=== PATIENT | female | born 2000 | race Caucasian/White ===

== ENCOUNTER 2019-03-05 14:48 | Outpatient (RCR) | payer OTHER, SELFPAY ==
[2019-02-02 12:21] LABS: Hematocrit 30.2 % (37.0-47.0); Hemoglobin 9.9 g/dL (12.0-15.0)
[2019-02-02 12:33] LABS: Glucose 1 Hour PP 50gm Dose 80 mg/dL
[2019-02-02 13:14] LABS: HIV 1/2 Ab P24 Ag Result Negative (Negative)
[2019-02-02] MEDS: RHO(D) IMMUNE GLOBULIN 300 MCG SYRINGE IM (18:10)
[2019-02-03 09:15] LABS: Rapid Plasma Reagin Non-Reactive (NonReactive)
== END 2019-05-03 23:59 | disposition home or self-care (01) ==
PROVIDERS: Visit Provider Obstetrics & Gynecology
DX: Z36.89 Encounter for other specified antenatal screening (principal); Z29.13 Encounter for prophylactic Rho(D) immune globulin; O36.0990 Maternal care for other rhesus isoimmunization, unspecified trimester, not applicable or unspecified; Z3A.00 Weeks of gestation of pregnancy not specified
CPT/HCPCS: 36415; 36430; 82947; 85014; 85018; 86592; 86703; 86850; 90384; 96372; G0432; J2790

== ENCOUNTER 2019-04-10 09:51 | Observation (INO) | payer OTHER, SELFPAY ==
[2019-04-10 10:00] VITALS: BMI 41.8
[2019-04-10 10:31] VITALS: BP 122/105; PULSE 137
[2019-04-10 10:46] VITALS: BP 137/101; PULSE 86
[2019-04-10 11:01] VITALS: BP 138/62; PULSE 97
[2019-04-10 11:16] VITALS: BP 141/79; PULSE 84
[2019-04-10 11:31] VITALS: BP 137/95; PULSE 85
[2019-04-10 11:37] VITALS: BP 121/66; PULSE 74
--- NOTE | 2019-04-10 14:50 | OBADM ---
This patient, Rain Ramirez, admitted to the OB room OB Post 115 for observation. Patient/family oriented to hospital policies and general routines including ID bracelet, bed and alarms, visiting hours, pain management, procedures, bathroom and other care routines, personal items, smoking policy, room service/diet, and visiting hours. Patient/Family are encouraged to report perceived risks to care and to ask questions if they do not understand what they are told or what they should do.
--- NOTE | 2019-04-24 12:14 | PM.OBTRLD ---
OB - Triage/Final Diagnosis Final Diagnosis (1) False labor: Code(s): O47.9 - False labor, unspecified Status: Acute
== END 2019-04-10 12:20 | disposition home or self-care (01) ==
PROVIDERS: Admitting Provider Obstetrics & Gynecology; Visit Provider Obstetrics & Gynecology
DX: O47.03 False labor before 37 completed weeks of gestation, third trimester (principal); Z3A.36 36 weeks gestation of pregnancy
CPT/HCPCS: G0378; G0379

== ENCOUNTER 2019-04-21 16:49 | Observation (INO) | payer OTHER, SELFPAY ==
--- NOTE | 2019-04-21 16:49 | OBADM ---
This patient, Rain Ramirez, admitted to the OB room Labor/Delivery/Recovery 105 for observation. Patient/family oriented to hospital policies and general routines including ID bracelet, bed and alarms, visiting hours, pain management, procedures, bathroom and other care routines, personal items, smoking policy, room service/diet, and visiting hours. Patient/Family are encouraged to report perceived risks to care and to ask questions if they do not understand what they are told or what they should do.
[2019-04-21 18:15] VITALS: BMI 42.5
[2019-04-21 19:06] VITALS: RESP 20; TEMP 37
[2019-04-21 19:07] VITALS: BP 134/74; PULSE 90
[2019-04-21 19:16] VITALS: BP 132/83; PULSE 99
--- NOTE | 2019-05-17 12:01 | PM.OBTRLD ---
OB - Triage/Final Diagnosis Visit Information Date of evaluation: 03/23/19 Reason for evaluation: threatened labor
== END 2019-04-21 19:43 | disposition home or self-care (01) ==
PROVIDERS: Admitting Provider Obstetrics & Gynecology; PCP Obstetrics & Gynecology; Visit Provider Obstetrics & Gynecology
DX: O47.1 False labor at or after 37 completed weeks of gestation (principal); Z3A.38 38 weeks gestation of pregnancy
CPT/HCPCS: G0378; G0379

== ENCOUNTER 2019-10-26 13:03 | Outpatient (CLI) | payer OTHER, SELFPAY ==
[2019-10-26 13:51] LABS: Basophils Percent Auto 0.3 % (0.2-1.2); Eosinophils Absolute Auto 0.2 K/mm3 (0-0.3); Eosinophils Percent Auto 2.7 % (0-4.4); Hematocrit 36.5 % (37.0-47.0); Hemoglobin 11.9 g/dL (12.0-15.0); Immature Granulocyte Absolute 0.03 K/mm3 (0.00-0.031); Immature Granulocyte Percent A 0.4 % (0-0.5); Lymphocytes Absolute Auto 2.14 K/mm3 (0.9-3.2); Mean Corpuscular HGB Conc 32.6 g/dl (32-36); Mean Corpuscular Hemoglobin 24.9 pg (26-34); Mean Corpuscular Volume 76.5 fl (80-100); Mean Platelet Volume 11.2 fl (7.4-10.4); Monocytes Absolute Auto 0.4 K/mm3 (0.1-0.6); Monocytes Percent Auto 5.9 % (2.6-8.5); Neutrophils Absolute Auto 4.3 K/mm3 (1.3-6.7); Neutrophils Percent Auto 60.7 % (45.5-73.1); Platelet Count Result 252 k/mm3 (150-375); Red Blood Count 4.77 M/mm3 (4.2-5.4); Red Cell Distribution Width 15.4 % (11.5-14.5); White Blood Count 7.1 K/mm3 (4.5-10.0)
[2019-10-26 14:04] LABS: Alanine Aminotransferase 23 U/L (4-35); Albumin Level 4.2 g/dL (3.5-5.1); Alkaline Phosphatase 113 U/L (38-126); Anion Gap 12.2 mmol/L (7-16); Aspartate Amino Transferase 23 U/L (14-36); Bilirubin,Total 0.1 mg/dL (0.2-1.3); Blood Urea Nitrogen 13 mg/dL (7-17); Calcium 8.7 mg/dL (8.4-10.2); Carbon Dioxide 24 mmol/L (22-30); Chloride 106 mmol/L (98-107); Estimated Glomerular Filt Rate > 60; Glucose 108 mg/dL (65-105); Potassium 4.2 mmol/L (3.4-5.0); Sodium 138 mmol/L (137-145)
[2019-10-26 14:09] LABS: Rheumatoid Factor < 8.6 IU/ML (<12)
[2019-10-26 14:27] LABS: Erythrocyte Sedimentation Rate 11 mm/hr (0-20)
== END 2019-10-26 13:04 | disposition home or self-care (01) ==
PROVIDERS: Visit Provider Internal Medicine
DX: E03.9 Hypothyroidism, unspecified (principal); E78.2 Mixed hyperlipidemia; D53.9 Nutritional anemia, unspecified
CPT/HCPCS: 36415; 80053; 82607; 84443; 85025; 85652; 86430

== ENCOUNTER 2020-06-20 12:31 | Emergency (ER) | payer OTHER, SELFPAY ==
--- NOTE | ~2020-06-20 | XR_ITS ---
[[id number] ] INDICATION: Left rib pain TECHNIQUE: Frontal projection of the upper left ribs, frontal projection of the lower left ribs, obli que projection of all the left ribs, frontal inspiratory chest x-ray for interpretation. FINDINGS: There are no displaced rib fractures identified. There are no soft tissue abnormality see n. The lungs are clear. IMPRESSION: 1:No displaced rib fractures. Reviewed, dictated and finalized at location A.
[2020-06-20 12:33] VITALS: BP 142/88; PULSE 85; RESP 16; TEMP 36.4; O2SAT 100
--- NOTE | 2020-06-20 14:15 | ED.GENADULT ---
HPI - General Adult General Chief complaint: Fall Stated complaint: Fall on Wednesday/ right rib pain Time Seen by Provider: 06/20/20 12:46 History of Present Illness HPI narrative: Patient is a 19-year-old female otherwise healthy who comes to the emergency room today complaining of pain in left ribs and left sided headache after mechanical fall 2 days ago. Patient reports that she was in her bathroom and she slipped on the wet floor and her left side landed in the bathtub. She thinks that she landed on the left side of her rib cage and she did hit the left side of her head. She did not lose consciousness, there has been no vomiting and she is not on blood thinners. She says that she has been feeling foggy meaning that she is having some trouble concentrating since this fall. Her left-sided rib pain is worse with movements of her trunk. It does get worse with deep breaths but she does not feel short of breath and she does not have much pain with coughing. Denies any other injuries or symptoms or concerns. Does not believe that she is . Related Data Home Medications Medication Instructions Recorded Confirmed PNV cmb#95-ferrous fumarate-FA 1 tablet PO DAILY 03/05/19 04/21/19 [] Allergies Allergy/AdvReac Type Severity Reaction Status Date / Time sumatriptan Allergy Mild Hives Verified 04/14/19 14:31 amoxicillin Allergy Unknown Hives / Verified 04/14/19 14:31 Red Face Penicillins Allergy Unknown Rash Verified 04/14/19 14:31 Review of Systems Constitutional: Constitutional: Reports as per HPI, Denies fever(s), Denies night sweats and Denies weakness Cardiovascular: Cardiovascular: Denies chest pain, Denies edema, Denies leg edema, Denies dyspnea and Denies orthopnea Respiratory: Respiratory: Denies cough and Denies dyspnea Gastrointestinal: Gastrointestinal: Denies abdominal pain, Denies constipation, Denies diarrhea, Denies nausea and Denies vomiting Musculoskeletal: Musculoskeletal: Reports as per HPI (See HPI for left-sided rib pain), Denies abnormal gait, Denies back pain, Denies numbness and Denies tingling Neurologic: Denies Abnormal speech present, Denies abnormal gait, Denies numbness, Denies tingling and Denies weakness Comments: See HPI for left-sided headache Psychiatric: Psychiatric: Denies homicidal ideation and Denies suicidal ideation [facility] Past Medical History Medical History (Updated 06/20/20 @ 15:12 by Lucas Armstrong PA-C) Anxiety Arthritis Depression Migraine Family History Family History Father Diabetes mellitus Cataract Grandparent Cataract Diabetes mellitus Other Breast cancer Social History Social History Smoking status: Former smoker Substance use: never Gender identity (if verbalized by the patient): Female Spiritual care concerns: No Exam Const: General: cooperative, healthy appearing, comfortable, no acute distress, well developed, alert, awake and Physically active Orientation/consciousness: patient oriented x3 Other: Pleasant, no distress HENMT: Head: normal to inspection, normocephalic, atraumatic (Of ecchymosis, edema or any signs of trauma) and other (Nontender to palpate over left side of head ) Ears: external ears normal General nose exam: Normal external nose present Other: Negative berman sign. No hemotympanum. Negative raccoon eyes. Eyes: Pupils: Equal, round and reactive pupils present EOM: EOMs intact bilaterally Neck: Neck: normal visual inspection Chest: Chest palpation & inspection: normal inspection of the chest and no tenderness Resp: Effort & Inspection: normal respiratory effort and able to speak in complete sentences Auscultation: clear to auscultation bilaterally Cardio: Rate: regular rate Rhythm: regular rhythm GI: Inspection: normal to inspection GI Palp: No abdominal tenderness : General: Yes no CVA tenderness Back/Spine/Pelvis
== END 2020-06-20 15:46 | disposition home or self-care (01) ==
PROVIDERS: Emergency Provider Emergency Medicine; PCP Internal Medicine
DX: S20.212A Contusion of left front wall of thorax, initial encounter (principal); S06.0X0A Concussion without loss of consciousness, initial encounter; F41.9 Anxiety disorder, unspecified; M19.90 Unspecified osteoarthritis, unspecified site; F32.9 Major depressive disorder, single episode, unspecified; W18.2XXA Fall in (into) shower or empty bathtub, initial encounter
CPT/HCPCS: 71101; 99283

== ENCOUNTER 2021-06-03 15:27 | Outpatient (CLI) | payer OTHER, SELFPAY ==
--- NOTE | ~2021-06-03 | US_ITS ---
EXAMINATION: US abdomen limited EXAM DATE: 06/03/2021 15:55 INDICATION: Abdominal pain. TECHNIQUE: Multiple grayscale and Doppler images of the abdomen right upper quadrant were obtained (anderson y a technologist who performed the scan) and subsequently reviewed. There is no prior study for leobardo priest. FINDINGS: The pancreatic head and body are normal in appearance. The pancreatic tail is not visualized. The l iver has normal echogenicity and contour. There are no focal liver lesions identified. There is no evidence of intrahepatic biliary duct dilation. Portal venous flow was seen in the hepatopedal, nor mal direction and has normal Doppler waveform. No right-sided hydronephrosis. Common bile duct measures 4 mm, which is normal. The gallbladder wall is normal in thickness, with ex pected amount of distention. No sonographic evidence of pericholecystic fluid. There is no cholelit hiases. Technologist performing exam reports patient did not demonstrate sonographic Castaneda's sign. Please note that this sign is less reliable in patients who have received pain medication. IMPRESSION: 1. Unremarkable abdominal ultrasound exam. Reviewed, dictated and finalized at location A. 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
[2021-06-03 16:24] LABS: Basophils Percent Auto 0.2 % (0.2-1.2); Eosinophils Absolute Auto 0.1 K/mm3 (0-0.3); Hematocrit 39.3 % (37.0-47.0); Immature Granulocyte Absolute 0.02 K/mm3 (0.00-0.031); Immature Granulocyte Percent A 0.2 % (0-0.5); Lymphocytes Absolute Auto 2.82 K/mm3 (0.9-3.2); Lymphocytes Percent Auto 29.9 % (18.3-44.2); Mean Corpuscular HGB Conc 33.1 g/dl (32-36); Mean Corpuscular Hemoglobin 26.4 pg (26-34); Mean Corpuscular Volume 79.9 fl (80-100); Mean Platelet Volume 10.4 fl (7.4-10.4); Monocytes Absolute Auto 0.4 K/mm3 (0.1-0.6); Monocytes Percent Auto 4.6 % (2.6-8.5); Neutrophils Percent Auto 64.1 % (45.5-73.1); Platelet Count Result 239 k/mm3 (150-375); Red Blood Count 4.92 M/mm3 (4.2-5.4); Red Cell Distribution Width 14.6 % (11.5-14.5); White Blood Count 9.4 K/mm3 (4.5-10.0)
[2021-06-03 16:40] LABS: Add Urine Microscopic? YES; Appearance Urine Cloudy (Clear); Bacteria Urine Trace /hpf; Bilirubin Urine Negative (Negative); Blood Urine Negative (Negative); Color Urine Yellow (Yellow); Glucose Urine UA Negative (Negative); Ketones Urine Negative (Negative); Leukocyte Esterase Ur Negative LEU/UL (NEGATIVE); Mucus Urine Rare /lpf; Nitrate Urine Negative (Negative); Protein Urine Negative (Negative); Specific Grav Ur 1.027 (1.001-1.035); Squamous Epithelial Cell Urine Many /hpf (Few); Urobilinogen Urine Negative mg/dL (<2.0); WBC Urine 0-3 /hpf (0-3)
[2021-06-03 16:58] LABS: Alanine Aminotransferase 19 U/L (4-35); Albumin Level 4.2 g/dL (3.5-5.1); Alkaline Phosphatase 70 U/L (38-126); Amylase 78 U/L (30-110); Anion Gap 5 mmol/L (8-16); Aspartate Amino Transferase 26 U/L (14-36); Bilirubin,Total 0.5 mg/dL (0.2-1.3); Blood Urea Nitrogen 11 mg/dL (7-17); Carbon Dioxide 29 mmol/L (22-30); Chloride 105 mmol/L (98-107); Estimated Glomerular Filt Rate > 60; Glucose 82 mg/dL (65-110); Potassium 4.2 mmol/L (3.4-5.0); Sodium 139 mmol/L (137-145)
[2021-06-04 11:49] LABS: LDL Cholesterol Direct 116 mg/dL
[2021-06-04 11:55] LABS: Beta HCG Quantitative < 2.39 mIU/ML
== END 2021-06-03 15:28 | disposition home or self-care (01) ==
PROVIDERS: PCP Internal Medicine; Visit Provider Internal Medicine
DX: R10.9 Unspecified abdominal pain (principal); E11.65 Type 2 diabetes mellitus with hyperglycemia; D53.9 Nutritional anemia, unspecified; E03.9 Hypothyroidism, unspecified; N39.0 Urinary tract infection, site not specified; E78.2 Mixed hyperlipidemia; K58.9 Irritable bowel syndrome, unspecified
CPT/HCPCS: 36415; 76705; 80053; 81001; 82150; 82607; 83721; 84443; 84702; 85025

== ENCOUNTER 2021-08-20 09:59 | Emergency (ER) | payer BC, OTHER, SELFPAY ==
--- NOTE | ~2021-08-20 | US_ITS ---
EXAMINATION: US OB <= 14 weeks fetus DATE: 08/20/2021 13:09 INDICATION: Pelvic cramping. Evaluate heart motions. TECHNIQUE: Real-time transabdominal and transvaginal obstetric ultrasound. FINDINGS: No prior studies for comparison. There is an intrauterine gestational sac, with pole identified. The crown rump length measures 2.16 cm, which correlates with a estimated gestational age of 8 weeks 6 days. No heart motions are detected. The ovaries are within normal limits. IMPRESSION: 1. Intrauterine gestational sac containing pole which corresponds to 8 week 6 day gestation. No heart motions are detected, compatible with demise. Recommend follow-up with serial edith titative beta-hCG levels and ultrasound as clinically indicated. Reviewed, dictated and finalized at location A. IMPRESSION: 1. Intrauterine gestational sac containing pole which corresponds to 8 we ek 6 day gestation. No heart motions are detected, compatible with demise. Recommend follow-up with serial quantitative beta-hCG levels and ultras ound as clinically indicated.
[2021-08-20 10:02] VITALS: BP 128/66; PULSE 98; RESP 18; TEMP 36.4; O2SAT 98
[2021-08-20 10:38] LABS: Basophils Percent Auto 0.3 % (0.2-1.2); Eosinophils Absolute Auto 0.2 K/mm3 (0-0.3); Hematocrit 37.6 % (37.0-47.0); Hemoglobin 12.6 g/dL (12.0-15.0); Immature Granulocyte Absolute 0.02 K/mm3 (0.00-0.031); Immature Granulocyte Percent A 0.3 % (0-0.5); Lymphocytes Absolute Auto 2.32 K/mm3 (0.9-3.2); Lymphocytes Percent Auto 30.4 % (18.3-44.2); Mean Corpuscular HGB Conc 33.5 g/dl (32-36); Mean Corpuscular Hemoglobin 27.2 pg (26-34); Mean Corpuscular Volume 81.2 fl (80-100); Mean Platelet Volume 10.5 fl (7.4-10.4); Monocytes Absolute Auto 0.5 K/mm3 (0.1-0.6); Monocytes Percent Auto 6.2 % (2.6-8.5); Neutrophils Absolute Auto 4.6 K/mm3 (1.3-6.7); Neutrophils Percent Auto 59.8 % (45.5-73.1); Platelet Count Result 233 k/mm3 (150-375); Red Blood Count 4.63 M/mm3 (4.2-5.4); Red Cell Distribution Width 14.3 % (11.5-14.5); White Blood Count 7.6 K/mm3 (4.5-10.0)
[2021-08-20 11:53] VITALS: BP 110/62; PULSE 79; RESP 16; TEMP 36.8; O2SAT 100
--- NOTE | 2021-08-20 12:15 | PC.NURSE ---
unable to dopple heart tones
--- NOTE | 2021-08-20 12:35 | ED.PREGNANCY ---
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 She presents today with complaints of lower abdominal cramping that started last night. Patient denies any vaginal bleeding or vaginal discharge. Patient states she has been to the OB already and IUP is confirmed. Patient denies any aggravating or alleviating factors. Related Data Home Medications Medication Instructions Recorded Confirmed vit no.95-ferrous 1 tablet PO DAILY 03/05/19 04/21/19 fumarate 28 mg-folic acid 800 mcg tablet () Allergies Allergy/AdvReac Type Severity Reaction Status Date / Time sumatriptan Allergy Mild Hives Verified 04/14/19 14:31 amoxicillin Allergy Unknown Hives / Verified 04/14/19 14:31 Red Face Penicillins Allergy Unknown Rash Verified 04/14/19 14:31 Review of Systems Review of Systems: CONSTITUTIONAL: Denies fever, chills, or sweats. EYES: Denies visual changes, redness, or discharge. ENT: Denies rhinorrhea, congestion, sore throat, or otalgia. CARDIOVASCULAR: Denies chest pain, palpitations, or edema. RESPIRATORY: Denies cough or dyspnea. GASTROINTESTINAL: Denies abdominal pain, nausea, vomiting, or diarrhea. GENITOURINARY: Lower abdominal cramping. Denies dysuria or hematuria. SKIN: Denies rash or itching. MUSCULOSKELETAL: Denies back pain, joint pain, or myalgia. NEUROLOGIC: Denies headache, numbness, dizziness, or weakness. PSYCHIATRIC: Denies anxiety or depression. [facility] Past Medical History Medical History Anxiety Arthritis Depression Migraine Family History Family History Father Diabetes mellitus Cataract Grandparent Cataract Diabetes mellitus Other Breast cancer Social History Social History Smoking status: Former smoker Substance use: never Gender identity (if verbalized by the patient): Female Spiritual care concerns: No Exam Narrative: GENERAL: Well-appearing, well-nourished, and in no acute distress. HEAD: Normocephalic, atraumatic. EYES: PERRLA and EOMI. ENT: Nares clear, no rhinorrhea or epistaxis. Mucous membranes moist. Oropharynx without tonsillar hypertrophy exudate or other lesions. Bilateral TMs pearly garcia nonbulging NECK: Supple. No adenopathy or masses. No carotid bruits or JVD CHEST: Clear to auscultation. No respiratory distress. No wheezes rales or rhonchi HEART: Regular rate and rhythm. No murmur heard. Normal peripheral pulses. ABDOMEN: Soft, nontender, nondistended, normal active bowel sounds. Unable to obtain heart rate with Doppler. Ultrasound ordered EXTREMITIES: Normal range of motion. No edema. SKIN: Warm, dry, no rash. NEURO: No focal deficits. Alert and oriented x3. PSYCH: Normal mood and affect. Course Course Emergency Course: Patient updated with ultrasound results that is correlates with 8 weeks gestation. Patient aware at current time there is not a heartbeat found. Patient aware of need for repeat hCG on Wednesday. Patient given information on abdominal pain in , threatened miscarriage, and instructed to make an appointment on Wednesday with Dr. Hawthorne. Consultations Consultation #1: Dr. Hawthorne consulted and aware of ultrasound. Requests repeat hCG on Wednesday order given. RhoGAM ordered and given today. Patient to follow-up on Wednesday with him. Discharged home Vital Signs Vital signs: Vital Signs Temperature 36.4 C 08/20/21 10:02 Pulse Rate 98 08/20/21 10:02 Respiratory Rate 18 08/20/21 10:02 Blood Pressure 128/66 08/20/21 10:02 Pulse Oximetry 98 08/20/21 10:02 Oxygen Delivery Room Air
[2021-08-20] MEDS: RHO(D) IMMUNE GLOBULIN 300 MCG/2 ML SYRINGE IM (14:42)
== END 2021-08-20 14:42 | disposition home or self-care (01) ==
PROVIDERS: Family Medicine; Emergency Provider Nurse Practitioner Family; PCP Internal Medicine
DX: O20.0 Threatened abortion (principal); Z3A.08 8 weeks gestation of pregnancy; Z87.891 Personal history of nicotine dependence
CPT/HCPCS: 36415; 76801; 84702; 85025; 85461; 90384; 96372; 99284; J2790

== ENCOUNTER 2021-08-22 12:02 | Outpatient (CLI) | payer BC, OTHER, SELFPAY | END 2021-08-22 12:03 | disposition home or self-care (01) | PROVIDERS: PCP Internal Medicine; Visit Provider Nurse Practitioner Family | DX: O20.0 Threatened abortion (principal); Z3A.00 Weeks of gestation of pregnancy not specified | CPT/HCPCS: 36415; 84702 ==

== ENCOUNTER 2021-09-21 06:24 | Emergency (ER) | payer BC, MEDICAID, SELFPAY ==
[2021-09-21 06:31] VITALS: BP 123/76; PULSE 96; RESP 18; TEMP 36.6; O2SAT 98
--- NOTE | 2021-09-21 07:20 | ED.GENADULT ---
HPI - General Adult General Chief complaint: Headache Stated complaint: headache Time Seen by Provider: 09/21/21 06:48 History of Present Illness HPI narrative: 20-year-old female presenting the emergency department for evaluation of migraine headache along with posterior headache and sore throat. Patient states over the last 2 days she began developing a sore throat. Patient states she has also been having increased migraine frequency since August 20. Patient states she has had increased life stressors recently. And patient attributes this to her increased migraine frequency. Patient describes her current headache as frontal and as a band that wraps around the back of her head. Patient does have associated light sensitivity with nausea. Related Data Home Medications Medication Instructions Recorded Confirmed vit no.95-ferrous 1 tablet PO DAILY 03/05/19 04/21/19 fumarate 28 mg-folic acid 800 mcg tablet () Allergies Allergy/AdvReac Type Severity Reaction Status Date / Time sumatriptan Allergy Mild Hives Verified 04/14/19 14:31 amoxicillin Allergy Unknown Hives / Verified 04/14/19 14:31 Red Face Penicillins Allergy Unknown Rash Verified 04/14/19 14:31 diphenhydramine Allergy Chest Pain Verified 09/21/21 07:22 [From Benadryl] Review of Systems Review of Systems: CONSTITUTIONAL: Denies fever, chills, or sweats. EYES: Denies visual changes, redness, or discharge. ENT: Denies rhinorrhea, congestion, sore throat, or otalgia. CARDIOVASCULAR: Denies chest pain, palpitations, or edema. RESPIRATORY: Denies cough or dyspnea. GASTROINTESTINAL: Denies abdominal pain, nausea, vomiting, or diarrhea. GENITOURINARY: Denies dysuria or hematuria. SKIN: Denies rash or itching. MUSCULOSKELETAL: Denies back pain, joint pain, or myalgia. NEUROLOGIC: See HPI [facility] Past Medical History Medical History Anxiety Arthritis Depression Migraine Family History Family History Father Diabetes mellitus Cataract Grandparent Cataract Diabetes mellitus Other Breast cancer Social History Social History Smoking status: Former smoker Substance use: never Gender identity (if verbalized by the patient): Female Spiritual care concerns: No Exam Narrative: APPEARANCE: Well appearing, no pain, no distress, well-nourished. HEAD: normocephalic, atraumatic. EYES: PERRLA/EOMI, conjunctivae clear. NOSE: Normal no drainage EARS:TMS clear with good light reflex. THROAT: Pharynx clear, no exudate. NECK: Supple. No adenopathy, no masses. RESPIRATORY: Airway patent, respirations nonlabored. Clear to auscultation bilaterally, no rales, rhonchi, wheezing. CARDIOVASCULAR: Regular rate and rhythm without murmurs rubs or gallops. ABDOMINAL: Soft, nontender, nondistended, normal bowel sounds MUSCULOSKELETAL: Moves all extremities. Strength/ROM intact, No edema, No calf tenderness. NEURO: Alert. Cranial nerves II through XII intact. Good gait. Good coordination. No meningeal signs SKIN: Warm, dry. Normal Color Course Course Emergency Course: Patient reports her headache is resolved. Patient is resting comfortably. Patient's COVID test was negative. Patient was updated on the results of her work-up. Patient was comfortable with the plan for discharge and close follow-up with her primary care physician. All questions and concerns were addressed. Vital Signs Vital signs: Vital Signs Temperature 97.8 F 09/21/21 06:31 Pulse Rate 96 09/21/21 06:31 Respiratory Rate 18 09/21/21 06:31 Blood Pressure 123/76 09/21/21 06:31 Pulse Oximetry 98 09/21/21 06:31 Oxygen Delivery Room Air 09/21/21 06:31 Temperature 97.8 F 09/21/21 06:31 Pulse Rate 75 09/21/21 09:32 Respiratory Rate 18 09/21/21 09:32 Blood Pressure 107/64
[2021-09-21] MEDS: PROCHLORPERAZINE EDISYLATE 10 MG/2 ML VIAL IV PUSH (07:41)
[2021-09-21] MEDS: SODIUM CHLORIDE 0.9% IV 1,000 ML 999 ML IV CONT (07:41)
[2021-09-21 08:04] LABS: SARS-CoV-2 RNA PCR Negative
[2021-09-21] MEDS: KETOROLAC 15 MG/ML VIAL (*BKC) IV PUSH (08:06)
[2021-09-21 08:09] VITALS: BP 126/75; PULSE 88; RESP 16; O2SAT 99
[2021-09-21 09:32] VITALS: BP 107/64; PULSE 75; RESP 18; O2SAT 98
== END 2021-09-21 09:34 | disposition home or self-care (01) ==
PROVIDERS: Emergency Provider Emergency Medicine; PCP Internal Medicine
DX: R51.9 Headache, unspecified (principal); Z20.822 Contact with and (suspected) exposure to COVID-19; M19.90 Unspecified osteoarthritis, unspecified site
CPT/HCPCS: 81025; 87081; 96361; 96374; 96375; 99284; C9803; J0780; J1885; J7030; U0003; U0005

== ENCOUNTER 2021-10-06 17:23 | Outpatient (CLI) | payer BC, MEDICAID, SELFPAY ==
[2021-10-06 18:05] LABS: Basophils Absolute Auto 0.02 K/mm3 (0.00-0.10); Basophils Percent Auto 0.2 % (0.0-1.0); Eosinophils Absolute Auto 0.16 K/mm3 (0.02-0.50); Eosinophils Percent Auto 1.6 % (1.0-6.0); Hematocrit 38.6 % (35.0-49.0); Hemoglobin 12.4 g/dL (12.0-15.0); Immature Granulocyte Absolute 0.05 K/mm3 (0.00-0.00); Immature Granulocyte Percent A 0.5 % (0.0-0.0); Lymphocytes Absolute Auto 2.89 K/mm3 (1.10-4.50); Lymphocytes Percent Auto 28.8 % (18.0-42.0); Mean Corpuscular HGB Conc 32.1 g/dL (32.0-36.0); Mean Corpuscular Hemoglobin 26.6 pg (27.0-31.0); Mean Corpuscular Volume 82.8 fL (78.0-102.0); Mean Platelet Volume 10.3 fl (9.2-11.8); Monocytes Absolute Auto 0.62 K/mm3 (0.10-0.90); Monocytes Percent Auto 6.2 % (2.0-11.0); Neutrophils Absolute Auto 6.3 K/mm3 (1.7-7.2); Neutrophils Percent Auto 62.7 % (50.0-70.0); Platelet Count Result 252 K/mm3 (150-420); Red Blood Count 4.66 M/mm3 (4.20-5.40); Red Cell Distribution Width 14.1 % (11.6-14.4)
[2021-10-06 18:36] LABS: Alanine Aminotransferase 24 U/L (14-59); Albumin Level 3.5 g/dL (3.4-5.0); Alkaline Phosphatase 100 U/L (46-116); Anion Gap 6 mmol/L (8-16); Aspartate Amino Transferase 11 U/L (15-37); Bilirubin,Total 0.2 mg/dL (0.00-1.00); Blood Urea Nitrogen 16 mg/dL (7-18); Calcium 8.5 mg/dL (8.5-10.1); Carbon Dioxide 28 mmol/L (21-32); Chloride 105 mmol/L (98-108); Estimated Glomerular Filt Rate > 60; Ferritin 46 ng/mL (8-252); Glucose 109 mg/dL (70-99); Iron 47 ug/dL (50-170); Osmolality Calculated 290 mOsm/kg (285-295); Percent Iron Saturation 15 % (12-57); Potassium 4.6 mmol/L (3.5-5.1); Sodium 139 mmol/L (136-145); Thyroid Stimulating Hormone 2.48 uIU/mL (0.36-3.74); Total Protein 6.7 g/dL (6.4-8.2)
[2021-10-08 17:21] LABS: Vitamin D 25 Hydroxy 20 ng/mL (30-100)
== END 2021-10-06 17:24 | disposition home or self-care (01) ==
LOC: CHSLAB 17:26
PROVIDERS: PCP Clinical Nurse Specialist; Visit Provider Clinical Nurse Specialist
DX: G43.909 Migraine, unspecified, not intractable, without status migrainosus (principal); E64.9 Sequelae of unspecified nutritional deficiency; E07.9 Disorder of thyroid, unspecified; E55.9 Vitamin D deficiency, unspecified
CPT/HCPCS: 36415; 80053; 82306; 82728; 83540; 83550; 84443; 85025

== ENCOUNTER 2023-04-08 08:52 | Emergency (ER) | payer OTHER, SELFPAY ==
[2023-04-08 09:35] VITALS: BP 115/69; PULSE 79; RESP 20; TEMP 36.7; O2SAT 100
--- NOTE | 2023-04-08 09:58 | ED.FEMALEGU ---
HPI - Female Genitourinary General Chief complaint: Urogenital-Female Stated complaint: Sore Throat; Uti symptoms Time Seen by Provider: 04/08/23 09:53 Source: patient and RN notes reviewed Mode of arrival: ambulatory Limitations: no limitations History of Present Illness HPI Narrative: Patient presents today complaining of 3 day history of sore throat without any additional upper respiratory symptoms. Pain increases with swallowing. History of tonsillectomy. She has tried no [id number] treatment prior to arrival. She also reports a 2 day history of lower abdominal pressure and urinary frequency. Related Data Home Medications Medication Instructions Recorded Confirmed epinephrine 0.3 mg/0.3 mL 0.3 mg subcut ONCE 10/06/21 04/08/23 injection syringe Allergies Allergy/AdvReac Type Severity Reaction Status Date / Time sumatriptan Allergy Mild Hives Verified 04/14/19 14:31 amoxicillin Allergy Unknown Hives / Verified 04/14/19 14:31 Red Face Penicillins Allergy Unknown Rash Verified 04/14/19 14:31 diphenhydramine Allergy Chest Pain Verified 09/21/21 07:22 [From [facility]] Review of Systems Review of Systems: CONSTITUTIONAL: Denies body aches, fever, chills, or sweats. EYES: Denies visual changes, redness, or discharge. ENT: Denies rhinorrhea, congestion,or otalgia.+ sore throat CARDIOVASCULAR: Denies chest pain, palpitations, or edema. RESPIRATORY: Denies cough or dyspnea. GASTROINTESTINAL: Denies abdominal pain, nausea, vomiting, or diarrhea. GENITOURINARY: Denies dysuria or hematuria.+ lower abdominal pressure, frequency SKIN: Denies rash, itching, or wounds. MUSCULOSKELETAL: Denies back pain, joint pain, or myalgia. NEUROLOGIC: Denies headache, numbness, tingling, or weakness. PSYCH: Denies depression or anxiety. [facility] Past Medical History Medical History Allergies Anxiety Arthritis Depression Migraine Thyroid disorder Family History Family History Father Diabetes mellitus Cataract Grandparent Cataract Diabetes mellitus Hypertension Other Breast cancer Social History Social History Smoking status: Former smoker Alcohol intake: current Alcohol use details: occasionally Substance use type: does not use Gender identity (if verbalized by the patient): Female Spiritual care concerns: No Comments At time of signature, I have reviewed and agree with nursing past medical, surgical, social and family history unless otherwise noted. Please see nursing chart for further information. There is no relevant family history pertinent to the presenting complaint Exam Narrative: GENERAL: Well-appearing, well-nourished, and in no acute distress. HEAD: Normocephalic, atraumatic. EYES: EOMI. No redness or drainage. Conjunctivae normal. ENT: Mucous membranes pink and moist. Nares clear. No rhinorrhea. TMs normal bilaterally. Throat mildly erythematous without edema or exudate. Uvula midline. NECK: Normal AROM. Supple. No lymphadenopathy. CHEST: No respiratory distress. Clear to auscultation. HEART: Regular rate and rhythm. No murmur appreciated. ABDOMEN: Soft, nontender, nondistended, normal active bowel sounds. EXTREMITIES: Normal range of motion. No edema. SKIN: Warm, dry, no rash. Capillary refill normal. Normal skin turgor. NEURO: No focal deficits. Alert and oriented x3. Gait steady. PSYCH: Normal affect. No signs of depression or anxiety. Course Course Level of Care: Express Care Visit Vital Signs Vital signs: Vital Signs Temperature 98.1 F 04/08/23 09:35 Pulse Rate 79 04/08/23 09:35 Respiratory Rate 20 04/08/23 09:35 Blood Pressure 115/69 04/08/23 09:35 Pulse Oximetry 100 04/08/23 09:35 Temperature 98.1 F 04/08/23 09:35 Pulse Rate 79
== END 2023-04-08 10:26 | disposition home or self-care (01) ==
PROVIDERS: Emergency Provider Nurse Practitioner; PCP Clinical Nurse Specialist
DX: N30.01 Acute cystitis with hematuria (principal); B95.7 Other staphylococcus as the cause of diseases classified elsewhere; J02.9 Acute pharyngitis, unspecified; Z87.891 Personal history of nicotine dependence; M19.90 Unspecified osteoarthritis, unspecified site
CPT/HCPCS: 81003; 87077; 87081; 87086; 87088; 87880; 99213; G0463

== ENCOUNTER 2023-04-14 11:52 | Emergency (ER) | payer OTHER, SELFPAY ==
--- NOTE | 2023-04-14 11:58 | ED.URI ---
HPI - URI/Sore Throat General Chief Complaint: Upper Respiratory Infection Stated Complaint: BODY ACHES/COUGH/SWOLLEN GLANDS/LIGHT HEADED/MARTINI Time Seen by Provider: 04/14/23 11:58 Source: patient and RN notes reviewed History of Present Illness HPI Narrative: Patient is a 22-year-old female who presents to urgent care with complaints of body aches, chills, slight cough, swollen lymph nodes and lightheadedness. Patient is currently on Bactrim for UTI that was diagnosed in our facility on April 08 for Staphylococcus. Patient states that she has been taking the medication appropriately and has not used azo and 4 days. Patient states that she is urinating without difficulty and has increased her water intake. Patient states that symptoms started on Wednesday after she did a strenuous leg workout. Patient appears to be concerned for rhabdomyolysis however she has never had the condition in the past and does not currently show any signs or symptoms of rhabdomyolysis. Patient was also requesting to be retested for strep which was negative on April 08 as well as influenza. Patient has been taking Tylenol and ibuprofen at home and increasing fluid intake. No other acute complaints. No acute distress noted. Patient aware of the plan of care. Some parts of this dictation were generated by voice recognition software and may contain typographical and/or grammatical inaccuracies. Related Data Home Medications Medication Instructions Recorded Confirmed epinephrine 0.3 mg/0.3 mL 0.3 mg subcut ONCE 10/06/21 04/14/23 injection syringe metronidazole 500 mg tablet 500 mg PO DIRECTED 04/14/23 04/14/23 Allergies Allergy/AdvReac Type Severity Reaction Status Date / Time sumatriptan Allergy Mild Hives Verified 04/14/23 11:59 amoxicillin Allergy Unknown Hives / Verified 04/14/23 11:59 Red Face Penicillins Allergy Unknown Rash Verified 04/14/23 11:59 diphenhydramine Allergy Chest Pain Verified 04/14/23 11:59 [From [place]] Review of Systems Review of Systems: CONSTITUTIONAL: Reports of fever and chills EYES: Denies visual changes, redness, or discharge. ENT: Denies rhinorrhea, congestion, otalgia. Reports of sore throat CARDIOVASCULAR: Denies chest pain, palpitations, or edema. RESPIRATORY: Reports a mild cough without dyspnea GASTROINTESTINAL: Denies abdominal pain, nausea, vomiting, or diarrhea. GENITOURINARY: Denies dysuria or hematuria. SKIN: Denies rash or itching. MUSCULOSKELETAL: Reports body aches NEUROLOGIC: Denies headache, numbness, or weakness. All other systems reviewed are negative, except as documented in HPI. [facility] Past Medical History Medical History Allergies Anxiety Arthritis Depression Migraine Thyroid disorder Family History Family History Father Diabetes mellitus Cataract Grandparent Cataract Diabetes mellitus Hypertension Other Breast cancer Social History Social History Smoking status: Former smoker Alcohol intake: current Alcohol use details: occasionally Substance use type: does not use Gender identity (if verbalized by the patient): Female Spiritual care concerns: No Comments At the time of my signature, I reviewed and agree with the nursing past medical, surgical, social, and family history. There is no relevant family history pertinent to the patient complaint. Exam Narrative: GENERAL: This is a well-nourished, well-developed patient, in no apparent distress. Slightly flushed HEAD: normocephalic, atraumatic. EYES: PERRL. Sclera clear/white. Vision is grossly intact. EARS: External ears normal, auditory canals clear and without drainage, TMs normal without perforation. Hearing grossly intact. NOSE: External nose normal with no obvious nasal discharge, nares without r
[2023-04-14 12:10] VITALS: BP 114/68; PULSE 118; RESP 16; TEMP 37.6; O2SAT 99
== END 2023-04-14 12:39 | disposition home or self-care (01) ==
PROVIDERS: Emergency Provider Nurse Practitioner Family; PCP Clinical Nurse Specialist
DX: B34.9 Viral infection, unspecified (principal); Z87.891 Personal history of nicotine dependence; M19.90 Unspecified osteoarthritis, unspecified site
CPT/HCPCS: 87081; 87804; 87880; 99213; G0463

== ENCOUNTER 2023-04-14 17:32 | Inpatient (IN) | payer OTHER, SELFPAY ==
[2023-04-14] VITALS (15 sets, daily range): BP systolic 94–152; BP diastolic 56–67; PULSE 86–125; RESP 14–29; TEMP 36.7–37.6; O2SAT 97–99; BMI 38.5
--- NOTE | ~2023-04-14 | XR_ITS ---
EXAMINATION: XR chest 2V DATE: 04/15/2023 13:16 INDICATION: Fever. Neutropenia. TECHNIQUE: Frontal and lateral views of the chest were obtained on 3 radiographs. COMPARISON: Chest radiograph 06/20/2020 FINDINGS: There is no pneumonia, pleural effusion, or pneumothorax. The heart size is normal. IMPRESSION: 1. No acute cardiopulmonary disease. Reviewed, dictated and finalized at location [facility] [employer]
--- NOTE | 2023-04-14 18:02 | ED.GENADULT ---
HPI - General Adult General Chief complaint: Unspecified Stated complaint: fatigue; fever; feeling faint Time Seen by Provider: 04/14/23 17:49 Source: patient Mode of arrival: ambulatory Limitations: no limitations History of Present Illness HPI narrative: 22-year-old female history of anxiety/depression, migraine,,miscarriage 2 years ago, anaphylactic shock secondary to multiple agents, presented to an urgent care with body ache /sore throat and fatigue. She tested negative for strep but positive for urinary tract infection and received Bactrim. The patient went back to the urgent care today -- fever, fatigue -- generalized weakness -- sore throat -- the patient had unprotected sex in the past 2 weeks with different partners. No vaginal discharge. No lower abdominal pain. -- Body ache which came on after she worked out in the gym. she has sore leg muscles. Onset (ago): day(s) ( Seven days) Severity: moderate Quality: aching Pain Consistency: constant Relieving factors: none Exacerbating factors: none Related Data Home Medications Medication Instructions Recorded Confirmed epinephrine 0.3 mg/0.3 mL 0.3 mg subcut ONCE 10/06/21 04/14/23 injection syringe Allergies Allergy/AdvReac Type Severity Reaction Status Date / Time sumatriptan Allergy Mild Hives Verified 04/14/23 17:56 amoxicillin Allergy Unknown Hives / Verified 04/14/23 17:56 Red Face Penicillins Allergy Unknown Rash Verified 04/14/23 17:56 diphenhydramine Allergy Chest Pain Verified 04/14/23 17:56 [From Benadryl] Review of Systems Review of Systems: All systems reviewed & are unremarkable except as noted in HPI and below Constitutional: Constitutional: Reports as per HPI, Reports no additional constitutional complaints, Reports fatigue and Reports weakness Eyes: Eyes: Reports as per HPI and Reports no additional eye complaints ENT: Reports system reviewed and no additional complaints, except as documented and Reports as per HPI Cardiovascular: Cardiovascular: Reports as per HPI and Reports no additional cardiovascular complaints Respiratory: Respiratory: Reports as per HPI and Reports no additional respiratory complaints Gastrointestinal: Gastrointestinal: Reports as per HPI and Reports no additional gastrointestinal complaints Genitourinary: Genitourinary: Reports no additional female genitourinary complaints Comments: no vaginal discharge. Musculoskeletal: Musculoskeletal: Reports no additional musculoskeletal complaints and Reports as per HPI Integumentary/Breasts: Skin/Breast: Reports system reviewed and no additional complaints, except as docu and Reports as per HPI Neurologic: Reports system reviewed and no additional complaints, except as documented and Reports as per HPI Psychiatric: Psychiatric: Reports no additional psychiatric complaints and Reports as per HPI Endocrine: Endocrine: Reports no additional endocrine complaints and Reports as per HPI Hematologic/Lymphatic: Hematologic/Lymphatic: Reports no additional hematologic/lymphatic complaints and Reports as per HPI Allergic/Immunologic: Allergic/Immunologic: Reports no additional allergic/immunologic complaints and Reports as per HPI [facility] Past Medical History Medical History Allergies Anxiety Arthritis Depression Migraine Thyroid disorder Family History Family History Father Diabetes mellitus Cataract Grandparent Cataract Diabetes mellitus Hypertension Other Breast cancer Social History Social History Smoking status: Former smoker Alcohol intake: current Alcohol use details: occasionally Substance use type: does not use Gender identity (if verbalized by the patient): Female Spiritual care concerns: No Exam Const: General: no a
[2023-04-14 18:34] LABS: Hematocrit 37.9 % (35.0-49.0); Hemoglobin 12.5 g/dL (12.0-15.0); Mean Corpuscular Hemoglobin 25.7 pg (27.0-31.0); Mean Platelet Volume 10.6 fl (9.2-11.8); Platelet Count Result 154 K/mm3 (150-420); Red Blood Count 4.86 M/mm3 (4.20-5.40); Red Cell Distribution Width 14.5 % (11.6-14.4); White Blood Count 2.6 K/mm3 (4.8-10.8)
[2023-04-14 18:48] LABS: Appearance Urine Clear (Clear); Bilirubin Urine Negative (Negative); Blood Urine Negative (Negative); Color Urine Light Yellow (Yellow); Glucose Urine UA Negative (Negative); Ketones Urine 1+ (Negative); Leukocyte Esterase Ur Negative LEU/UL (Negative); Nitrate Urine Negative (Negative); Protein Urine Negative (Negative); Specific Grav Ur 1.015 (1.010-1.020); Urobilinogen Urine 0.2 mg/dL (0.2-1.0)
[2023-04-14 18:53] LABS: Pregnancy On Board Control Positive; Urine Pregnancy Test Negative
[2023-04-14 18:54] LABS: Add Urine Microscopic? YES; Bacteria Urine Trace /hpf; RBC Urine 0-2 /hpf (0-2); Squamous Epithelial Cell Urine Few /hpf (Few); WBC Urine 0-3 /hpf (0-3)
[2023-04-14 19:08] LABS: Alanine Aminotransferase 81 U/L (14-59); Albumin Level 3.6 g/dL (3.4-5.0); Alkaline Phosphatase 69 U/L (46-116); Anion Gap 10 mmol/L (8-16); Aspartate Amino Transferase 206 U/L (15-37); Band Neutrophils Percent 9 % (0-6); Bilirubin,Total 0.3 mg/dL (0.00-1.00); Blood Urea Nitrogen 12 mg/dL (7-18); Carbon Dioxide 25 mmol/L (21-32); Chloride 97 mmol/L (98-108); Estimated CRCL calculation 79 ml/min; Estimated Glomerular Filt Rate > 60; Glucose 129 mg/dL (70-99); Neutrophils Absolute Manual 2.08 K/mm3 (1.7-7.2); Neutrophils Percent Manual 71 % (46-73); Osmolality Calculated 275 mOsm/kg (285-295); Potassium 3.8 mmol/L (3.5-5.1); Sodium 132 mmol/L (136-145); Total Cells Counted 100
[2023-04-14 19:09] LABS: Basophils Percent Manual 0 % (0-1); Eosinophils Absolute Manual 0.13 K/mm3 (0.02-0.5); Eosinophils Percent Manual 5 % (1-6); Lymphocytes Absolute Manual 0.26 K/mm3 (1.1-4.5); Lymphocytes Percent Manual 10 % (18-44); Metamyelocytes Percent 2 %; Monocytes Absolute Manual 0.07 K/mm3 (0.1-0.90); Monocytes Percent Manual 3 % (3-9); Platelet Estimate Adequate (Adequate)
[2023-04-14] MEDS: AZITHROMYCIN 250 MG TABLET 1000 MG PO (19:16)
[2023-04-14 19:19] LABS: HIV 1 P24 AG Negative (Negative); HIV 1/2 AB Negative (Negative)
[2023-04-14 19:27] LABS: SARS-CoV-2 RNA PCR Negative (Negative)
[2023-04-14 19:30] LABS: Influenza A QL RT-PCR Negative (Negative); Influenza B QL RT-PCR Negative (Negative); RSV RNA, RT-PCR Negative (Negative)
[2023-04-14 19:36] LABS: Creatine Kinase 13359 U/L (26-192)
[2023-04-14] MEDS: cefTRIAXone 1 GM VIAL 0.5 GM IM (19:39)
--- NOTE | 2023-04-14 20:10 | PC.NURSE ---
Labs back and ERP spoke c pt about admit/transfer for Rhabdo dx. Pt wants transfer to [place]. 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
[2023-04-14] MEDS: methylPREDNISolone SOD SUCC 40 MG VIAL IV PUSH (20:11)
[2023-04-14] MEDS: SODIUM CHLORIDE 0.9% IV 1,000 ML 999 ML IV CONT ×3 (20:11→21:34)
--- NOTE | 2023-04-14 21:05 | PC.NURSE ---
Dr Aguilar called and spoke c Dr Segura, POC to admit here and not transfer to [place]. Pt informed on POC.
--- NOTE | 2023-04-14 21:35 | PC.NURSE ---
Pt c/o her mouth feeling itchy from the Rocephin, Order obtained for Claritin po since pt unable to take benedryl.
[2023-04-14] MEDS: LORATADINE 10 MG TABLET PO (21:58)
[2023-04-14] MEDS: ACETAMINOPHEN 325 MG TABLET 650 MG PO (21:58)
--- NOTE | 2023-04-14 22:32 | ADMGEN ---
This patient, Rain Ramirez, was admitted to 2nd Floor Room 209-1. Patient oriented to hospital policies and general routines including ID bracelet, bed and alarms, visiting hours, pain management, procedures, bathroom and other care routines, personal items, smoking policy, room service/diet, and visiting hours. Information on how to activate the Rapid Response Team has been discussed. Patient are encouraged to report perceived risks to care and to ask questions if they do not understand what they are told or what they should do.
[2023-04-14] MEDS: SODIUM CHLORIDE 0.9% IV 1,000 ML 250 ML IV CONT (23:26)
[2023-04-15] VITALS (8 sets, daily range): BP systolic 104–109; BP diastolic 41–68; PULSE 64–97; RESP 14–19; TEMP 36.6–38.6; O2SAT 98–100
[2023-04-15] MEDS: LACTATED RINGERS 1,000 ML 125 ML IV CONT ×3 (04:32→23:43)
[2023-04-15 05:25] LABS: Hematocrit 36.2 % (35.0-49.0); Hemoglobin 11.7 g/dL (12.0-15.0); Mean Corpuscular HGB Conc 32.3 g/dL (32.0-36.0); Mean Corpuscular Hemoglobin 25.8 pg (27.0-31.0); Mean Corpuscular Volume 79.7 fL (78.0-102.0); Mean Platelet Volume 11.2 fl (9.2-11.8); Platelet Count Result 144 K/mm3 (150-420); Red Blood Count 4.54 M/mm3 (4.20-5.40); Red Cell Distribution Width 14.6 % (11.6-14.4); White Blood Count 1.7 K/mm3 (4.8-10.8)
[2023-04-15 05:53] LABS: Band Neutrophils Percent 16 % (0-6); Basophils Percent Manual 0 % (0-1); Eosinophils Percent Manual 0 % (1-6); Lymphocytes Absolute Manual 0.25 K/mm3 (1.1-4.5); Lymphocytes Percent Manual 15 % (18-44); Metamyelocytes Percent 2 %; Monocytes Absolute Manual 0.06 K/mm3 (0.1-0.90); Monocytes Percent Manual 4 % (3-9); Myelocytes Percent 1 %; Neutrophils Absolute Manual 1.32 K/mm3 (1.7-7.2); Neutrophils Percent Manual 62 % (46-73); Total Cells Counted 100
[2023-04-15 05:54] LABS: Anion Gap 10 mmol/L (8-16); Atypical Lymphocytes Present; Blood Urea Nitrogen 8 mg/dL (7-18); Calcium 7.7 mg/dL (8.5-10.1); Carbon Dioxide 24 mmol/L (21-32); Chloride 103 mmol/L (98-108); Estimated CRCL calculation 103 ml/min; Estimated Glomerular Filt Rate > 60; Glucose 128 mg/dL (70-99); Osmolality Calculated 284 mOsm/kg (285-295); Platelet Estimate Adequate (Adequate); Potassium 4.6 mmol/L (3.5-5.1); Sodium 137 mmol/L (136-145)
[2023-04-15 06:58] LABS: Creatine Kinase 12087 U/L (26-192)
--- NOTE | 2023-04-15 08:11 | PM.IMHP ---
H&P: HPI History of Present Illness Date/Time: 04/15/23 08:11 Chief Complaint: body aches Narrative: This is a 22 year old female patient with vague symptoms including body aches and flu like symptoms who originally sought care in ER due to concern for STD like HIV causing symptoms. She reports she had intense workout on Wednesday04/10/23 and has been ill since then. On ER workup she received empiric treatment with azithromycin and Rocephin and developed localized pruritic rash at injection site. Labs were drawn and CK level over 13,000. Patient received IV fluids and admitted for rhabdomyolysis. Interestingly her UA was negative for occult blood/myoglobin. Minor cough reported. Negative Flu/RSV/Covid. WBC noted to be depressed at 1.7 this morning with 16% bands. No other infectious source beyond viral syndrome found. CXR negative, UA normal, patient just completed treatment for UTI with Bactrim. Patient to stay on IV fluids and recheck labs in the morning. Patient aware to expect 3-5 days before much improvement seen in CK levels. Review of Systems Review of Systems: All systems reviewed & are unremarkable except as noted in HPI and below PMFSH Past Medical History Medical History Allergies Anxiety Arthritis Depression Migraine Thyroid disorder Family History Family History Father Diabetes mellitus Cataract Grandparent Cataract Diabetes mellitus Hypertension Other Breast cancer Social History Social History Years smoked: 11 Smoking status: Former smoker Tobacco type: cigarettes and e-cigarettes/vaping Smoking end date: 02/06/24 Alcohol intake: never Alcohol use details: occasionally Substance use: current Substance use type: marijuana Last use: 04/12/2023 Do You Feel Safe in your Home?: Yes Lack of Transportation: No Lack of Food: Never True Current Housing: I Have Housing Concerned About Future Housing: No Difficulty Paying Gas/Electric Bills: No Difficulty Paying for Meds: No Currently Unemployed: No Education: High School Diploma/GED Difficulty w/ Childcare or Family Care: No Gender identity (if verbalized by the patient): Female Spiritual care concerns: Yes (Mormonism) Meds Home Medications and Allergies Home Medications Medication Instructions Recorded Confirmed Type epinephrine 0.3 mg/0.3 mL 0.3 mg subcut ONCE 10/06/21 04/14/23 History injection syringe Allergies Allergy/AdvReac Type Severity Reaction Status Date / Time sumatriptan Allergy Mild Hives Verified 04/14/23 17:56 amoxicillin Allergy Unknown Hives / Verified 04/14/23 17:56 Red Face Penicillins Allergy Unknown Rash Verified 04/14/23 17:56 diphenhydramine Allergy Chest Pain Verified 04/14/23 17:56 [[facility]] Vital Signs Vital Signs - 24 hr 04/14/23 17:32 04/14/23 18:19 04/14/23 20:00 Temperature 37.6 C H Pulse Rate 125 H 107 H Respiratory Rate 18 18 Blood Pressure 152/64 H Pulse Oximetry 98 Oxygen Delivery Room Air 04/14/23 20:13 04/14/23 21:40 04/14/23 20:30 Temperature 36.8 C 36.8 C Pulse Rate 106 H 97 94 Respiratory Rate 20 18 22 H Blood Pressure 94/56 L 115/63 Pulse Oximetry 99 99 99 Oxygen Delivery Room Air Room Air 04/14/23 20:31 04/14/23 20:45 04/14/23 20:46 Temperature Pulse Rate 96 102 H 96 Respiratory Rate 22 H 29 H 25 H Blood Pressure 104/67 102/62 Pulse Oximetry 98 98 99 Oxygen Delivery 04/14/23 21:00 04/14/23 21:01 04/14/23 21:15 Temperature Pulse Rate 97 97 86 Respiratory Rate 14 20 17 Blood Pressure 108/67 Pulse Oximetry 98 98 99 Oxygen Delivery 04/14/23 21:16 04/14/23 23:07 04/14/23 23:19 Temperature 36.7 C Pulse Rate 98 93 92 Respiratory Rate 16 18 Blood Pressure 109/58 L 97/56 L Pulse Oximetry
[2023-04-15 08:36] LABS: Chlamydia trachomatis NOT DETECTED (NOT DETECTE); Neisseria gonorrhoeae PCR NOT DETECTED (NOT DETECTE)
[2023-04-15 08:49] LABS: Alanine Aminotransferase 87 U/L (14-59); Albumin Level 2.9 g/dL (3.4-5.0); Alkaline Phosphatase 61 U/L (46-116); Aspartate Amino Transferase 192 U/L (15-37); Bilirubin,Total 0.2 mg/dL (0.00-1.00); Total Protein 6.1 g/dL (6.4-8.2)
[2023-04-15 09:06] LABS: Bilirubin Direct 0.1 mg/dL (0-0.2)
[2023-04-15] MEDS: ACETAMINOPHEN 325 MG TABLET 650 MG PO ×2 (12:04→17:35)
[2023-04-15] MEDS: LORATADINE 10 MG TABLET PO (18:02)
[2023-04-16] VITALS (8 sets, daily range): BP systolic 100–110; BP diastolic 53–55; PULSE 55–89; RESP 16–18; TEMP 35.9–38.7; O2SAT 95–99
[2023-04-16] MEDS: ACETAMINOPHEN 325 MG TABLET 650 MG PO ×2 (02:36→14:35)
[2023-04-16] MEDS: LORATADINE 10 MG TABLET PO (02:39)
[2023-04-16 05:57] LABS: Hematocrit 35.6 % (35.0-49.0); Hemoglobin 11.3 g/dL (12.0-15.0); Mean Corpuscular HGB Conc 31.7 g/dL (32.0-36.0); Mean Corpuscular Volume 78.8 fL (78.0-102.0); Mean Platelet Volume 10.8 fl (9.2-11.8); Platelet Count Result 163 K/mm3 (150-420); Red Blood Count 4.52 M/mm3 (4.20-5.40); Red Cell Distribution Width 14.6 % (11.6-14.4); White Blood Count 2.7 K/mm3 (4.8-10.8)
[2023-04-16 06:27] LABS: Alanine Aminotransferase 90 U/L (14-59); Albumin Level 2.7 g/dL (3.4-5.0); Alkaline Phosphatase 54 U/L (46-116); Anion Gap 9 mmol/L (8-16); Aspartate Amino Transferase 145 U/L (15-37); Bilirubin,Total 0.2 mg/dL (0.00-1.00); Blood Urea Nitrogen 3 mg/dL (7-18); Calcium 7.8 mg/dL (8.5-10.1); Carbon Dioxide 26 mmol/L (21-32); Chloride 100 mmol/L (98-108); Estimated CRCL calculation 100 ml/min; Estimated Glomerular Filt Rate > 60; Glucose 90 mg/dL (70-99); Magnesium 1.3 mg/dL (1.8-2.4); Osmolality Calculated 276 mOsm/kg (285-295); Potassium 3.8 mmol/L (3.5-5.1); Sodium 135 mmol/L (136-145)
[2023-04-16 06:30] LABS: Atypical Lymphocytes Present; Band Neutrophils Percent 8 % (0-6); Basophils Percent Manual 0 % (0-1); Creatine Kinase 5067 U/L (26-192); Eosinophils Absolute Manual 0.02 K/mm3 (0.02-0.5); Eosinophils Percent Manual 1 % (1-6); Lymphocytes Absolute Manual 1.13 K/mm3 (1.1-4.5); Lymphocytes Percent Manual 42 % (18-44); Metamyelocytes Percent 1 %; Monocytes Absolute Manual 0.16 K/mm3 (0.1-0.90); Monocytes Percent Manual 6 % (3-9); Neutrophils Absolute Manual 1.35 K/mm3 (1.7-7.2); Neutrophils Percent Manual 42 % (46-73); Platelet Estimate Adequate (Adequate); Total Cells Counted 100
--- NOTE | 2023-04-16 11:03 | PM.IMPN ---
Progress Note: A&P Assessment and Plan (1) Rhabdomyolysis: Qualifiers: Rhabdomyolysis type: non-traumatic Qualified Code(s): M62.82 - Rhabdomyolysis Code(s): M62.82 - Rhabdomyolysis Status: Acute Assessment and Plan: 04/15/23: Body aches and leg tenderness to palpation with CK level over 13,000 on admission down to 12,000 on morning labs with mild elevation liver function tests. this is presumed related to heavy workout and likelihood of an acute viral syndrome though bacteremia is not yet completely ruled out. 04/16/23: Total CK down to 5067 AST 145, ALT 90 (2) Acute renal insufficiency: Code(s): N28.9 - Disorder of kidney and ureter, unspecified Status: Acute Assessment and Plan: 04/15/23: serum creatinine 1.09 on admission down to 0.82 on morning labs GFR greater than 60 both times. 04/16/23: Creatinine 0.85 Continue to trend labs. (3) Febrile leukopenia: Code(s): D72.819 - Decreased white blood cell count, unspecified; R50.81 - Fever presenting with conditions classified elsewhere Status: Acute Assessment and Plan: 04/15/23: white blood cell count 2.6 on admission down to 1.7 with morning labs, bandemia 16% this morning with morning labs this is presumed related to heavy workout and likelihood of an acute viral syndrome though bacteremia is not yet completely ruled out. 04/16/23: WBC 2.7, T max 101.7, 8% bandemia this morining. Continue to trend labs. (4) Rash due to allergy: Code(s): T78.40XA - Allergy, unspecified, initial encounter; R21 - Rash and other nonspecific skin eruption Status: Acute Assessment and Plan: 04/16/23: Rash noted to face, neck, torso, BUE, and BLE. Patient states that it feels like a sun-burn and has been having fever and sore throat. No oral, eye, or palm of hand lesions. No blistering seen. She does complain of a sore throat. She received a 1 time dose of Rocephin IM in the ER, she had localized reaction yesterday. This could be hives vrs erythema multiforme vrs padgett-johnsons syndrome vrs TENS. Asked nursing to keep an eye out for symptoms of SJS. Will check TNF as this is elevated in SJS Will give a one time dose of methylprednisolone 500 mg now, she received her Claritin this morning as she is allergic to benadryl. If rash worsens or starts to look more like SJS we will send patient to higher level of care. Time Spent With Patient Time with patient: 25 - 35 minutes Subjective Date/time seen: 04/16/23 11:03 Interval history: This is a 22 year old female who presented to the hospital on 04/14/23 with complaints of body aches and flu like symptoms and wanted tested for STD and HIV. She reported she had an intense work out prior to presenting. Work up in the hospital included CXR which was negative for any acute cardiopulmonary disease. Labs revealed a WBC of 2.6, Na+ level 132, Chloride 97, Creatinine 1.09, osmolarity 275, Ca+ 8.0, AST 206, ALT 81, [place] [address]. UA was performed and revealed 1+ ketones and was otherwise negative. C. Trachomatis, HIV, and N. Gonorrhoeae was not detected. RPR, Hepatitis panel are pending. Throat culture is negative for group A strep. Blood cultures were obtained and pending. She did have a recent UC from 04/08/23 which resulted as staphylococcus saprophyticus. Patient finished a course of Bactrim. She was started on IVF and given 1 dose of Gentamicin while in the ER. On examination today patient is alert and oriented x3, lying in the bed. Patient denies any nausea, vomiting, diarrhea, abdominal pain, shortness a breath, chest pain. Patient endorses A sore throat, fever, chills, and a sun-burn like rash all over her body. Skin is red and warm to the touch it extends down her face, neck, torso, BUE, BLE. Patient states it feels like a sun burn. I do not see any blisters, lesions on hands, or sores in the mouth. We will give Methylprednisolone 500mg IV x1 now. She was gi
[2023-04-16] MEDS: methylPREDNISolone SOD SUCC 500 MG in DEXTROSE 5% 100 ML 200 MG IVPB (14:35)
[2023-04-17 05:41] LABS: Hemoglobin 11.3 g/dL (12.0-15.0); Mean Corpuscular HGB Conc 32.3 g/dL (32.0-36.0); Mean Corpuscular Hemoglobin 25.5 pg (27.0-31.0); Mean Corpuscular Volume 78.8 fL (78.0-102.0); Mean Platelet Volume 10.5 fl (9.2-11.8); Platelet Count Result 185 K/mm3 (150-420); Red Blood Count 4.44 M/mm3 (4.20-5.40); Red Cell Distribution Width 14.5 % (11.6-14.4); White Blood Count 2.8 K/mm3 (4.8-10.8)
[2023-04-17 05:58] LABS: Band Neutrophils Percent 12 % (0-6); Basophils Percent Manual 0 % (0-1); Eosinophils Percent Manual 0 % (1-6); Lymphocytes Absolute Manual 0.75 K/mm3 (1.1-4.5); Lymphocytes Percent Manual 27 % (18-44); Monocytes Absolute Manual 0.14 K/mm3 (0.1-0.90); Monocytes Percent Manual 5 % (3-9); Neutrophils Percent Manual 56 % (46-73); Total Cells Counted 100
[2023-04-17 05:59] LABS: Platelet Estimate Adequate (Adequate)
[2023-04-17 06:05] LABS: Alanine Aminotransferase 96 U/L (14-59); Albumin Level 2.8 g/dL (3.4-5.0); Alkaline Phosphatase 54 U/L (46-116); Anion Gap 9 mmol/L (8-16); Aspartate Amino Transferase 98 U/L (15-37); Bilirubin,Total 0.3 mg/dL (0.00-1.00); Blood Urea Nitrogen 7 mg/dL (7-18); Calcium 8.6 mg/dL (8.5-10.1); Carbon Dioxide 27 mmol/L (21-32); Chloride 100 mmol/L (98-108); Estimated CRCL calculation 133 ml/min; Estimated Glomerular Filt Rate > 60; Glucose 140 mg/dL (70-99); Magnesium 1.7 mg/dL (1.8-2.4); Osmolality Calculated 282 mOsm/kg (285-295); Potassium 4.1 mmol/L (3.5-5.1); Sodium 136 mmol/L (136-145); Total Protein 6.5 g/dL (6.4-8.2)
[2023-04-17 06:06] LABS: Creatine Kinase 2238 U/L (26-192)
--- NOTE | 2023-04-17 06:56 | PC.NURSE ---
report to eloina bañuelos
[2023-04-17 08:00] VITALS: BP 106/51; PULSE 67; RESP 16; TEMP 36.6; O2SAT 99
[2023-04-17] MEDS: MAGNESIUM SULF 2 GM/WATER 50ML 2 GM/50 ML BAG IVPB (09:39)
[2023-04-17] MEDS: LORATADINE 10 MG TABLET PO (09:47)
--- NOTE | 2023-04-17 10:59 | PM.IMPN ---
Progress Note: A&P Assessment and Plan (1) Rhabdomyolysis: Qualifiers: Rhabdomyolysis type: non-traumatic Qualified Code(s): M62.82 - Rhabdomyolysis Code(s): M62.82 - Rhabdomyolysis Status: Acute Assessment and Plan: 04/15/23: Body aches and leg tenderness to palpation with CK level over 13,000 on admission down to 12,000 on morning labs with mild elevation liver function tests. this is presumed related to heavy workout and likelihood of an acute viral syndrome though bacteremia is not yet completely ruled out. 04/16/23: Total CK down to 5067 AST 145, ALT 90 04/17/23: total CK down to 2238 AST 98, ALT 96 continue to trend (2) Febrile leukopenia: Code(s): D72.819 - Decreased white blood cell count, unspecified; R50.81 - Fever presenting with conditions classified elsewhere Status: Acute Assessment and Plan: 04/15/23: white blood cell count 2.6 on admission down to 1.7 with morning labs, bandemia 16% this morning with morning labs this is presumed related to heavy workout and likelihood of an acute viral syndrome though bacteremia is not yet completely ruled out. 04/16/23: WBC 2.7, T max 101.7, 8% bandemia this morning. Continue to trend labs. 04/17/23: white blood cell count 2.8, T-max 101?. She is afebrile as of right now continue to trend labs and monitor vital signs (3) Rash due to allergy: Code(s): T78.40XA - Allergy, unspecified, initial encounter; R21 - Rash and other nonspecific skin eruption Status: Acute Assessment and Plan: 04/16/23: Rash noted to face, neck, torso, BUE, and BLE. Patient states that it feels like a sun-burn and has been having fever and sore throat. No oral, eye, or palm of hand lesions. No blistering seen. She does complain of a sore throat. She received a 1 time dose of Rocephin IM in the ER, she had localized reaction yesterday. This could be hives vrs erythema multiforme vrs padgett-johnsons syndrome vrs TENS. Asked nursing to keep an eye out for symptoms of SJS. Will check TNF as this is elevated in SJS Will give a one time dose of methylprednisolone 500 mg now, she received her Claritin this morning as she is allergic to benadryl. If rash worsens or starts to look more like SJS we will send patient to higher level of care. 04/17/23: rash is much improved today. She still has redness noted to bilateral cheeks and skin is pink in appearance bilateral upper extremities and bilateral lower extremities. We will continue to monitor today Considering her severe reaction. No oral, eye, palm of the hand lesions seen. No blistering seen. Time Spent With Patient Time with patient: 25 - 35 minutes Subjective Date/time seen: 04/17/23 10:59 Interval history: 04/16/23: This is a 22 year old female who presented to the hospital on 04/14/23 with complaints of body aches and flu like symptoms and wanted tested for STD and HIV. She reported she had an intense work out prior to presenting. Work up in the hospital included CXR which was negative for any acute cardiopulmonary disease. Labs revealed a WBC of 2.6, Na+ level 132, Chloride 97, Creatinine 1.09, osmolarity 275, Ca+ 8.0, AST 206, ALT 81, [place] [address]. UA was performed and revealed 1+ ketones and was otherwise negative. C. Trachomatis, HIV, and N. Gonorrhoeae was not detected. RPR, Hepatitis panel are pending. Throat culture is negative for group A strep. Blood cultures were obtained and pending. She did have a recent UC from 04/08/23 which resulted as staphylococcus saprophyticus. Patient finished a course of Bactrim. She was started on IVF and given 1 dose of Gentamicin while in the ER. On examination today patient is alert and oriented x3, lying in the bed. Patient denies any nausea, vomiting, diarrhea, abdominal pain, shortness a breath, chest pain. Patient endorses A sore throat, fever, chills, and a sun-burn like rash all over her body. Skin is red and warm to
[2023-04-17 16:00] VITALS: BP 103/53; PULSE 74; RESP 16; TEMP 36.1; O2SAT 99
[2023-04-17 16:46] LABS: RPR Screen Non-Reactive (Non-Reactive)
[2023-04-18] VITALS: BP 112/65; PULSE 59; RESP 16; TEMP 36.5; O2SAT 98
--- NOTE | 2023-04-18 05:37 | PC.NURSE ---
Patient is independent in her room. She toilets independently. Patient has slept well tonight. Patient has not needed any PRN medications. Patient's vitals are WNL, with the exception of HR (59).
[2023-04-18 05:44] LABS: Hematocrit 33.1 % (35.0-49.0); Hemoglobin 10.7 g/dL (12.0-15.0); Mean Corpuscular HGB Conc 32.3 g/dL (32.0-36.0); Mean Corpuscular Hemoglobin 25.9 pg (27.0-31.0); Mean Corpuscular Volume 80.1 fL (78.0-102.0); Mean Platelet Volume 10.7 fl (9.2-11.8); Platelet Count Result 183 K/mm3 (150-420); Red Blood Count 4.13 M/mm3 (4.20-5.40); Red Cell Distribution Width 14.6 % (11.6-14.4); White Blood Count 7.1 K/mm3 (4.8-10.8)
[2023-04-18 05:51] LABS: Band Neutrophils Percent 45 % (0-6); Lymphocytes Absolute Manual 0.71 K/mm3 (1.1-4.5); Lymphocytes Percent Manual 10 % (18-44); Total Cells Counted 100
[2023-04-18 05:52] LABS: Monocytes Absolute Manual 0.14 K/mm3 (0.1-0.90); Monocytes Percent Manual 2 % (3-9); Neutrophils Absolute Manual 6.24 K/mm3 (1.7-7.2); Neutrophils Percent Manual 43 % (46-73); Platelet Estimate Adequate (Adequate)
[2023-04-18 06:04] LABS: Alanine Aminotransferase 117 U/L (14-59); Albumin Level 2.8 g/dL (3.4-5.0); Alkaline Phosphatase 49 U/L (46-116); Anion Gap 5 mmol/L (8-16); Aspartate Amino Transferase 89 U/L (15-37); Bilirubin,Total 0.3 mg/dL (0.00-1.00); Blood Urea Nitrogen 12 mg/dL (7-18); Calcium 8.1 mg/dL (8.5-10.1); Carbon Dioxide 31 mmol/L (21-32); Chloride 103 mmol/L (98-108); Creatine Kinase 766 U/L (26-192); Estimated CRCL calculation 115 ml/min; Estimated Glomerular Filt Rate > 60; Glucose 83 mg/dL (70-99); Magnesium 1.9 mg/dL (1.8-2.4); Osmolality Calculated 286 mOsm/kg (285-295); Potassium 3.9 mmol/L (3.5-5.1); Sodium 139 mmol/L (136-145); Total Protein 5.9 g/dL (6.4-8.2)
[2023-04-18 08:00] VITALS: BP 111/56; PULSE 64; RESP 16; TEMP 36.2; O2SAT 98
--- NOTE | 2023-04-18 08:46 | PM.DS ---
DS: Admitting Diagnosis Discharge Date 04/18/2023 Admitting Diagnosis rhabdomyolysis, febrile neutropenia DS: Discharge Diagnosis Discharge Diagnosis (1) Rhabdomyolysis: Qualifiers: Rhabdomyolysis type: non-traumatic Qualified Code(s): M62.82 - Rhabdomyolysis Code(s): M62.82 - Rhabdomyolysis Status: Acute (2) Febrile leukopenia: Code(s): D72.819 - Decreased white blood cell count, unspecified; R50.81 - Fever presenting with conditions classified elsewhere Status: Acute (3) Rash due to allergy: Code(s): T78.40XA - Allergy, unspecified, initial encounter; R21 - Rash and other nonspecific skin eruption Status: Acute DS: Summary Hospital Course Hospital Course: This is a 22 year old female patient who was admitted for rhabdomyolysis and hydrated with IV fluids for several days. Patient also noted to have neutropenia with fever and developed a spreading rash after IM injection of Rocephin given for empiric treatment for possible STI. Full STD panel was pursued and eventually negative including RPR, HIV and Hepatitis panel. Status at Discharge Cognitive/behavioral status at discharge: awake, alert, oriented and pleasant Functional status at discharge: independent ambulation Overall status at discharge: patient is back to baseline Time Spent with Patient Time attestation: Total time spent providing and/or coordinating discharge services: 35 minutes Time spent: Greater than 30 minutes Exam Narrative: General: In no acute distress, well nourished Head: atraumatic, no encephalopathy Eyes: EOMI, PERRLA, sclera clear, no lesions seen ENT: moist mucous membranes, nasal passages clear, no open lesions seen Neck: supple, no JVD, no adenopathy, trachea midline Cardiac: Normal S1 and S2. RRR. No murmur, gallops or friction rubs, peripheral pulses intact. Respiratory: Lungs clear to auscultation, no adventitious lung sounds Gastrointestinal: soft, non-distended, non-tender, normoactive bowel sounds. Extremities: moves all extremities well, no edema, good ROM, strength 5/5 Skin: Rash much improved today, however not completely gone. She does still have red right cheek. no open lesions or blisters noted. Neuro: Alert and oriented x4, cranial nerves intact, no neuro deficits. Psych: normal mood, normal affect, interactive DS: Data Data Completed and Pending Labs on day of discharge: Labs from last 24 hours 04/18/23 04/14/23 05:29 18:31 WBC 7.1 RBC 4.13 L Hgb 10.7 L Hct 33.1 L MCV 80.1 MCH 25.9 L MCHC 32.3 RDW 14.6 H Plt Count 183 MPV 10.7 Immature Gran % (Auto) Not Reportable Neut % (Auto) Not Reportable Lymph % (Auto) Not Reportable Wetzel % (Auto) Not Reportable Eos % (Auto) Not Reportable Baso % (Auto) Not Reportable Lymph # (Auto) Not Reportable Wetzel # (Auto) Not Reportable Eos # (Auto) Not Reportable Baso # (Auto) Not Reportable Abs Immat Gran (auto) Not Reportable Absolute Neuts (auto) Not Reportable Absolute Nucleated RBC Not Reportable Total Counted 100 Neutrophils % (Manual) 43 L Band Neutrophils % 45 H Lymphocytes % (Manual) 10 L Monocytes % (Manual) 2 L Nucleated RBC % Not Reportable Abs Neuts (Manual) 6.24 Abs Lymphs (Manual) 0.71 L Abs Monocytes (Manual) 0.14 Platelet Estimate Adequate Schistocytes Not Reportable Sodium 139 Potassium 3.9 Chloride 103 Carbon Dioxide 31 Anion Gap 5 L BUN 12 Creatinine 0.73 Estim Creat Clear Calc 115 Estimated GFR > 60 Glucose 83 Calculated Osmolality 286 Calcium 8.1 L Magnesium 1.9 Total Bilirubin 0.3 AST 89 H ALT 117 H Alkaline Phosphatase 49 Total Creatine Kinase 766 H Total Protein 5.9 L Albumin 2.8 L RPR Non-reactive Preliminary micro results at discharge 04/15/23 14:38 Blood Culture - Preliminary Blood 04/15/23 14:38 Blood Culture - Preliminary Blood Discharge Plan Dischar
[2023-04-18 09:18] LABS: Hepatitis A Antibody IgM Nonreactive; Hepatitis B Core Antibody Nonreactive (Nonreactive); Hepatitis B Surface Antigen Nonreactive (Nonreactive); Hepatitis C Virus Antibody Nonreactive
--- NOTE | 2023-04-18 09:55 | PC.NURSE ---
Patient and card writer hand went over discharge instructions. Patient voiced understanding. Patient left unit in w/c accompanied by nurse. Patient left hospital grounds in privately owned vehicle. Personal items sent home with patient. Patient forgot her pillow and it is currently at the front end software engineer awaiting pickup.
--- NOTE | 2023-04-20 08:19 | PC.NURSE ---
Discharge call back attempted, no answer
--- NOTE | 2023-04-21 12:25 | PC.NURSE ---
Doing good, did understand dc instructions, no questions or concerns regarding hospital stay
== END 2023-04-18 09:55 | disposition home or self-care (01) | DRG 558 ==
LOC: CHSED 21:12 → CHS2ND 21:43
PROVIDERS: Nurse Practitioner; Admitting Provider Internal Medicine; Emergency Provider Internal Medicine Critical Care Medicine; PCP Clinical Nurse Specialist; Visit Provider Internal Medicine
DX: M62.82 Rhabdomyolysis (principal); N28.9 Disorder of kidney and ureter, unspecified; L27.0 Generalized skin eruption due to drugs and medicaments taken internally; T36.1X5A Adverse effect of cephalosporins and other beta-lactam antibiotics, initial encounter; Z20.822 Contact with and (suspected) exposure to COVID-19; D72.819 Decreased white blood cell count, unspecified; R50.81 Fever presenting with conditions classified elsewhere; F41.9 Anxiety disorder, unspecified; F32.A Depression, unspecified; F17.290 Nicotine dependence, other tobacco product, uncomplicated; Z83.3 Family history of diabetes mellitus; Z80.3 Family history of malignant neoplasm of breast
CPT/HCPCS: 36415; 71046; 80048; 80053; 80074; 80076; 81001; 81025; 82550; 83735; 85025; 86592; 87040; 87491; 87591; 87637; 87806; 96361; 96372; 96374; 99285; A9270; J0696; J2920; J2930; J3475; J7030; J7120

== ENCOUNTER 2023-04-29 11:45 | Outpatient (CLI) | payer OTHER, SELFPAY ==
[2023-04-29 13:11] LABS: Basophils Percent Auto 0.5 % (0.2-1.2); Eosinophils Absolute Auto 0.1 K/mm3 (0-0.3); Eosinophils Percent Auto 0.6 % (0-4.4); Hemoglobin 11.9 g/dL (12.0-15.0); Immature Granulocyte Absolute 0.04 K/mm3 (0.00-0.031); Immature Granulocyte Percent A 0.5 % (0-0.5); Lymphocytes Absolute Auto 2.24 K/mm3 (0.9-3.2); Lymphocytes Percent Auto 26.7 % (18.3-44.2); Mean Corpuscular HGB Conc 32.2 g/dl (32-36); Mean Corpuscular Hemoglobin 26.4 pg (26-34); Mean Corpuscular Volume 82.2 fl (80-100); Mean Platelet Volume 11.2 fl (7.4-10.4); Monocytes Absolute Auto 0.6 K/mm3 (0.1-0.6); Monocytes Percent Auto 7.2 % (2.6-8.5); Neutrophils Absolute Auto 5.4 K/mm3 (1.3-6.7); Neutrophils Percent Auto 64.5 % (45.5-73.1); Platelet Count Result 311 k/mm3 (150-375); Red Cell Distribution Width 15.7 % (11.5-14.5); White Blood Count 8.4 K/mm3 (4.5-10.0)
[2023-04-29 13:49] LABS: Alanine Aminotransferase 45 U/L (6-35); Albumin Level 3.8 g/dL (3.5-5.1); Alkaline Phosphatase 66 U/L (38-126); Anion Gap 6 mmol/L (8-16); Aspartate Amino Transferase 39 U/L (14-36); Bilirubin,Total 1.1 mg/dL (0.2-1.3); Blood Urea Nitrogen 12 mg/dL (7-17); Carbon Dioxide 26 mmol/L (22-30); Chloride 106 mmol/L (98-107); Creatine Kinase 69 U/L (30-135); Estimated Glomerular Filt Rate > 60; Glucose 80 mg/dL (65-110); Potassium 4.2 mmol/L (3.4-5.0); Sodium 138 mmol/L (137-145)
== END 2023-04-29 11:46 | disposition home or self-care (01) ==
LOC: ANHGOSHLAB 11:47
PROVIDERS: PCP Clinical Nurse Specialist; Visit Provider Clinical Nurse Specialist
DX: E07.9 Disorder of thyroid, unspecified (principal); N92.6 Irregular menstruation, unspecified; M62.82 Rhabdomyolysis; D72.819 Decreased white blood cell count, unspecified; R50.81 Fever presenting with conditions classified elsewhere
CPT/HCPCS: 36415; 80053; 82550; 84443; 85025

== ENCOUNTER 2023-07-06 11:33 | Emergency (ER) | payer OTHER, SELFPAY ==
[2023-07-06 11:47] VITALS: BP 105/58; PULSE 81; RESP 16; TEMP 37.2; O2SAT 100
--- NOTE | 2023-07-06 12:10 | ED.URI ---
HPI - URI/Sore Throat General Chief Complaint: Upper Respiratory Infection Stated Complaint: Sinus Infection Symptoms Time Seen by Provider: 07/06/23 12:05 Source: patient, RN notes reviewed and old records reviewed Mode of arrival: ambulatory Limitations: no limitations History of Present Illness HPI Narrative: 22 year old female presents to [facility] with complaints of sinus pressure to right side of her face, sinus congestion with some drainage, sore throat with glands swollen, headache and fatigue which started during the night. Patient reports that she has felt flushed like she has a fever and has taken some Tylenol for her symptoms. MD elicited complaint: sore throat, rhinorrhea, nasal congestion and sinus pain Pertinent past history: seasonal allergies Onset (ago): day(s) (1) Able to tolerate fluids by mouth: Yes Treatments prior to arrival: acetaminophen Related Data Home Medications Medication Instructions Recorded Confirmed norethindrone 1 mg-ethinyl 1 tablet PO DAILY 07/06/23 07/06/23 estradiol 20 mcg (24)-iron 75 mg (4) tablet (Wilmer 24 Fe) Allergies Allergy/AdvReac Type Severity Reaction Status Date / Time ceftriaxone Allergy Severe Redness of Verified 07/06/23 11:51 Skin sumatriptan Allergy Mild Hives Verified 07/06/23 11:51 amoxicillin Allergy Unknown Hives / Verified 07/06/23 11:51 Red Face Penicillins Allergy Unknown Rash Verified 07/06/23 11:51 diphenhydramine Allergy Chest Pain Verified 07/06/23 11:51 [From Benadryl] Review of Systems Review of Systems: CONSTITUTIONAL: Reports malaise, chills, sweats, felt feverish. fatigue EYES: Denies visual changes, redness, or discharge. ENT: Reports rhinorrhea, congestion, sinus pain, no otalgia and positive for sore throat. CARDIOVASCULAR: Denies chest pain, palpitations, or edema. RESPIRATORY: Reports cough.? Denies dyspnea. GASTROINTESTINAL: Denies abdominal pain, nausea, vomiting, diarrhea SKIN: Denies rash or itching. MUSCULOSKELETAL: Denies myalgia. NEUROLOGIC: Reports headache. All systems reviewed & are unremarkable except as noted in HPI and below PMFSH Past Medical History Medical History Allergies Anxiety Arthritis Depression Migraine Thyroid disorder Family History Family History Father Diabetes mellitus Cataract Grandparent Cataract Diabetes mellitus Hypertension Other Breast cancer Social History Social History (Updated 07/07/23 @ 18:08 by Urszula Kay NP) Years smoked: 11 Smoking status: Former smoker Tobacco type: cigarettes and e-cigarettes/vaping Smoking end date: 02/06/24 Alcohol intake: current Alcohol use details: occasionally Substance use: current Substance use type: marijuana Last use: 04/12/2023 Do You Feel Safe in your Home?: Yes Lack of Transportation: No Lack of Food: Never True Current Housing: I Have Housing Concerned About Future Housing: No Difficulty Paying Gas/Electric Bills: No Difficulty Paying for Meds: No Currently Unemployed: No Education: High School Diploma/GED Difficulty w/ Childcare or Family Care: No Gender identity (if verbalized by the patient): Female Spiritual care concerns: Yes ([place]) Comments At time of signature, agree with nursing past medical, surgical, social and family history. There is no relevant family history pertinent to the presenting complaint Exam Narrative: GENERAL: Well-appearing, well-nourished, and in no acute distress. HEAD: Normocephalic EYES: PERRLA, conjunctivae clear ENT: Nares clear, turbinates edematous and erythematous, clear discharge. Mucous membranes moist. TM pearly garcia with dull light reflex bilaterally; no tragal tenderness. Oropharynx erythematous without lesions. Tonsils not present and throat without exudate, no drooling, no hoarsen
== END 2023-07-06 13:12 | disposition home or self-care (01) ==
PROVIDERS: Emergency Provider Registered Nurse; PCP Clinical Nurse Specialist
DX: J06.9 Acute upper respiratory infection, unspecified (principal); Z20.822 Contact with and (suspected) exposure to COVID-19; Z87.891 Personal history of nicotine dependence; M19.90 Unspecified osteoarthritis, unspecified site
CPT/HCPCS: 87081; 87426; 87804; 87880; 99213; G0463

== ENCOUNTER 2023-11-04 10:27 | Emergency (ER) | payer OTHER, SELFPAY ==
--- NOTE | ~2023-11-04 | CT_ITS ---
Non-contrast Head CT History: Headache Technique: Axial non-contrast imaging of the brain was performed. Dose reduction technique was used on this scan by utilizing automated exposure control and iterative reconstruction technique. The dose -length product (DLP) was 529.67 mGy-cm. Findings: There is no evidence of intracranial hemorrhage, mass lesion, or acute infarct. Brain par enchyma appears normal. The ventricles and subarachnoid spaces are normal in size. The calvarium ap pears normal. The visualized paranasal sinuses and mastoid air cells are clear. Impression: No significant abnormality seen. Reviewed, dictated and finalized at location . Impression: No significant abnormality seen.
[2023-11-04 10:28] VITALS: BP 134/84; PULSE 69; RESP 16; TEMP 36.3; O2SAT 100
--- NOTE | 2023-11-04 11:48 | ED.HA ---
HPI - Headache General Chief Complaint: Headache Stated Complaint: headache Time Seen by Provider: 11/04/23 10:31 History of Present Illness HPI Narrative: 22-year-old female presents emergency room for ffa vibration gradual right-sided headache. It takes been present for 3 days. States the pain lasts for several seconds to a couple of minutes. Pain is located over her right orbit and right-sided forehead. Denies any vision or hearing changes. States this is not similar to her migraines. Attempted taking her abortive medication without improvement. Denies nausea or vomiting. Denies dizziness or lightheadedness. Related Data Home Medications Medication Instructions Recorded Confirmed norethindrone 1 mg-ethinyl 1 tablet PO DAILY 07/06/23 07/13/23 estradiol 20 mcg (24)-iron 75 mg (4) tablet (Wilmer 24 Fe) Allergies Allergy/AdvReac Type Severity Reaction Status Date / Time ceftriaxone Allergy Severe Redness of Verified 07/13/23 15:35 Skin sumatriptan Allergy Mild Hives Verified 07/13/23 15:35 amoxicillin Allergy Unknown Hives / Verified 07/13/23 15:35 Red Face Penicillins Allergy Unknown Rash Verified 07/13/23 15:35 diphenhydramine Allergy Chest Pain Verified 07/13/23 15:35 [From Benadryl] PMFSH Past Medical History Medical History Allergies Anxiety Arthritis Depression Migraine Thyroid disorder Family History Family History Father Diabetes mellitus Cataract Grandparent Cataract Diabetes mellitus Hypertension Other Breast cancer Social History Social History (Updated 07/07/23 @ 18:08 by Urszula Kay NP) Years smoked: 11 Smoking status: Former smoker Tobacco type: cigarettes and e-cigarettes/vaping Smoking end date: 02/06/24 Alcohol intake: current Alcohol use details: occasionally Substance use: current Substance use type: marijuana Last use: 04/12/2023 Do You Feel Safe in your Home?: Yes Lack of Transportation: No Lack of Food: Never True Current Housing: I Have Housing Concerned About Future Housing: No Difficulty Paying Gas/Electric Bills: No Difficulty Paying for Meds: No Currently Unemployed: No Education: High School Diploma/GED Difficulty w/ Childcare or Family Care: No Gender identity (if verbalized by the patient): Female Spiritual care concerns: Yes (Jewish) Course Vital Signs Vital signs: Vital Signs Temperature 36.3 C L 11/04/23 10:28 Pulse Rate 69 11/04/23 10:28 Respiratory Rate 16 11/04/23 10:28 Blood Pressure 134/84 11/04/23 10:28 Pulse Oximetry 100 11/04/23 10:28 Oxygen Delivery Room Air 11/04/23 10:28 Temperature 36.9 C 11/04/23 12:25 Pulse Rate 73 11/04/23 12:25 Respiratory Rate 14 11/04/23 12:25 Blood Pressure 129/81 11/04/23 12:25 Pulse Oximetry 100 11/04/23 12:25 Oxygen Delivery Room Air 11/04/23 10:28 MDM - Headache Lab Data 11/04/23 11:59 11/04/23 11:59 Labs: Lab Results 11/04/23 11/04/23 11/04/23 Range/Units 11:59 12:06 12:08 WBC 7.8 (4.5-10.0) K/mm3 RBC 4.56 (4.2-5.4) M/mm3 Hgb 11.7 L (12.0-15.0) g/dL Hct 36.4 L (37.0-47.0) % MCV 79.8 L (80-100) fl MCH 25.7 L (26-34) pg MCHC 32.1 (32-36) g/dl RDW 15.3 H (11.5-14.5) % Plt Count 231 (150-375) k/mm3 MPV 11.1 H (7.4-10.4) fl Immature Gran % (Auto) 0.1 (0-0.5) % Neut % (Auto) 66.7 (45.5-73.1) % Lymph % (Auto) 25.1 (18.3-44.2) % Bee % (Auto) 6.4 (2.6-8.5) % Eos % (Auto) 1.4 (0-4.4) % Baso % (Auto) 0.3 (0.2-1.2) % Lymph # (Auto) 1.95 (0.9-3.2) K/mm3 Bee # (Auto) 0.5 (0.1-0.6) K/mm3 Eos # (Auto) 0.1 (0-0.3) K/mm3 Baso # (Auto) 0.0 (0.0-0.1) K/mm3 Abs Immat Gran (auto) 0.01 (0.00-0.031) K/mm3 Absolute Neuts (auto) 5.2 (1.3-6.7)
[2023-11-04] MEDS: KETOROLAC 30 MG/ML VIAL (*BKC) IV PUSH (11:55)
--- NOTE | 2023-11-04 12:02 | PC.NURSE ---
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 they deny new medications or discontinuing any. states the headache is intermitted and Tylenol and ibuprofen are not taking the pain away. patient would like to decline steroid shot because they had a bad experience with steroids .
[2023-11-04 12:06] LABS: Basophils Percent Auto 0.3 % (0.2-1.2); Eosinophils Absolute Auto 0.1 K/mm3 (0-0.3); Eosinophils Percent Auto 1.4 % (0-4.4); Hematocrit 36.4 % (37.0-47.0); Hemoglobin 11.7 g/dL (12.0-15.0); Immature Granulocyte Absolute 0.01 K/mm3 (0.00-0.031); Immature Granulocyte Percent A 0.1 % (0-0.5); Lymphocytes Absolute Auto 1.95 K/mm3 (0.9-3.2); Lymphocytes Percent Auto 25.1 % (18.3-44.2); Mean Corpuscular HGB Conc 32.1 g/dl (32-36); Mean Corpuscular Hemoglobin 25.7 pg (26-34); Mean Corpuscular Volume 79.8 fl (80-100); Mean Platelet Volume 11.1 fl (7.4-10.4); Monocytes Absolute Auto 0.5 K/mm3 (0.1-0.6); Monocytes Percent Auto 6.4 % (2.6-8.5); Neutrophils Absolute Auto 5.2 K/mm3 (1.3-6.7); Neutrophils Percent Auto 66.7 % (45.5-73.1); Platelet Count Result 231 k/mm3 (150-375); Red Blood Count 4.56 M/mm3 (4.2-5.4); Red Cell Distribution Width 15.3 % (11.5-14.5); White Blood Count 7.8 K/mm3 (4.5-10.0)
[2023-11-04 12:12] LABS: BEDSIDEPREGUCG Negative
[2023-11-04 12:19] LABS: Alanine Aminotransferase 18 U/L (6-35); Albumin Level 4.2 g/dL (3.5-5.1); Alkaline Phosphatase 63 U/L (38-126); Anion Gap 6 mmol/L (4-12); Aspartate Amino Transferase 32 U/L (14-36); Bilirubin,Total 0.3 mg/dL (0.2-1.3); Blood Urea Nitrogen 12 mg/dL (7-17); CRP < 0.5 mg/dL (<1.0); Calcium 8.5 mg/dL (8.4-10.2); Carbon Dioxide 27 mmol/L (22-30); Chloride 103 mmol/L (98-107); Estimated CRCL calculation 118 ml/min; Estimated Glomerular Filt Rate > 60; Glucose 77 mg/dL (65-110); Potassium 4.2 mmol/L (3.4-5.0); Sodium 136 mmol/L (137-145)
[2023-11-04 12:25] VITALS: BP 129/81; PULSE 73; RESP 14; TEMP 36.9; O2SAT 100
[2023-11-04 12:33] LABS: Add Urine Microscopic? NO; Appearance Urine Clear (Clear); Bilirubin Urine Negative (Negative); Blood Urine Negative (Negative); Color Urine Yellow (Yellow); Glucose Urine UA Negative (Negative); Ketones Urine Negative (Negative); Leukocyte Esterase Ur Negative LEU/UL (Negative); Nitrate Urine Negative (Negative); Protein Urine Negative (Negative); Urobilinogen Urine 0.2 mg/dL (<2.0); pH Urine 6.5 (5.0-9.0)
[2023-11-04 12:42] LABS: Influenza A QL RT-PCR Negative (Negative); Influenza B QL RT-PCR Negative (Negative); RSV RNA, RT-PCR Negative (Negative); SARS-CoV-2 RNA PCR Negative (Negative)
[2023-11-04 12:49] LABS: Erythrocyte Sedimentation Rate 9 mm/hr (0-20)
[2023-11-04 13:14] VITALS: BP 131/78; PULSE 71; RESP 16; O2SAT 100
== END 2023-11-04 13:10 | disposition home or self-care (01) ==
PROVIDERS: Emergency Provider Nurse Practitioner Family; PCP Clinical Nurse Specialist
DX: R51.9 Headache, unspecified (principal); Z20.822 Contact with and (suspected) exposure to COVID-19; E07.9 Disorder of thyroid, unspecified; M19.90 Unspecified osteoarthritis, unspecified site; F41.9 Anxiety disorder, unspecified; F32.A Depression, unspecified; Z87.891 Personal history of nicotine dependence; Z79.3 Long term (current) use of hormonal contraceptives
CPT/HCPCS: 36415; 70450; 80053; 81003; 81025; 85025; 85652; 86140; 87637; 96374; 99284; J1885

== ENCOUNTER 2024-01-15 07:53 | Outpatient (CLI) | payer OTHER, SELFPAY ==
--- NOTE | ~2024-01-15 | MR_ITS ---
MRI of the brain Clinical History: Chronic migraine Technique: Axial and sagittal T1-weighted images were acquired. These were followed by axial T2-weigh janneth, diffusion weighted, gradient, and FLAIR images. Following intravenous administration of 7 cc Mul tiHance gadolinium, T1-weighted fat-sat imaging was performed in the axial planes. Findings: No abnormal signal seen in the brain parenchyma. No acute infarct, intracranial hemorrhage, or mass lesion. Ventricles and subarachnoid spaces are unremarkable. Orbits are unremarkable. Paranasal sinuses and m astoid air cells are clear. Major intracranial flow voids are intact. Sagittal midline structures are intact. No abnormal postcontrast enhancement seen. IMPRESSION: Normal exam. Reviewed, dictated and finalized at location M. IMPRESSION: Normal exam.
[2024-01-15 09:19] LABS: Basophils Absolute Auto 0.02 K/mm3 (0.00-0.10); Basophils Percent Auto 0.3 % (0.0-1.0); Eosinophils Absolute Auto 0.07 K/mm3 (0.02-0.50); Hematocrit 34.6 % (35.0-49.0); Hemoglobin 11.3 g/dL (12.0-15.0); Immature Granulocyte Absolute 0.03 K/mm3 (0.00-0.00); Immature Granulocyte Percent A 0.4 % (0.0-0.0); Lymphocytes Absolute Auto 1.66 K/mm3 (1.10-4.50); Lymphocytes Percent Auto 24.4 % (18.0-42.0); Mean Corpuscular HGB Conc 32.7 g/dL (32-36); Mean Corpuscular Volume 76.5 fL (78.0-102.0); Mean Platelet Volume 10.8 fl (9.2-11.8); Monocytes Absolute Auto 0.36 K/mm3 (0.10-0.90); Monocytes Percent Auto 5.3 % (2.0-11.0); Neutrophils Absolute Auto 4.66 K/mm3 (1.70-7.20); Neutrophils Percent Auto 68.6 % (50.0-70.0); Platelet Count Result 233 K/mm3 (150-420); Red Blood Count 4.52 M/mm3 (4.20-5.40); Red Cell Distribution Width 14.6 % (11.6-14.4); White Blood Count 6.8 K/mm3 (4.8-10.8)
[2024-01-15 09:45] LABS: Ferritin 8 ng/mL (8-252); Iron 18 ug/dL (50-170); Percent Iron Saturation 5 % (12-57)
== END 2024-01-15 07:54 | disposition home or self-care (01) ==
LOC: CHSIMG 07:55
PROVIDERS: PCP Clinical Nurse Specialist; Visit Provider Clinical Nurse Specialist
DX: D64.9 Anemia, unspecified (principal); R74.8 Abnormal levels of other serum enzymes; G43.909 Migraine, unspecified, not intractable, without status migrainosus
CPT/HCPCS: 36415; 70553; 82728; 83540; 83550; 85025; A9577

== ENCOUNTER 2024-02-17 13:48 | Outpatient (CLI) | payer OTHER, SELFPAY ==
--- NOTE | ~2024-02-17 | US_ITS ---
EXAMINATION TYPE: US breast LT limited COMPARISON: NONE REASON FOR STUDY: Breast lump TECHNIQUE: Targeted sonographic evaluation of the left breast was performed. INTERPRETATION: No abnormality seen in the area scanned at the 9:00 position left breast. No solid or cystic lesion i dentified. IMPRESSION: No sonographic abnormality seen at the region scanned. BI-RADS CATEGORY: BI-RADS 1: Normal Reviewed, dictated and finalized at location . [address] [place]
== END 2024-02-17 13:49 | disposition home or self-care (01) ==
LOC: MICIMG 13:49
PROVIDERS: PCP Clinical Nurse Specialist; Visit Provider Obstetrics & Gynecology
DX: N63.22 Unspecified lump in the left breast, upper inner quadrant (principal)
CPT/HCPCS: 76642

== ENCOUNTER 2024-05-31 12:38 | Outpatient (CLI) | payer OTHER, SELFPAY ==
[2024-05-31 12:47] LABS: Basophils Absolute Auto 0.02 K/mm3 (0.00-0.10); Basophils Percent Auto 0.3 % (0.0-1.0); Eosinophils Absolute Auto 0.18 K/mm3 (0.02-0.50); Eosinophils Percent Auto 2.4 % (1.0-6.0); Hematocrit 34.6 % (35.0-49.0); Hemoglobin 10.8 g/dL (12.0-15.0); Immature Granulocyte Absolute 0.04 K/mm3 (0.00-0.00); Immature Granulocyte Percent A 0.5 % (0.0-0.0); Lymphocytes Absolute Auto 2.23 K/mm3 (1.10-4.50); Lymphocytes Percent Auto 29.5 % (18.0-42.0); Mean Corpuscular HGB Conc 31.2 g/dL (32-36); Mean Corpuscular Hemoglobin 23.8 pg (27.0-31.0); Mean Corpuscular Volume 76.4 fL (78.0-102.0); Mean Platelet Volume 10.6 fl (9.2-11.8); Monocytes Absolute Auto 0.48 K/mm3 (0.10-0.90); Monocytes Percent Auto 6.3 % (2.0-11.0); Neutrophils Absolute Auto 4.61 K/mm3 (1.70-7.20); Platelet Count Result 261 K/mm3 (150-420); Red Blood Count 4.53 M/mm3 (4.20-5.40); Red Cell Distribution Width 16.4 % (11.6-14.4); White Blood Count 7.6 K/mm3 (4.8-10.8)
--- OUTSIDE RECORDS SUMMARY | 2024-05-31 13:55 | XMS_ITS | Clinical Summary ---
Author Organization [facility] [employer] Address [address] [place] [address] Care Team Providers Care Raw Material Handler Name Role Phone Ana Maria Liz MD Primary Care Provider [phone] Source Comments [facility],non-owned Affiliates and Associated Physician Practices is amultiple site organization consisting of ambulatory clinics and hospital sitesin [place], [place], [place]. This disclosure is being madepursuant to the Care Everywhere program and may not contain all information available regarding this patient. Last updated 17.[facility] Allergies Active Allergy Reactions Criticality Noted Date Comments Amoxicillin Rash Medium 10/25/2015 Rash (1 yr old) Diphenhydramine Other 08/17/2018 Fainting, Chest fuzzy. Sumatriptan Urticaria Medium 01/22/2016 Medications Be aware that medications may not be up to date on this document. Always verify current medications with the patient. No known medications Active Problems Problem Noted Date Diagnosed Date Recurrent tonsillitis 01/28/2016 Allergic rhinoconjunctivitis 11/25/2015 Overview (06/22/2016): 11/25/15 IgE immunocaps + trees and grass Urticaria 10/25/2015 Overview (06/22/2016): 11/25/15 IgE to alpha gal negative CU index, MARGARET, CRP, ESR and AEC all normal Her hive and wheezing episode was likely viral triggered. Assessment & Plan (10/26/2015 2:04 PM CDT): Assessment: 14 yo previously healthy female with acute-onset urticaria intermittently since 10/23 AM. She had been treated with Benadryl, Pepcid and Steroids before presentation to without consistent resolution. Etiology highly likely due to use of hair dye she used on the night of 10/22. Inconsistent resolution of symptoms likely due to continuing exposure to the allergen since it has not yet washed out of her hair. Plan: 1. Solu-Medrol 60 mg injection QD 2. Benadryl injection 50 mg IV q6 for 24 hours 3. Famotidine IV 10 mg BID 4. Zofran injection 4 mg q6 PRN 5. D5 0.5%NS at 125 mL/hr with KCl 20 mEq 6. Albuterol 5 mg q4 PRN 7. Epinephrine 1MG/ML (1:1000) 0.5 g IM w/physician approval 8. Set up outpatient appointment with Allergy/Immunology Assessment & Plan (10/25/2015 10:15 PM CDT): Assessment: 14 yo previously healthy female with acute-onset urticaria. Patient reported shortness of breath and wheezing with most recent episode. Urticaria resolved with benadryl and steroids, though would return after a few hours. Differential includes viral/bacterial infections, exposure to allergens (seasonal, food, dander, etc), drug-mediated. Due to patient's recent tonsil infection, a viral cause is likely. Patient to be admitted for continued benadryl and IV steroids. Plan: - Admit to Pediatrics, Dr. Marino - Benadryl 50mg IV q6hrs - Begin steroid burst - Zofran 4mg IV q4hrs prn nausea/vomiting - Pepcid 10mg BID - Regular diet - Vitals q4hr, I/O's - If increased SOB or desats, obtain CXR and begin albuterol Family History Medical History Relation Name Comments Diabetes - Type 2 Father Hypertension Father Allergies Maternal Aunt Angioedema Maternal Aunt Arthritis - Rheumatoid Maternal Grandmother Seizures Maternal Grandmother Thyroid Disease Maternal Grandmother Thyroid Disease Mother Anesthesia Reaction Neg Hx Asthma Neg Hx Cancer Neg Hx Congenital Heart defect Neg Hx Eczema Neg Hx Immunodeficiency Neg Hx Lupus Neg Hx Relation Name Status Comments Father Maternal Aunt Maternal Grandmother Mother Social History Tobacco Use Types Packs/Day Years Used Date Smoking Tobacco: Former Smokeless Tobacco: Never Sex and Gender Information Value Date Recorded Sex Assigned at Not on file Gender Identity Not on file Sexual Orientation Not on file Last Filed Vital Signs Vital Sign Reading Time Taken Comments Blood Pressure 104/66 08/17/2018 9:04 AM CDT Pulse 73 08/17/2018 9:04 AM CDT Temperature 36.8 C (98.3 F) 08/17/2018 9:04 AM CDT Respiratory Rate 16 08/17/2018 9:04 AM CDT Oxygen Saturation 99% 08/17/2018 9:04 AM CDT Inhaled Oxygen Concentration - - Weight 100.8 kg (222 lb 3.2 oz) 08/17/2018 9:04 AM CDT Height 161.3 cm (5' 3.5 ) 08/17/2018 9:04 AM CDT Body Mass Index 38.74 08/17/2018 9:04 AM CDT Plan of Treatment Health Maintenance Due Date Last Done Comments PAP SMEAR 1998 HIV SCREENING 2013 HPV VACCINE (1 - 3-dose series) 2013 CHLAMYDIA/GONORRHEA SCREENING 2014 HEPATITIS C SCREENING 12/16/2016 DTAP/TDAP/TD VACCINES (1 - Tdap) 2017 HEPATITIS B VACCINE (1 of 3 - 19+ 3-dose series) 2017 COVID-19 VACCINE ( - 2023-2 5 season) 2023 INFLUENZA VACCINE (#1) 2023 DEPRESSION SCREENING 03/29/2024 ZOSTER VACCINE (1 of 2) 2048 HIB VACCINE Aged Out No longer eligi ble based on patient's age to complete this topic MENINGOCOCCAL (Group B) VACCINE Aged Out No longer eligible based on patient's age to complete this topic MENINGOCOCCAL VACCINE Aged Out No areli manjula eligible based on patient's age to complete this topic PNEUMOCOCCAL VACCINE Aged Out No long er eligible based on patient's age to complete this topic Care Teams Raw Material Handler Relationship Specialty Start Date End Date Ana Maria Liz MD PCP - General Pediatrics 10/25/15
--- OUTSIDE RECORDS SUMMARY | 2024-05-31 13:55 | XMS_ITS | Clinical Summary ---
Author Organization [facility] Address [address] [place], [address] [address] Phone Care Team Providers Care Film Reproducer Name Role Phone Ana Maria Branham MD Primary Care Provider [phone] Social History Tobacco Use Types Packs/Day Years Used Date Smoking Tobacco: Never Assessed Comments Unknown Sex and Gender Information Value Date Recorded Sex Assigned at Not on file Legal Sex Female 1:03 PM CDT Gender Identity Not on file Sexual Orientation Not on file Plan of Treatment Health Maintenance Due Date Last Done Comments Hepatitis C Virus (HCV) Screening 1998 Pap Smear 12/22/2019 Influenza Immunization (#1) 2023 01/07/2015 SARS-COV-2 Immunization ( season) 2023 Respiratory Syncytial Virus (RSV) Immunization (Adult) (1 - 1-dose 75+ series) 2073 Hepatitis B Immunization Completed 000, 09/22/1999, 06/19/1999 DTaP/Tdap/Td Immunization Discontinued 2010, 11/29/2003, 04/13/2000, Additional history exists TdaP Immunization Completed 07/11/2010 Human Papillomavirus (HPV) Immunization Completed 01/26/2011, 09/12/2010, 07/11/2010 Meningococcal Immunization (ACWY) Completed 01/07/2015 Pneumococcal Immunization Combined Aged Out No longer eligible based on patient's age to complete this topic Rotavirus Immunization Aged Out No lo nger eligible based on patient's age to complete this topic Insurance MEDICAID REA Care Teams Film Reproducer Relationship Specialty Start Date End Date Ana Maria Branham MD [address] [place] [address] DR GARZON [address] [place] [id number] PCP - General Pediatrics 07/27/17
--- OUTSIDE RECORDS SUMMARY | 2024-05-31 13:56 | XMS_ITS | Referral Summary ---
Author Organization [facility] Address [address] [place] [address] Care Team Providers Care Pillar Worker Name Role Phone Ana Maria Liz MD Primary Care Provider [phone] Source Comments [facility],non-owned Affiliates and Associated Physician Practices is amultiple site organization consisting of ambulatory clinics and hospital sitesin [place], [place], [place] and [place]. This disclosure is being madepursuant to the Care Everywhere program and may not contain all information available regarding this patient. Last updated 17.[facility] Allergies Active Allergy Reactions Criticality Noted Date [...] or desats, obtain CXR and begin albuterol Social History Tobacco Use Types Packs/Day Years [...] Mass Index 38.74 08/17/2018 9:04 AM CDT Functional Status Functional Status Response Date of Assess ment Is person deaf or have serious hearing difficult y? No 01/28/2016 Is person blind or have serious difficulty seein g? No 01/28/2016 Does person have serious dif ficulty walking/climbing stairs? No 01/28/2016 Does person have difficulty dressing/bathing? No 01/28/2016 Does person have difficulty doing errands alone? No 01/28/2016 Cognitive Status Response Date of Assessm ent Does person have difficulty concentrating/remembering/making decisions? No 01/28/2016 Plan of Treatment Not on file Administered Medications Care Teams Pillar Worker Relationship Specialty Start Date End Date Ana Maria Liz MD PCP - General Pediatrics 10/25/15
--- OUTSIDE RECORDS SUMMARY | 2024-05-31 13:56 | XMS_ITS | Clinical Summary ---
Author Organization [facility] Address [address] [place]: Epic Prelude ADT [place] [address] Care Team Providers Care Dude Ranch Manager Name Role Phone Unavailable Primary Care Provider Unavailabl e Medications miSOPROStoL (Cytotec) 200 mcg tablet INSERT 4 TABLETS INTO VAGINA DIRECTED. MAY REPEAT IN 24 TO 48 HOURS. 4 Tablet 1 08/23/2021 5:28 PM CDT 08/23/19 22 Active cholecalcifero l 1,250 mcg (50,000 unit) Capsule Take 1 Capsule (50,000 Units) by mouth every 7 days. 8 Capsule 10/10/2021 3:39 PM CDT 10/10/19 22 Active azithromycin (ZITHROMAX) 250 mg tablet TAKE DIRECTED ON PACKAGE. 6 Tablet 11/17/2021 7:51 PM CDT 11/18/19 22 Active azithromycin (ZITHROMAX) 250 mg tablet Take two tablets by mouth on day 1, then take one tablet by mouth on days 2-5 6 Tablet 02/18/2022 2:18 PM CAREER BASED INTERVENTION COORDINATOR 02/19/20 22 Active metroNIDAZOLE (FLAGYL) 500 mg tablet Take 1 Tablet (500 mg) by mouth 2 times daily with a meal for 7 days. 14 Tablet 04/09/19 24 Active EPINEPHrine (EpiPen 2-Yusuf) 0.3 mg/0.3 mL Auto-Injector Inject contents of 0.3-mg prefilled syringe intramuscularly as directed. Repeat with an additional auto-injector if severe anaphylaxis persists; do not inject into buttocks, digits, hands, or feet. 2 Each 04/18/19 24 Active methylPREDNISo lone (MEDROL DOSPACK) 4 mg Tablets, Dose Pack Take as directed on package 21 Each 07/06/2023 5:44 PM CDT 07/06/19 24 Active Social History Tobacco Use Types Packs/Day Years Used Date Smoking Tobacco: Never Assessed Comments Unknown Sex and Gender Information Value Date Recorded Sex Assigned at Not on file Legal Sex Female 3:27 PM CDT Gender Identity Not on file Sexual Orientation Not on file Plan of Treatment Health Maintenance Due Date Last Done Comments HPV VACCINES (1 - 3-dose series) 2013 DTAP/TDAP/TD VACCINES (1 - Tdap) 2017 HEPATITIS B VACCINES (1 of 3 - 19+ 3-dose series) 2017 CERVICAL CANCER SCREENING 12/22/2019 INFLUENZA VACCINE (#1) 2023 PNEUMOCOCCAL VACCINE 0-49 YEARS Aged Out No longer eligible based on patient's age to complete this topic Insurance RX [employer] (INTERNAL) [facility] [employer] Member Subscriber Plan / Payer (Ef fective 2023-Present) Name:Rain Ramirez Relation to Subscriber:Self Name:Rain Ramirez Subscriber ID:Not on file Payer ID:Not on file Type:RX Commercial Address: [place]
--- OUTSIDE RECORDS SUMMARY | 2024-05-31 13:56 | XMS_ITS | Patient Health Summary ---
Author Organization [facility] Address [address] [place] [address] Care Team Providers Care Casino Cage Manager Name Role Phone Ana Maria Liz MD Primary Care Provider [phone] Note from [facility],non-owned Affiliates and Associated Physician Practices is amultiple site organization consisting of ambulatory clinics and hospital sitesin [place], [place], [place] and [place]. This disclosure is being madepursuant to the Care Everywhere program and may not contain all information available regarding this patient. Last updated 17.[facility] Allergies * Amoxicillin(Rash) -Medium Criticality * Diphenhydramine(Other) * Sumatriptan(Urticaria) -Medium Criticality Medications Be aware that medications may not be up to date on this document. Always verify current medications with the patient. No known medications Active Problems Problem Noted Date Diagnosed Date Recurrent tonsillitis 01/28/2016 Allergic rhinoconjunctivitis 11/25/2015 Urticaria 10/25/2015 Social History Tobacco Use Types Packs/Day Years [...] Mass Index 38.74 08/17/2018 9:04 AM CDT Procedures * SKIN TEST PPD - POINT OF CARE(Performed 08/17/2018) Performed for PPD screening test * GROSS EXAM PATHOLOGY (STL)(Performed 01/28/2016) Performed for Recurrent tonsillitis * TONSILLECTOMY AND ADENOIDECTOMY(Performed 01/28/2016) Performed for Recurrent tonsillitis * HCG URINE QUALITATIVE - POCT (IP) BEAKER(Performed 01/28/2016) * IMMUNOSCORE IGE INTERP(Performed 11/25/2015) Performed for Allergic rhinoconjunctivitis * CBC W AUTO DIFFERENTIAL(Performed 11/25/2015) Performed for Urticaria * CHRONIC URTICARIA PANEL(Performed 11/25/2015) Performed for Urticaria * MARGARET BLOOD SCREEN W/REFLEX TITER(Performed 11/25/2015) Performed for Urticaria * C-REACTIVE PROTEIN(Performed 11/25/2015) Performed for Urticaria * ERYTHROCYTE SEDIMENTATION RATE(Performed 11/25/2015) Performed for Urticaria * ALLERGEN INDIVIDUAL IGE(Performed 11/25/2015) Performed for Allergic rhinoconjunctivitis, Urticaria * ALLERGEN RESPIRATORY PNL REGION 8 ([place])(Performed 11/25/2015) Performed for Allergic rhinoconjunctivitis Results * SKIN TEST PPD - POINT OF CARE (08/17/2018) PPD neg Other MISCELLANEOUS SAMPLE S / Unknown 08/17/2018 Marek Cui APRN-TAXATION CONSULTANT LAB - POINT OF CA RE ORDERABLES * GROSS EXAM PATHOLOGY (STL) (01/28/2016 10:50 AM CDT) Case Report Surgical Pathology Report Case: [id number] Authorizing Provider: Manjit Lei MD Collected: 01/28/2016 10:50 AM Ordering Location: [facility] Received: 01/28/2016 11:35 AM Pathologist: Amish Palencia MD Specimen: Tonsil(s), Bilateral Tonsils. 01/28/2016 3:14 PM CDT [facility] Final Diagnosis GROSS DIAGNOSIS: PALATINE TONSILS. 01/28/2016 3:14 PM T [facility] Clinical History The patient is a 15-year-old girl with recurrent tonsillitis. 01/28/2016 3:14 PM CDT [facility] Gross Description Submitted fresh in one container for gross examination only labeled with the patient s name, Aelainea Ramirez, and b ilateral tonsils, are two egg-shaped, pink-real palatine tonsils measuring 3.2 x 2 x 1.3 cm and 3 x 2 x 1.5 cm weighing 9 grams combined. On cut surface, the tonsil have a cerebriform yellow-real appearance. No sections are taken. (CT/na) 01/28/2016 3:14 PM CDT [facility] Embedded Images 01/28/2016 3:14 PM CDT [facility] Pathology/Cytolo gy SPECIMEN FROM TONSIL / Unknown 01/28/2016 10:50 AM CDT 01/28/2016 11:35 AM CDT Manjit Lei MD LAB - PATHOLOGY/CYTO LOGY ORDERABLES Performing Organization Address City/State/[facility] [[email or web address]] Co de Phone Number [facility] [place] [address] * HCG URINE QUALITATIVE - POCT (IP) GERMAN (01/28/2016 9:25 AM CDT) HCG Qual Urine Negative Negative [facility] POCT TESTING QC Verified Yes Yes [facility] PO CT TESTING Urine URINE / Unknown 01/28/2016 9 :25 AM CDT Manjit Lei MD LAB - POINT OF CARE ORDERABLES [facility] POCT TESTING [address] [facility]. [place], [place] [address] [phone] * IMMUNOSCORE IGE INTERP (11/25/2015 3:17 PM CDT) Immunocap Score See Note 11/30/2015 5:25 AM CDT [facility] ([facility]) Comment: REFERENCE INTERVAL: Allergen, Interpretation Less than 0.10 kU/L......Class 0.....No significant level detected 0.10-0.34 kU/L...........Class 0/1...Clinical relevance undetermined 0.35-0.70 kU/L...........Class 1.....Low 0.71-3.50 kU/L...........Class 2.....Moderate 3.51-17.50 kU/L..........Class 3.....High 17.51-50.00 kU/L.........Class 4.....Very High 50.01-100.00 kU/L........Class 5.....Very High Greater than 100.00kU/L..Class 6.....Very High Allergen results of 0.10-0.34 kU/L are intended for specialist use as the clinical relevance is undetermined. Even though increasing ranges are reflective of increasing concentrations of allergen-specific IgE, these concentrations may not correlate with the degree of clinical response or skin testing results when challenged with a specific allergen. The correlation of allergy laboratory results with clinical history and in vivo reactivity to specific allergens is essential. A negative test may not rule out clinical allergy or even anaphylaxis. Performed by [facility], [address] [place] [address],[place] [address] [email or web address], Pablo Gastelum MD, Lab. Director Blood specimen (specimen) BLOOD SPECIMEN / Unknown Lab Venipuncture / Unknown 11/25/2015 3:17 PM CDT 11/25/2015 3:35 PM CDT Sarthak Hall MD LAB - SEROLOGY ORDER [facility] ([facility]) [address] * CHRONIC URTICARIA PANEL (11/25/2015 3:17 PM CDT) Pathologist [facility] Chronic Urticaria Index 5.9 <10 11/28/2015 5:10 PM CDT [facility] ([facility]) Comment: The CU Index(R) test is the second generation Functional Anti-FceR test. Patients with a CU Index(R) greater than or equal to 10 have basophil reactive factors in their serum which supports an autoimmune basis for disease. *This test was developed and its performance characteristics determined by [facility]. It has not been cleared or approved by the U.S. Food and Drug Administration. Blood specimen (specimen) BLOOD SPECIMEN / Unknown Lab Venipuncture / Unknown 11/25/2015 3:17 PM CDT 11/25/2015 3:35 PM CDT Narrative [facility] ([facility]) - 11/28/2015 5:10 PM CDT Performed at: - [facility] [address] [id number] Motorman/Woman: Eva Granado PhD, Phone: [phone] Sarthak Hall MD LAB - CHEMISTRY ORDE JOHN [facility] ([facility]) [address] [place] [address] * C-REACTIVE PROTEIN (11/25/2015 3:17 PM CDT) [facility] C-Reactive Protein 0.40 <=0.50 mg/dL 11/25/2015 4:00 PM CDT [facility] Blood BLOOD SPECIMEN / Unknown Lab Venipuncture / Unknown 11/25/2015 3:17 PM CDT 11/25/2015 3:35 PM CDT Sarthak Hall MD LAB - CHEMISTRY LOIS LOPEZ [facility] [place] [address] * MARGARET BLOOD SCREEN W/REFLEX TITER (11/25/2015 3:17 PM CDT) MARGARET Negative Negative 11/26/2015 8:02 AM CDT [facility] Blood BLOOD SPECIMEN / Unknown Lab Venipuncture / Unknown 11/25/2015 3:17 PM CDT 11/25/2015 3:35 PM CDT Sarthak Hall MD LAB - CHEMISTRY LOIS LOPEZ Performing Organization Address City/[facility] [[email or web address]] Co de Phone Number [facility] [address] [place] [address] * ALLERGEN INDIVIDUAL IGE (11/25/2015 3:17 PM CDT) Test Name ALPHA GAL 12/04/2015 9:35 PM CDT [facility] Test Result See Scanned Report 12/04/2015 9:35 PM CDT [facility] Blood specimen (specimen) BLOOD SPECIMEN / Unknown Lab Venipuncture / Unknown 11/25/2015 3:17 PM CDT 11/25/2015 3:34 PM CDT Sarthak Hall MD LAB - CHEMISTRY LOIS LOPEZ Performing Organization Address City/[facility]/ZIP Co de Phone Number [facility] [address] [place] [address] * (ABNORMAL) ALLERGEN RESPIRATORY PROFILE ([place]) (11/25/2015 3:17 PM CDT) Pathologist [facility] IgE Total 119 <=537 kU/L 11/30/2015 5:05 AM CDT [facility] ([facility]) Comment: REFERENCE INTERVAL: Immunoglobulin E, Serum Access complete set of age- and/or gender-specific reference intervals for this test in the [facility] Test Directory ([employer]). Allergen Dermatophagoides farinae <0.10 <=0.34 kU/L 11/30/2015 5:05 AM CDT [facility]) Allergen Dermatophagoides pteronyssinus <0.10 <=0.34 kU/L 11/30/2015 5:05 AM CDT [facility]) Allergen Cat Dander <0.10 <=0.34 kU/L 11/30/2015 5:05 AM CDT [facility]) Allergen Dog Dander <0.10 <=0.34 kU/L 11/30/2015 5:05 AM CDT [facility] ([facility]) Allergen Bermuda Grass 8.65(H) <=0.34 kU/L 11/30/2015 5:05 AM T [facility]) Allergen Albert Grass 19.20(H) <=0.34 kU/L 11/30/2015 5:05 AM T [facility] ([facility]) Allergen Cockroach Danish <0.10 <=0.34 kU/L 11/30/2015 5:05 AM CDT [facility]) Allergen Alternaria alternata <0.10 <=0.34 kU/L 11/30/2015 5:05 AM T [facility]) Allergen A fumigatus IgE <0.10 <=0.34 kU/L 11/30/2015 5:05 AM T [facility]) Allergen Hormodendrum <0.10 <=0.34 kU/L 11/30/2015 5:05 AM T [facility]) Allergen P. Notatum <0.10 <=0.34 kU/L 11/30/2015 5:05 AM CDT [facility]) Allergen Blue [place] Maple 0.66(H) <=0.34 kU/L 11/30/2015 5:05 AM CDT [facility]) Allergen Cochise Tree 0.27 <=0.34 kU/L 11/30/2015 5:05 AM CDT [facility]) Allergen Elm 0.52(H) <=0.34 kU/L 11/30/2015 5:05 AM CDT [facility]) Allergen Saguache Tree 0.61(H) <=0.34 kU/L 11/30/2015 5:05 AM CDT [facility] ([facility]) Allergen Mountain Silverdale <0.10 <=0.34 kU/L 11/30/2015 5:05 AM CDT [facility] ([facility]) Allergen White Madison Tree IgE <0.10 <=0.34 kU/L 11/30/2015 5:05 AM CDT [facility] ([facility]) Allergen Fields 3.25(H) <=0.34 kU/L 11/30/2015 5:05 AM CDT [facility] ([facility]) Allergen Pecan Tree 1.20(H) <=0.34 kU/L 11/30/2015 5:05 AM CDT [facility] ([facility]) Allergen Goodrich Tree 0.60(H) <=0.34 kU/L 11/30/2015 5:05 AM CDT [facility] ([facility]) Allergen White Leighton 0.93(H) <=0.34 kU/L 11/30/2015 5:05 AM CDT [facility] ([facility]) Allergen Rough Pigweed <0.10 <=0.34 kU/L 11/30/2015 5:05 AM CDT [facility] ([facility]) Allergen Common Ragweed <0.10 <=0.34 kU/L 11/30/2015 5:05 AM CDT [facility] ([facility]) Allergen Orourke Elder <0.10 <=0.34 kU/L 11/30/2015 5:05 AM CDT [facility] ([facility]) Allergen Tunisian Thistle <0.10 <=0.34 kU/L 11/30/2015 5:05 AM CDT [facility] ([facility]) Allergen Mouse <0.10 <=0.34 kU/L 11/30/2015 5:05 AM CDT [facility] ([facility]) Allergen Mucor racemosus <0.10 <=0.34 kU/L 11/30/2015 5:05 AM CDT [facility] ([facility]) Allergen Peanut <0.10 <=0.34 kU/L 11/30/2015 5:05 AM CDT [facility] ([facility]) Allergen Milk (Cow) <0.10 <=0.34 kU/L 11/30/2015 5:05 AM CDT [facility] ([facility]) Comment: Performed by [employer], [facility] [place] [address] [email or web address], Pablo Gastelum MD, Lab. Director Blood specimen (specimen) BLOOD SPECIMEN / Unknown Lab Venipuncture / Unknown 11/25/2015 3:17 PM CDT 11/25/2015 3:35 PM CDT Sarthak Hall MD LAB - CHEMISTRY ORDE [facility] ([facility]) [address] * (ABNORMAL) SED RATE WESTERGREN (11/25/2015 3:17 PM CDT) Pathologist [facility] Erythrocyte Sedimentation Rate Westergren 16(H) 0 - 12 mm/hr 11/25/2015 4:13 PM CDT [facility] Blood BLOOD SPECIMEN / Unknown Lab Venipuncture / Unknown 11/25/2015 3:17 PM CDT 11/25/2015 3:35 PM CDT Sarthak Hall MD LAB - HEMATOLOGY ORD ERABLES [facility] [address] [place] [address] * (ABNORMAL) CBC W AUTO DIFFERENTIAL (11/25/2015 3:17 PM CDT) WBC 8.3 4.5 - 14.5 x10E9/L 11/25/2015 4:01 PM CDT [facility] WBC Corrected x10E9/L 11/25/2015 4:01 PM T [facility] RBC 5.17(H) 4.10 - 5.10 x10E12/L 11/25/2015 4:01 PM CDT [facility] Hemoglobin 12.6 12.0 - 16.0 gm/dL 11/25/2015 4:01 PM T [facility] Hematocrit 37.6 36.0 - 47.0 % 11/25/2015 4:01 PM T [facility] MCV 72.7(L) 78.0 - 98.0 fl 11/25/2015 4:01 PM CDT [facility] MCH 24.4(L) 25.0 - 35.0 pg 11/25/2015 4:01 PM [facility] MCHC 33.5 31.0 - 37.0 gm/dL 11/25/2015 4:01 PM [facility] Platelet Count 315 100 - 400 x10E9/L 11/25/2015 4:01 PM [facility] RDW-CV 15.2(H) 11.5 - 14.0 % 11/25/2015 4:01 PM [facility] MPV 10.5(H) 6.0 - 9.5 fl 11/25/2015 4:01 PM [facility] Neutrophils % 52.6 24.0 - 66.0 % 11/25/2015 4:01 PM [facility] Lymphocytes % 36.6 22.0 - 61.0 % 11/25/2015 4:01 PM [facility] Monocytes % 7.5 3.0 - 15.0 % 11/25/2015 4:01 PM [facility] Eosinophils % 2.1 0.0 - 10.0 % 11/25/2015 4:01 PM [facility] Basophils % 0.2 % 11/25/2015 4:01 PM [facility] Immature Granulocytes 1.0 % 11/25/2015 4:01 PM [facility] Neutrophil Absolute 4.35 x10E9/L 11/25/2015 4:01 PM [facility] Lymphocytes Absolute 3.02 x10E9/L 11/25/2015 4:01 PM [facility] Monocytes Absolute 0.62 x10E9/L 11/25/2015 4:01 PM [facility] Eosinophils Absolute 0.17 x10E9/L 11/25/2015 4:01 PM [facility] Basophils Absolute 0.02 x10E9/L 11/25/2015 4:01 PM [facility] Immature Granulocytes Absolute 0.08 x10E9/L 11/25/2015 4:01 PM [facility] nRBC Auto 0 /100 WBC 11/25/2015 4:01 PM [facility] Blood BLOOD SPECIMEN / Unknown Lab Venipuncture / Unknown 11/25/2015 3:17 PM CDT 11/25/2015 3:35 PM CDT Sarthak Hall MD LAB - HEMATOLOGY ORD ERABLES [facility] Organization Address City/State/ZIP Co de Phone Number [facility] [address] [place], [place] [id number] Care Teams Casino Cage Manager Relationship Specialty Start Date End Date Ana Maria Liz MD PCP - General Pediatrics 10/25/15
[2024-05-31 22:43] LABS: Alanine Aminotransferase 31 U/L (14-59); Alkaline Phosphatase 71 U/L (46-116); Anion Gap 8 mmol/L (4-12); Aspartate Amino Transferase 26 U/L (15-37); Bilirubin,Total 0.4 mg/dL (0.00-1.00); Blood Urea Nitrogen 21 mg/dL (7-18); Calcium 9.4 mg/dL (8.5-10.1); Carbon Dioxide 28 mmol/L (21-32); Chloride 105 mmol/L (98-108); Estimated Glomerular Filt Rate > 60; Ferritin 8 ng/mL (8-252); Glucose 78 mg/dL (70-99); Iron 30 ug/dL (50-170); Osmolality Calculated 294 mOsm/kg (285-295); Percent Iron Saturation 7 % (12-57); Potassium 4.6 mmol/L (3.5-5.1); Sodium 141 mmol/L (136-145); Total Protein 7.1 g/dL (6.4-8.2)
== END 2024-05-31 12:39 | disposition home or self-care (01) ==
PROVIDERS: PCP Internal Medicine; Visit Provider Clinical Nurse Specialist
DX: R74.8 Abnormal levels of other serum enzymes (principal); D64.9 Anemia, unspecified
CPT/HCPCS: 36415; 80053; 82728; 83540; 83550; 85025

== ENCOUNTER 2024-08-08 16:11 | Outpatient (CLI) | payer OTHER, SELFPAY ==
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
--- OUTSIDE RECORDS SUMMARY | 2024-08-08 16:16 | XMS_ITS | Data Portability ---
Author Organization [facility] Address [address] [place] [address] [place] [address] Care Team Providers Care Accounts Payable Associate Name Role Phone MARILY RODRIGUEZ Primary Care Provider [phone] Assessment No assessment recorded. Plan of Treatment Reminders Order Date Submit Date Provider Last Modified By Organization Details Last Modified Time Details Appointments None recorded. Lab test, urine 2024 025 [email or web address] [address] [place], [place], [address], 5 16:34:19 dhea-sulfat e, serum [address] [facility] (Lab), [address], [place], [address], 4 18:53:41 hormone panel, serum or plasma [address] [facility] (Lab), [address], [place], [address], 4 18:53:42 HbA1c (hemoglobin A1c), blood [address] [facility] (Lab), [address], [place], [address], 4 18:53:40 progesteron e, serum [address] [facility] (Lab), [address], [place], [address], 4 18:53:41 prolactin, serum [address] [facility] (Lab), [address] [facility], [place], [address], 4 18:53:42 shbg (sex hormone-bin ding globulin), serum [address] [facility] (Lab), [address] [facility], [place], [address], 4 18:53:43 testosteron e free/testos terone total, ratio, serum [address] [facility] (Lab), [address] [facility], [place], [address], 4 18:53:43 TSH, serum or plasma [address] [facility] (Lab), [address] [facility], [place], [address], 4 18:53:43 CBC w/ auto diff [address] [facility] (Lab), [address] [place], [address], 4 18:53:40 Referral None recorded. Procedures None recorded. Surgeries None recorded. Imaging US, pelvis [address], [address], [place], [address], 5 22:26:43 US, transvagina l [address], [address], [place], [address], 5 22:26:43 US, transvagina l [address] [place], [place] [address], [place], [address], 18:17:51 Medication Orders None recorded. Patient TargetsNo targets recorded. Patient InstructionsNo instructions recorded. Reason for Referral None Reported. Results Created Date Observation Date Name Description Value Unit Range Abnormal Flag Note LastModifiedBy Organization Detail LastModifiedTime 03/09/20 24 03/09/2024 CBC W/DIF F WBC 8.2 10'3/ uL 3.5-10 .5 Not Available [facility] (Lab) [address], [place], [address], 03/14/2024 18:53:40 03/09/20 24 03/09/2024 CBC W/DIF F RBC 4.72 10'6/ uL (based on docume nted legal sex) 3.80-5 .20 Not Available [facility] (Lab) [address], [place], [address], 03/14/2024 18:53:40 03/09/20 24 03/09/2024 CBC W/DIF F HGB 11.5 g/dL (based on docume nted legal sex) 11.6-1 5.4 low Not Available [facility] (Lab) [address], [place], [address], 03/14/2024 18:53:40 03/09/20 24 03/09/2024 CBC W/DIF F HCT 36.7 % (based on docume nted legal sex) 34.0-4 5.0 Not Available [facility] (Lab) [address] [place], [address], 03/14/2024 18:53:40 03/09/20 24 03/09/2024 CBC W/DIF F MCV 77.8 fL 80.0-9 9.0 low Not Available [facility] (Lab) [address] [place], [address], 03/14/2024 18:53:40 03/09/20 24 03/09/2024 CBC W/DIF F MCH 24.4 pg 27.0-3 4.0 low Not Available [facility] (Lab) [address], [place], [address], 03/14/2024 18:53:40 03/09/20 24 03/09/2024 CBC W/DIF F MCHC 31.3 g/dL 32.0-3 5.5 low Not Available [facility] (Lab) [address], [place], [address], 03/14/2024 18:53:40 03/09/20 24 03/09/2024 CBC W/DIF F RDW 15.6 % 11.0-1 5.0 high Not Available [facility] (Lab) [address], [place], [address], 03/14/2024 18:53:40 03/09/20 24 03/09/2024 CBC W/DIF F plt 273 10'3/ uL 150-40 0 Not Available [facility] (Lab) [address], [place], [address], 03/14/2024 18:53:40 03/09/20 24 03/09/2024 CBC W/DIF F MPV 11.2 fL 8.8-12 .1 Not Available [facility] (Lab) [address], [place], [address], 03/14/2024 18:53:40 03/09/20 24 03/09/2024 CBC W/DIF F NRBC's 0.0 % 0.0 Not Available [facility] (Lab) [address], [place], [address], 03/14/2024 18:53:40 03/09/20 24 03/09/2024 CBC W/DIF F absolute NRBCs 0.0 10'3/ uL no refere nce range establ ished Not Available [facility] (Lab) [address], [place], [address], 03/14/2024 18:53:40 03/09/20 24 03/09/2024 CBC W/DIF F neutrophils 67.2 % 34.0-7 3.0 Not Available [facility] (Lab) [address] [facility], [place], [address], 03/14/2024 18:53:40 03/09/20 24 03/09/2024 CBC W/DIF F lymphocytes 22.1 % 15.0-5 0.0 Not Available [facility] (Lab) [address], [place], [address], 03/14/2024 18:53:40 03/09/20 24 03/09/2024 CBC W/DIF F monocytes 7.3 % 1.0-15 .0 Not Available [facility] (Lab) [address] [place], [address], 03/14/2024 18:53:40 03/09/20 24 03/09/2024 CBC W/DIF F eosinophils 2.8 % 0.0-8. 0 Not Available [facility] (Lab) [address] [facility], [place], [address], 03/14/2024 18:53:40 03/09/20 24 03/09/2024 CBC W/DIF F basophils 0.4 % 0.0-2. 0 Not Available [facility] (Lab) [address] [facility], [place], [address], 03/14/2024 18:53:40 03/09/20 24 03/09/2024 CBC W/DIF F immature granulocytes 0.2 % no define d refere nce range Not Available [facility] (Lab) [address] [place], [address], 03/14/2024 18:53:40 03/09/20 24 03/09/2024 CBC W/DIF F absolute neutrophils 5.5 10'3/ uL 1.5-8. 0 Not Available [facility] (Lab) [address] [facility], [place], [address], 03/14/2024 18:53:40 03/09/20 24 03/09/2024 CBC W/DIF F absolute lymphocytes 1.8 10'3/ uL 1.0-4. 0 Not Available [facility] (Lab) [address] [facility], [place], [address], 03/14/2024 18:53:40 03/09/20 24 03/09/2024 CBC W/DIF F absolute monocytes 0.6 10'3/ uL 0.2-1. 0 Not Available [facility] (Lab) [address] [facility], [place], [address], 03/14/2024 18:53:40 03/09/20 24 03/09/2024 CBC W/DIF F absolute eosinophils 0.2 10'3/ uL 0.0-0. 6 Not Available [facility] (Lab) [address] [facility], [place], [address], 03/14/2024 18:53:40 03/09/20 24 03/09/2024 CBC W/DIF F absolute basophils 0.0 10'3/ uL 0.0-0. 3 Not Available [facility] (Lab) [address] [facility], [place], [address], 03/14/2024 18:53:40 03/09/20 24 03/09/2024 CBC W/DIF F absolute immature granulocytes 0.0 10'3/ uL 0.00-0 .10 03/10 1:26 AM: P indic ates parti al resul ts on a panel have been relea sed. Addit ional resul ts will follo w. 03/10 1:27 AM: This resul t has been final verif ied. No addit ional or osman ed resul ts are expec janneth. Not Available [facility] (Lab) [address] [facility], [place], [address], 03/14/2024 18:53:40 03/09/20 24 03/09/2024 HEMOG LOBIN A1C hemoglobin A1C 5.1 % 4.0-5. 6 The Ameri can Diabe natalie Assoc iatio n recom mends that a prima ry goal of thera py manojul d be a HBA1C of < 7% and that physi cians shoul d reeva luate the treat ment regim en in patie nts with HBA1C value s consi stent ly > 8%. <5.7% Valery l 5.7 - 6.4% Incre ased risk for diabe natalie >=6.5 % Diagn ostic of diabe natalie <7.0% Goal of thera py >8.0% Actio n sugge sted Not Available [facility] (Lab) [address] [facility], [place], [address], 03/14/2024 18:53:40 03/09/20 24 03/09/2024 DHEA SULFA TE DHEA-sulfate 74 ug/dL Femal e Range s Age(y ) Range (ug/d L) 10-15 34-28 0 15-20 65-36 8 20-25 148-4 07 25-35 99-34 0 35-45 61-33 7 45-55 35-25 6 55-65 19-20 5 65-75 9-246 > 75 12-15 4 Not Available [facility] (Lab) [address] [facility], [place], [address], 03/14/2024 18:53:41 03/09/20 24 03/09/2024 PROGE STERO NE progesterone 9.43 NG/mL This assay was perfo rmed using [employer] ratio n reage nts and test kits. Value s obtai ana with other assay metho ds or kits canno t be used inter osman eably . Femal e Proge stero ne Range s: Folli cular phase 0.06- 0.89 ng/mL Ovula tion phase 0.12- 12.00 ng/mL Lutea l phase 1.83- 23.90 ng/mL Postm enopa usal <0.05 -0.13 ng/mL Healt hy Pregn ant Women 1st Trime ster 11.0- 44.30 2nd Trime ster 25.40 -83.3 0 3rd Trime ster 58.70 -214. 00 Not Available [facility] (Lab) [address] [place], [address], 03/14/2024 18:53:41 03/09/20 24 03/09/2024 PROLA CTIN prolactin, total 11.00 NG/mL 4.79-2 3.30 This assay was perfo rmed using [employer] ratio n reage nts and test kits. Value s obtai ana with other assay metho ds or kits canno t be used inter [facility] eacolbert . Not Available [facility] (Lab) [address] [place], [address], 03/14/2024 18:53:42 03/09/20 24 03/09/2024 FSH, LH, ESTRA DIOL estradiol 133.0 pg/mL This assay was perfo rmed using [employer] ratio n reage nts and test kits. Value s obtai ana with other assay metho ds or kits canno t be used inter [facility] eacolbert . Femal e Estra diol Range s: Folli cular phase 12.4- 233 pg/mL Ovula tion phase 41.0- 398 pg/mL Lutea l phase 22.3- 341 pg/mL Postm enopa usal <5-13 8 pg/mL Healt hy Pregn ant Women 1st Trime ster 154-3 243 pg/mL 2nd Trime ster 1561- 72492 pg/mL 3rd Trime ster 8525- >3000 0 pg/mL Not Available [facility] (Lab) [address] [place], [address], 03/14/2024 18:53:42 03/09/20 24 03/09/2024 FSH, LH, ESTRA DIOL FSH 2.2 mIU/m L This assay was perfo rmed using [employer] ratio [employer] reage nts and test kits. Value s obtai ana with other assay metho ds or kits canno t be used inter [facility] eay . Femal es Folli cular : 3.5-1 2.5 mIU/m L Ovula tion: 4.7-2 1.5 mIU/m L Lutea l: 1.7-7 .7 mIU/m L Postm enopa use: 25.8- 134.8 mIU/m L Not Available [facility] (Lab) [address] [facility], [place], [address], 03/14/2024 18:53:42 03/09/20 24 03/09/2024 FSH, LH, ESTRA DIOL LH 4.1 mIU/m L This assay was perfo rmed using [employer] ratio n reage nts and test kits. Value s obtai ana with other assay metho ds or kits canno t be used inter osman eably . Femal es Mid-F ollic ular: 2.4-1 2.6 mIU/m L Mid-C ycle: 14.0- 95.6 mIU/m L Mid-L uteal : 1.0-1 1.4 mIU/m L Postm enopa use: 7.7-5 8.5 mIU/m L Not Available [facility] (Lab) [address] [facility], [place], [address], 03/14/2024 18:53:42 03/09/20 24 03/09/2024 TSH, REFLE X FREE T4 TSH 1.45 uIU/m L 0.30-5 .33 Not Available [facility] (Lab) [address] [place], [address], 03/14/2024 18:53:43 03/09/20 24 03/09/2024 HUMAN SEX HORMO NE HYACINTH NG GLOBU SANDRITA sex hormone binding globulin 32.1 nmole s/L 18.2-1 35.5 Not Available [facility] (Lab) [address] [place], [address], 03/14/2024 18:53:43 03/09/20 24 03/09/2024 TESTO STERO NE, FREE( DIALY SIS) AND TOTAL (LC/M S/MS) testosterone , total 22 NG/dL 2-45 For addit ional [facility]we e refer to http: //sergei rosario.que stdia gnost ics.c om/fa q/ Total Testo stero neLCM SMSFA Q165 (This link is being provi ded for infor matio nal/ educa sarita l purpo ses only. ) This test was devel oped and its jaxon tical perfo rmanc e vasyl cteri stics have been deter mined by [employer] [place], [place]. It has not been clear ed or appro trinidad by the U.S. Food and Drug Admin istra tion. This assay has been valid ated pursu ant to the CLIA regul ation s and is used for clini rafael purpo ses. Not Available [facility] (Lab) [address] [facility], [place], [address], 03/14/2024 18:53:43 03/09/20 24 03/09/2024 TESTO STERO NE, FREE( DIALY SIS) AND TOTAL (LC/M S/MS) testosterone , free 2.8 pg/mL 0.1-6. 4 This test was devel oped and its jaxon tical perfo rmanc e vasyl cteri stics have been deter mined by [employer] [place]. It has not been clear ed or appro trinidad by the U.S. Food and Drug Admin istra tion. This assay has been valid ated pursu ant to the CLIA regul ation s and is used for clini rafael purpo ses. Perfo rming Organ izati on [facility] [employer] n: Site ID: AMD Name: [employer] leslie [facility] Addre ss: [id number] [place], [place] Direc tor: Nichole Crespo MD PhD Not Available [facility] (Lab) [address] [facility], [place], [address], 03/14/2024 18:53:43 05/22/19 25 05/22/2024 pregn darrell test, urine HCG negati ve Not Available [place] [address], [place], [address], 05/22/2024 16:33:46 02/17/20 24 02/17/2024 US, arabella riccil, compl ete No observ ation record ed. [email or web address] [facility] [address], [place], [address], 02/21/2024 16:38:50 05/22/19 25 05/23/2024 US, trans vagin al No observ ation record ed. [email or web address] [place] [address], [place], [address], 05/23/2024 18:17:51 05/25/19 25 05/25/2024 US, pelvi s No observ ation record ed. [email or web address] [place] [address], [place], [address], 05/25/2024 18:39:14 05/25/19 25 05/25/2024 US, trans vagin al No observ ation record ed. [email or web address] [place] [address], [place], [address], 05/25/2024 18:39:27 05/25/19 25 05/25/2024 US, pelvi s No observ ation record ed. [email or web address] [address], [place], [address], 05/30/2024 16:13:38 05/25/19 25 05/25/2024 US, pelvi s No observ ation record ed. [email or web address] [address], [place], [address], 05/30/2024 16:13:38 05/25/19 25 05/25/2024 US, pelvi s No observ ation record ed. [address], [place], [address], 05/30/2024 16:13:39 Result Notes None recorded. Problems Name Problem SNOMED Code Status Onset Date Resolution Date Notes Provider Name and Address Organization Details Recorded Time Normal pregnanc y in multigra alex [id number] 09369 Completed 201807/19/2020 Encounte r for suprvsn of normal pregnanc y, third trimeste r;Record ed Elsewher e: No Locat ion: [facility] S ource: EHR Manager Endoscopy yuki: N Practi ce ID: [email or web address] Perico lable Time: 01:00:00 PM [facility] 14:38:14 Pregnanc y, childbir th and puerperi um finding Completed 201811/27/2020 Encounte r for supervis ion of normal 1st pregnanc y;Record ed Elsewher e: No Locat ion: [facility] S ource: EHR Manager Endoscopy yuki: N Practi ce ID: [email or web address] Perico lable Time: 04:30:00 PM Emily Caruso MD [address], [place], [address], [facility] 10:28:36 Insertio n of intraute rine contrace ptive device Completed 201907/19/2020 Encounte r for insertio n of intraute rine contrace ptive device;R ecorded Elsewher e: No Locat ion: [facility] S ource: EHR Manager Endoscopy yuki: N Practi ce ID: 0001 Perico lable Time: 01:45:00 PM Chasity Goldman richmond [facility] 14:38:10 Pregnanc y test negative [id number] Completed 201911/27/2020 Encounte r for pregnanc y test, result negative ;Recorde d Elsewher e: No Locat ion: [facility] S ource: EHR Manager Endoscopy yuki: N Practi ce ID: 0001 Perico lable Time: 01:45:00 PM Emily Caruso MD [address], [place], [address], [facility] 10:28:34 Antenata l screenin g Completed 201807/19/2020 Encounte r for other specifie d antenata l screenin g;Practi ce ID: 0001 Chasityyaima Goldman richmond, [facility] 14:37:57 Increase d frequenc y of urinatio n [id number] Completed 201807/19/2020 Frequenc y of micturit ion;Prac agustin ID: 0001 Chasityyaima Goldman richmond [facility] 14:38:07 Pregnanc y, childbir th and puerperi um finding Completed 201811/27/2020 Encntr for suprvsn of normal first preg, third trimeste r;Practi ce ID: 0001 Emily Caruso MD [address], [place], [address], [facility] 10:28:41 Lochia finding Completed 201907/19/2020 Encounte r for routine postpart um follow-u p;Practi ce ID: 0001 Chasity fragoso [facility] 14:38:12 Contrace ptive sheath status [id number] Completed 201907/19/2020 Encounte r for routine checking of intraute rine contrace p dev;Prac agustin ID: 0001 Chasity fragoso [facility] 14:38:[address] Concept Completed 201911/27/2020 Encounte r for other contrace ptive manageme nt;Pract ice ID: 0001 Emily Caruso MD [address], [place], [address], [facility] 1 10:28:51 Surveill ance of contrace ption Completed 201711/27/2020 Encounte r for surveill ance of contrace ptives, unspecif ied;Braden rded Elsewher e: No Locat ion: [facility] S ource: EHR Manager Endoscopy yuki: N Priscillati ce ID: 0001 Perico lable Time: 08:30:00 AM Emily Caruso MD [address], [place], [address], [facility] 1 10:28:53 Pregnanc y detectio n examinat ion Completed 201807/19/2020 Encounte r for pregnanc y test, result positive ;Recorde d Elsewher e: No Locat ion: [facility] S ource: EHR Manager Endoscopy yuki: N Practi ce ID: 0001 Perico lable Time: 11:00:00 AM Chasity Susi fragoso, [facility] 14:38:[address] Concept Completed 201711/27/2020 Encntr for ring packer exam (general ) (routine ) w/o abn findings ;Practic e ID: 0001 Emily Caruso MD [address], [place], [address], [facility] 10:28:47 Term pregnanc y delivere d [id number] Completed 201811/27/2020 Encounte r for full-ter m uncompli cated delivery ;Practic e ID: 0001 Emily Caruso MD [address], [place], [address], [facility] 10:28:55 Single live from singleto n pregnanc y [id number] Completed 201811/27/2020 Single live ;Pr actice ID: 0001 Emily Caruso MD [address], [place], [address], [facility] 10:28:44 Gestatio n period, 38 weeks [id number] Completed 201807/19/2020 38 weeks gestatio n of pregnanc y;Practi ce ID: 0001 Chasity fragoso, [facility] 14:38:03 Gestatio n period, 8 weeks [id number] Completed 201807/19/2020 8 weeks gestatio n of pregnanc y;Practi ce ID: 0001 Chasity fragoso, [facility] 14:38:05 Pregnanc y, childbir th and puerperi um finding Completed 201811/27/2020 Encntr for suprvsn of normal first preg, first trimeste r;Practi ce ID: 0001 Emily Caruso MD [address], [place], [address], [facility] 10:28:[address] Concept Completed 201711/27/2020 Encntr for routine child health exam w/o abnormal findings ;Recorde d Elsewher e: No [facility] S ource: EHR Manager Endoscopy yuki: N Practi ce ID: 0001 Perico lable Time: 10:30:00 AM Emily Caruso MD [address], [place], [address], [facility] 10:28:45 Antenata l screenin g for malforma tion Completed 201807/19/2020 Encounte r for antenata l screenin g for malforma tions;Re corded Elsewher e: No [facility] S ource: EHR Manager Endoscopy yuki: N Practi ce ID: 0001 Perico lable Time: 02:45:00 PM Chasity fragoso, [facility] 14:37:59 Body mass index 40+ - severely obese [id number] Completed 202001/23/2021 Cira Lewis [facility], [facility] 09:33:57 Problem Notes None recorded. Procedures Surgical History Date Name Laterality Status Provider Name and Address Organization Details Recorded Time 12/17/19 21 Date of Last Pap Smear completed Myranda Garrett [facility] 07/14/2023 17:53:18 01/29/20 20 IUD Removal completed Homero Hawthorne MD [address], [place], [address], [place] [facility] 01/29/2020 19:15:11 02/03/20 16 Tonsillectomy completed Cira Lewis [facility] 01/23/2021 09:35:46 Imaging Results Imaging Date Name Status LastModified by Organization Details LastModified Time 02/17/2024 US, breast, bilateral, complete completed [facility] [address] [address], [place], [address], 02/21/2024 16:38:50 05/23/2024 US, transvaginal completed ginette [facility] [address], [place], [address], 05/23/2024 18:17:51 05/25/2024 US, pelvis completed [email or web address] [place] [address], [place], [address], 05/25/2024 18:39:14 05/25/2024 US, transvaginal completed [email or web address] Ashraf e [address], [place], [address], 05/25/2024 18:39:27 05/25/2024 US, pelvis completed [email or web address] [address], [place], [address], 05/30/2024 16:13:38 05/25/2024 US, pelvis completed [email or web address] [address], [place], [address], 05/30/2024 16:13:38 05/25/2024 US, pelvis completed [email or web address] [address], [place], [address], 05/30/2024 16:13:39 Procedure Notes None recorded. Medical Equipment None Reported. Allergies Allergen ID Allergen Name Allergen Category Reaction Reaction Severity Criticality Documentation Date Start Date Code Code System Note Provider Name and Address Organization Details Recorded Time 40939 Benadryl medicatio n Not available Not available Not available 07/19/2020 40601 7 RxNorm Chasity Susi [facility] 1 18:18:23 27478 Imitrex medicatio n Not available Not available Not available 07/19/2020 95309 3 RxNorm Chasity Goldman [facility] 1 18:19:08 1825 amoxicill in medicatio n Not available Not available Not available 11/21/2019 723 RxNorm Peggy Gardner [facility] 0 14:14:39 Medications Name Sig Start Date Stop Date Status Note LastModified by Organization Details LastModified Time Mirena 21 mcg/24 hr (up to 8 years) 52 mg intrauter ine device Take by intraute rine route. 01/28 completed Not Available Not Available Not Available azithromy marilyn 250 mg tablet 03/09 completed Not Available Not Available Not Available hydrocodo ne 5 mg-acetam inophen 325 mg tablet 11/20 completed Not Available Not Available Not Available prednison e 20 mg tablet 11/28 completed Not Available Not Available Not Available metronida zole 500 mg tablet Take 1 tablet twice a day by oral route with meal(s) for 7 days. 06/27 completed Not Available Not Available Not Available sulfameth oxazole 800 mg-trimet hoprim 160 mg tablet 06/28 completed Not Available Not Available Not Available meloxicam 7.5 mg tablet 08/08 completed Not Available Not Available Not Available alprazola m 0.25 mg tablet TAKE 1 TABLET AT BEDTIME NEEDED FOR ANXIETY NOT TO BE TAKEN EVERY DAY. DON'T TAKE WHILE DRIVING. active Not Available Not Available No t Available prednisol one acetate 1 % eye drops,[employer] INSTILL 1 DROP 3 TIMES A DAY INTO RIGHT EYE FOR 7 DAYS FOR INFLAMAT ION 06/05 completed Not Available Not Available Not Available levothyro xine 50 mcg tablet 02/11 completed Not Available Not Available Not Available ferrous sulfate 325 mg (65 mg iron) tablet 11/20 completed Not Available Not Available Not Available Loestrin 20 (21) 1 mg-20 mcg tablet Take 1 tablet every day by oral route. 08/08 completed Not Available Not Available Not Available misoprost ol 200 mcg tablet 4 tablets per vagina may repeat in 24-48 hours 09/01 completed Not Available Not Available Not Available fluoxetin e 10 mg capsule 02/11 completed Not Available Not Available Not Available epinephri ne 0.3 mg/0.3 mL injection , auto-inje ctor active Not Available Not Available Not Available ibuprofen 600 mg tablet 11/20 completed Not Available Not Available Not Available methylpre dnisolone 4 mg tablets in a dose pack 07/13 completed Not Available Not Available Not Available fluoxetin e 20 mg capsule TAKE 1 CAP BY MOUTH DAILY active Not Available Not Available No t Available doxycycli ne hyclate 100 mg tablet 08/08 completed Not Available Not Available Not Available methylphe nidate CD 20 mg biphasic 30-70 capsule,e xtended release active Not Available Not Available Not Available Ortho-Cyc hector (28) 0.25 mg-35 mcg tablet take 1 tablet by oral route every day 09/22 completed Prescrib ed Arnolher e: No Locat ion: [facility] M odify By: mario lowry DateTime : 03/30/19 01:41:50 PM Not Available Not Available Not Available iron 09/01 completed Not Available Not Available Not Available ibuprofen 08/08 completed Not Available Not Available Not Available Tylenol 08/08 completed Not Available Not Available Not Available 09/01 completed Not Available Not Available Not Available Wilmer 24 Fe 1 mg-20 mcg (24)/75 mg (4) tablet Take 1 tablet every day by oral route. 03/09 completed Not Available Not Available Not Available Vitals Date Recorded Body height Body mass index (BMI) Body weight Systolic blood pressure Diastolic blood pressure Provider Name and Address Organization Details Last Updated DateTime 02/12/2024 162.56 cm 37.1 kg/m2 34828.95 g 113 mm[Hg] 72 mm[Hg] [place] Swan [facility] 11:08:56 Date Recorded Body height Body mass index (BMI) Body weight Systolic blood pressure Diastolic blood pressure Provider Name and Address Organization Details Last Updated DateTime 03/09/2024 162.56 cm 37.4 kg/m2 73383.14 g 113 mm[Hg] 72 mm[Hg] [id number]|2024-08-08 16:16:00|2024-08-08 16:16:00|XMS_ITS|SARTHAK TRIANA|External Medical Summaries|[id number]|" Clinical Summary Created on: August 08, 2024 Rain Ramirez : 2000 Sex: Female Author Organization [facility] Address [address] Attn: [place]TE[place] Perez [address] Care Team Providers Care Accounts Payable Associate Name Role Phone Unavailable Primary Care Provider Unavailabl e Medications miSOPROStoL (Cytotec) 200 mcg tablet INSERT 4 TABLETS INTO VAGINA DIRECTED. MAY REPEAT IN 24 TO 48 HOURS. 4 Tablet 1 08/23/2021 5:28 PM CDT 08/23/19 22 Active cholecalcifero l 1,250 mcg (50,000 unit) Capsule Take 1 Capsule (50,000 Units) by mouth every 7 days. 8 Capsule 10/10/2021 3:39 PM CDT 10/10/19 Active azithromycin (ZITHROMAX) 250 mg tablet TAKE DIRECTED ON PACKAGE. 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
--- OUTSIDE RECORDS SUMMARY | 2024-08-08 16:16 | XMS_ITS | Clinical Summary ---
Author Organization [facility] Address [address] [place] [address] Care Team Providers Care Fleet Manager/Dispatch Name Role Phone Ana Maria Liz MD Primary Care Provider [phone] Source Comments [facility],non-owned Affiliates and Associated Physician Practices is amultiple site organization consisting of ambulatory clinics and hospital sitesin [place], [place], [place] and [place]. This disclosure is being madepursuant to the Care Everywhere program and may not contain all information available regarding this patient. Last updated 17.[facility] Allergies Active Allergy Reactions Criticality Noted Date Comments Amoxicillin Rash Medium 10/25/2015 Rash (1 yr old) Diphenhydramine Other 08/17/2018 Fainting, Chest fuzzy. Sumatriptan Urticaria Medium 01/22/2016 Medications * Be aware that medications may not be up to date on this document. Alwaysverify current medications with the patient. No known [...] Date Smoking Tobacco: Former Smokeless Tobacco: Never Comments Unknown Sex and Gender Information Value Date Recorded Sex Assigned at Not on file Legal Sex Female 5:24 PM CDT Gender Identity Not on file [...] - 19+ 3-dose series) 2017 COVID-19 VACCINE (1 - 2023-2 5 season) 2023 DEPRESSION SCREENING 03/29/2024 INFLUENZA VACCINE (Season Ended) 2024 ZOSTER VACCINE (1 of 2) 2048 HIB VACCINE Aged Out No longer eligi ble based on patient's age to complete this topic MENINGOCOCCAL (Group B) VACC INE SHARED DECISION-MAKING Aged Out No longer eligibl e based on patient's age to complete this topic MENINGOCOCCAL GROUPS A/C/Y/W VACCINE Aged Out No longer eligible b ased on patient's age to complete this topic PNEUMOCOCCAL VACCINE Aged Out No long er eligible based on patient's age to complete this topic Insurance [facility] Care Address: [address] [place] [phone] Care Teams Fleet Manager/Dispatch Relationship Specialty Start Date End Date Ana Maria Liz MD PCP - General Pediatrics 10/25/15
--- OUTSIDE RECORDS SUMMARY | 2024-08-08 16:16 | XMS_ITS | Clinical Summary ---
Author Organization [facility] Address [address] [facility], [address] [address] Phone Care Team Providers Care Client Services Administrator Name Role Phone Ana Maria Branham MD Primary Care Provider [phone] Social History Tobacco Use Types Packs/Day Years [...] this topic Insurance MEDICAID REA Care Teams Client Services Administrator Relationship Specialty Start Date End Date Ana Maria Branham MD [address] [place] [address] DR GARZON [address] [place] [id number] PCP - General Pediatrics 07/27/17
== END 2024-08-08 16:12 | disposition home or self-care (01) ==
LOC: CHSIMG 16:14
PROVIDERS: PCP Clinical Nurse Specialist; Visit Provider Student in an Organized Health Care Education/Training Program
DX: M54.9 Dorsalgia, unspecified (principal); M85.88 Other specified disorders of bone density and structure, other site; M46.1 Sacroiliitis, not elsewhere classified
CPT/HCPCS: 72128; 72131

== ENCOUNTER 2025-02-02 09:07 | Emergency (ER) | payer BC, SELFPAY ==
--- NOTE | ~2025-02-02 | XR_ITS ---
EXAM/PROCEDURE: XR lumbar spine 2-3V HISTORY: Low back pain x1 month; worsening today. NKI COMPARISON: None available. TECHNIQUE: Lumbar spine x-rays FINDINGS: Mild anterior wedge deformity of L1 noted. No clearly defined fracture or traumatic alignment. 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 The remainder the bones and soft tissues appear within normal limits. IMPRESSION: 1. Mild anterior wedge deformity of L1 of uncertain chronicity. For persisting back pain refractory to conservative therapy, consider MRI of the lumbar spine for optimal sensitivity. 2. 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 Reviewed, dictated and finalized at location A. FRUIT AND NUT FARMING SUPERVISOR
--- NOTE | ~2025-02-02 | CT_ITS ---
EXAM/PROCEDURE: CT lumbar spine wo con HISTORY: L1 wedge/ Low back pain x1 month; worsening today. NKI COMPARISON: Plain films same date TECHNIQUE: Standard technique for lumbar spine CT FINDINGS: Slight anterior wedge deformity seen in the T11-L1 vertebral bodies. The vertebral body which was numbered L1 on the lumbar spine series appears to have short vestigial ribs and it may represent the T12 vertebral body. With this numbering in place, there are only 5 truly lumbarized vertebral bodies. No fracture, traumatic malalignment, or acute/aggressive bony or soft tissue process seen. No large disc herniation or severe spinal canal stenosis identified. IMPRESSION: 1. Mild anterior wedge deformity in the lower thoracic and L1 vertebral bodies probably chronic. 2. Vestigial or short ribs in what is likely the T12 vertebral body. Reviewed, dictated and finalized at location A. ICAL CARE SPECIALIST
--- NOTE | ~2025-02-02 | XR_ITS ---
XR_[id number]_CR Indication: cervical pain x1 month; worsening today. NKI Comparison: None Findings: The vertebral heights are intact. No fracture or subluxation. Moderate loss of disc height C4-5. Soft tissues unremarkable Impression: No acute abnormality. Reviewed, dictated and finalized at location P. T LOADER MACHINE OPERATOR Impression: No acute abnormality.
[2025-02-02 09:07] VITALS: BP 118/79; PULSE 68; RESP 18; TEMP 36.4; O2SAT 99
--- NOTE | 2025-02-02 09:16 | ED.BACK ---
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 No definite injury. No shooting pains down the legs or into the buttocks. No loss or retention of urine. No saddle anesthesia. Some light diarrhea at this time. MD elicited complaint: back pain Pertinent past history: prior back pain Onset (ago): day(s) (One but typically has pain in these areas more so in the lower spine) Timing: constant Severity: moderate Pain scale (0-10): 4 Similar Symptoms Previously: Yes Quality: sharp, aching and spasming Location: lumbar spine (And cervical spine) Radiation: none Exacerbating factors: movement Relieving factors: immobilization Context: while lifting, turning/twisting, bending and other (No definite injury) Associated symptoms: denies other symptoms Treatments prior to arrival: other (None) Work related injury: No Related Data Home Medications ?Medication ?Instructions ?Recorded ?Confirmed ?Last Taken ?Type methylphenidate HCl 20 mg tablet 20 mg PO DAILY 06/20/24 02/02/25 Unknown History Allergies Allergy/AdvReac Type Severity Reaction Status Date / Time ceftriaxone Allergy Severe Redness of Verified 02/02/25 09:12 Skin sumatriptan Allergy Mild Hives Verified 02/02/25 09:12 amoxicillin Allergy Unknown Hives / Verified 02/02/25 09:12 Red Face Penicillins Allergy Unknown Rash Verified 02/02/25 09:12 diphenhydramine (From Allergy Chest Pain Verified 02/02/25 09:12 Benadryl) Review of Systems Review of Systems: All systems reviewed & are unremarkable except as noted in HPI and below Constitutional: Constitutional: Reports no additional constitutional complaints Eyes: Eyes: Reports no additional eye complaints ENT: Reports system reviewed and no additional complaints, except as documented Cardiovascular: Cardiovascular: Reports no additional cardiovascular complaints Respiratory: Respiratory: Reports no additional respiratory complaints Gastrointestinal: Gastrointestinal: Reports no additional gastrointestinal complaints Genitourinary: Genitourinary: Reports no additional female genitourinary complaints Musculoskeletal: Musculoskeletal: Reports no additional musculoskeletal complaints Integumentary/Breasts: Skin/Breast: Reports system reviewed and no additional complaints, except as docu Neurologic: Reports system reviewed and no additional complaints, except as documented Psychiatric: Psychiatric: Reports no additional psychiatric complaints Endocrine: Endocrine: Reports no additional endocrine complaints Hematologic/Lymphatic: Hematologic/Lymphatic: Reports no additional hematologic/lymphatic complaints Allergic/Immunologic: Allergic/Immunologic: Reports no additional allergic/immunologic complaints PMFSH Past Medical History Medical History in first trimester Missed menses Urinary tract infection symptoms Rash due to allergy Febrile leukopenia History of unprotected sex Acute renal insufficiency Rhabdomyolysis Encounter to establish care Difficulty concentrating Allergies Thyroid disorder Term delivered Endometritis following delivery Migraine Anxiety Depression Arthritis False labor Family History Family History Father Diabetes mellitus Cataract Grandparent Cataract Diabetes mellitus Hypertension Other Breast cancer Social History Social History Years smoked: 11 Tobacco type: cigarettes Alcohol intake: current Alcohol use details: occasionally Substance use: current Substance use type: marijuana Last use: 08/03/2024 Do You Feel Safe in your Home?: Yes Lack of Transportation: No Lack of Food: Never True Current Housing: I Have Housing Concerned About Future Housing: No Difficulty Paying Gas/Electric Bills: No Difficulty Paying for Meds: No Currently Unemployed: No Education: High School Diploma/GED Difficulty w/ Childcare or Family Care: No Gender identity (if verbalized by the patient): Female Spiritual care concerns: Yes (Taoism) Exam Const: General: healthy appearing Nutritional Appearance: well nourished Orientation/consciousness: patient oriented x3 HENMT: Head: normal to inspection Ears: external ears normal Face/Nose/Sinus: Normal external nose present Eyes: Conjunctivae: conjunctivae normal Pupils: Equal, round and reactive pupils present EOM: EOMs intact bilaterally Neck: Neck: normal visual inspection, no lymphadenopathy and no meningeal signs Other: Tenderness to palpation of the right paraspinal muscles around C 3-4 region Chest: Chest palpation & inspection: normal inspection of the chest Resp: Effort & Inspection: normal respiratory effort and not labored Auscultation: clear to auscultation bilaterally and no crackles Cardio: Rate: regular rate Rhythm: regular rhythm Heart sounds: no murmurs GI: Inspection: non-distended GI Palp: Yes Soft to palpation and No Tenderness to palpation present (GI) Auscultation: normal bowel sounds : General: Yes bladder normal to palpation Back/Spine/Pelvis: Back: no CVA tenderness Other: Tender right lower back around L4-5 region of the paraspinal muscles to palpation; straight leg test negative bilateral Skin: General skin exam: normal color Rashes: no rashes Wounds: no wounds Neuro: General: patient oriented x3, moves all extremities, no meningeal signs, no focal motor deficits and CN's II-XI intact bilaterally Extrem: General: normal to inspection, no clubbing, cyanosis or edema and no pedal edema Psych: Mental Status: mental status grossly normal Affect: normal affect Attitude: cooperative Course Vital Signs Vital signs: Vital Signs Temperature 36.4 C 02/02/25 09:07 Pulse Rate 68 02/02/25 09:07 Respiratory Rate 18 02/02/25 09:07 Blood Pressure 118/79 02/02/25 09:07 Pulse Oximetry 99 02/02/25 09:07 Oxygen Delivery Room Air 02/02/25 09:07 Temperature 36.4 C 02/02/25 09:07 Pulse Rate 68 02/02/25 09:07 Respiratory Rate 18 02/02/25 09:07 Blood Pressure 118/79 02/02/25 09:07 Pulse Oximetry 99 02/02/25 09:07 Oxygen Delivery Room Air 02/02/25 09:07 MDM - Back Pain/Injury MDM Narrative Medical decision making narrative: Patient is a 24-year-old female with cervical spine and lumbar spine 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 X-rays of the cervical and lumbar spine. Toradol IM. Imaging Data Attestation: I personally reviewed and interpreted this imaging study as follows: Radiologist's impression: Cervical spine x-rays negative for acute process Lumbar spine x-ray shows possible L1 wedge fracture CT scan lumbar spine shows IMPRESSION: 1. Mild anterior wedge deformity in the lower thoracic and L1 vertebral bodies probably chronic. 2. Vestigial or short ribs in what is likely the T12 vertebral body. Discharge Plan Discharge Clinical Impression: Acute cervical myofascial strain, Lumbago Patient Disposition: Home Condition: Stable Instructions: Antibiotic Form, Acute Low Back Pain (ED), Acute Neck Pain (ED) Additional Instructions: Please follow-up with the primary doctor in the next week. If you have continued pain in the cervical spine or the lumbar spine, I suggest MRI planned with her primary doctor. Patient Language: Luxembourger Prescriptions: New cyclobenzaprine 5 mg tablet 5 mg PO BID PRN (Reason: back pain) Qty: 30 0RF Rx Instructions: 1-2 tabs per dose No Action epinephrine 0.3 mg/0.3 mL syringe 0.3 mg subcut ONCE Qty: 2 0RF Rx Instructions: as a single dose methylphenidate HCl 20 mg tablet 20 mg PO DAILY Rx Instructions: Prescribed by Adali Dickey with [facility] hydroxyzine HCl 25 mg tablet 25 mg PO TID Qty: 30 0RF fluoxetine [Prozac] 20 mg capsule 20 mg PO DAILY Qty: 90 1RF Follow-up/Referrals: Susanne Muhammad, SHANIQUA, VEST TAILOR-C [Primary Care Provider, Internal Medicine] Stand Alone Forms: Work/School Release IP Time of Disposition: 10:38
--- NOTE | 2025-02-02 09:32 | PC.NURSE ---
dr lane in room with pt at this time
--- OUTSIDE RECORDS SUMMARY | 2025-02-02 09:45 | XMS_ITS | Patient Health Record ---
Author Organization [facility] Address [address] [place] [address] Care Team Providers Care Optical Goods Drill Operator Name Role Phone [facility] Unavailable [phone] Reason For Referral No Information Social History Tobacco Use: Social History Observation Description Date Details (start date - stop date) Former Smoker NA - NA Tobacco Control (Standard) Question Answer Notes Tobacco use: Former smoker Encounters Encounter Location Date Provider Diagnosis [facility] [address] [place] [address] 07/20/2024 [facility] Assessments Encounter Date Diagnosis (ICD Code) Assessment Notes Treatment Notes Treatment Clinical Notes Section Notes 07/20/2024 Other Follow the treatment plan as indicated by the provider. Take any medications as prescribed. If you have any questions about your prescription, ask the pharmacist. This treatment plan is based on the information you have provided to us today. Incomplete disclosure of your medical history, past treatments, or current medications may affect the effectiveness of this treatment. Call 911 anytime you think you may need emergency care. For example, call if:You have severe trouble breathing.You have a seizure.Call your doctor now or seek immediate medical care if:You have trouble breathing.You have a fever with a stiff neck or a severe headache.You have pain or pressure in your chest or belly.You have a fever or cough that returns after getting better.You feel very sleepy, dizzy, or confused.You are not urinating.You have severe muscle pain.You have severe weakness, or you are unsteady.You have medical conditions that are getting worse.Watch closely for changes in your health, and be sure to contact your doctor if:You do not get better as expected.You are having a problem with your medicine. You participated in a [employer] [facility] request, considered an asynchronous visit where you provide your symptoms and medical history, and a treatment plan is formulated based on your submission. A treatment plan and patient education were provided based on your submission. If symptoms persist or worsen, you should seek in-person care or call 911 immediately for further evaluation. Plan Of Treatment No Information Insurance Providers Payer Name Payer Address Payer Phone Subscriber Number Group Number Insured Name Patient Relationship to Insured Coverage Start Date Coverage End Date [facility] Aetna PPO FFS [address] [place] [id number] Rain Ramirez Self - patient is the insured
--- OUTSIDE RECORDS SUMMARY | 2025-02-02 09:45 | XMS_ITS | Clinical Summary ---
Author Organization [facility] Address [address] [facility], [address] [address] Phone Care Team Providers Care Screen Cutter And Trimmer Name Role Phone Ana Maria Branham MD Primary Care Provider [phone] Social History Tobacco Use Types Packs/Day Years Used Date Smoking Tobacco: Never Assessed Comments Unknown Sex and Gender Information Value Date Recorded Sex Assigned at Not on file Legal Sex Female 1:03 PM CDT Gender Identity Not on file Sexual Orientation Not on file Plan of Treatment Health Maintenance Due Date Last Done Comments Hepatitis C Virus (HCV) Screening 2000 Influenza Immunization (#1) 2024 01/07/2015 SARS-COV-2 Immunization ( season) 2024 Respiratory Syncytial Virus (RSV) Immunization (Adult) (1 [...] age to complete this topic Insurance MEDICAID [place] Care Teams Screen Cutter And Trimmer Relationship Specialty Start Date End Date Ana Maria Branham MD [address] [place] [address] DR GARZON [address] [place] [id number] PCP - General Pediatrics 07/27/17
--- OUTSIDE RECORDS SUMMARY | 2025-02-02 09:45 | XMS_ITS | Clinical Summary ---
Author Organization [facility] Address [address] [place]: Epic Prelude ADT [place] [address] Care Team Providers Care Wall Worker Name Role Phone Unavailable Primary Care Provider [...] days 2-5 6 Tablet 02/18/2022 2:18 PM NET PROGRAMMER 02/19/20 22 Active metroNIDAZOLE (FLAGYL) 500 mg [...] 12/22/2019 PAP SMEAR 12/22/2019 INFLUENZA VACCINE (#1) 2024 Insurance RX MULLEN PLANS (INTERNAL) [facility] RX [employer] RX Member Subscriber Plan / Payer (Ef fective 2023-Present) Name:Rain Ramirez Relation to Subscriber:Self Name:Rain Ramirez Subscriber ID:Not on file Payer ID:Not on file Type:RX Commercial Address: [place]
--- OUTSIDE RECORDS SUMMARY | 2025-02-02 09:45 | XMS_ITS | Clinical Summary ---
Author Organization [facility] Address [address] [place] [address] Care Team Providers Care Licensed Final Expense Agents Name Role Phone Ana Maria Liz MD Primary Care Provider [phone] Source Comments [facility],non-owned Affiliates and Associated Physician Practices is amultiple site organization consisting of ambulatory clinics and hospital sitesin [place], [place], [place] and [place]. This disclosure is being madepursuant to the Care Everywhere program and may not contain all information available regarding this patient. Last updated 17.[facility] Allergies Active Allergy Reactions Criticality Noted [...] 9:04 AM CDT Height 161.3 cm (5' 3.5) 08/17/2018 9:04 AM CDT Body Mass Index 38.74 08/17/2018 9:04 AM CDT Plan of Treatment Health Maintenance Due Date Last Done Comments HIV SCREENING 2013 HPV VACCINE (1 - 3-dose series) 2013 HEPATITIS C SCREENING 12/16/2016 DTAP/TDAP/TD VACCINES (1 - Tdap) 2017 HEPATITIS B VACCINE (1 of 3 - 19+ 3-dose series) 2017 PAP SMEAR 12/22/2019 DEPRESSION SCREENING 03/29/2024 COVID-19 VACCINE (1 - 2023-2 5 season) 2024 INFLUENZA VACCINE (#1) 2024 ZOSTER VACCINE (1 of 2) 2048 [...] patient's age to complete this topic Insurance [facility]NA [facility] Care Teams Licensed Final Expense Agents Relationship Specialty Start Date End Date Ana Maria Liz MD PCP - General Pediatrics 10/25/15
--- OUTSIDE RECORDS SUMMARY | 2025-02-02 09:46 | XMS_ITS | Data Portability ---
Author Organization [facility] Address [address] [place] [address] [place] [address] Care Team Providers Care Shear Scrapman Name Role Phone MARILY RODRIGUEZ Primary Care Provider [phone] Assessment No assessment recorded. Plan of Treatment Reminders Order Date Submit Date Provider Last Modified By Organization Details Last Modified Time Details Appointments None recorded. Lab test, urine 2024 025 [email or web address] [facility], [place], [address], 5 16:34:19 dhea-sulfat e, serum 2023 024 [facility] (Lab), [address], [place], [address], 4 18:53:41 hormone panel, serum or plasma 2023 024 [facility] (Lab), [address], [place], [address], 4 18:53:42 HbA1c (hemoglobin A1c), blood 2023 024 [facility] (Lab), [address], [place], [address], 4 18:53:40 progesteron e, serum 2023 024 [facility] (Lab), [address] [place], [address], 4 18:53:41 prolactin, serum 2023 024 [facility] (Lab), [address], [place], [address], 4 18:53:42 shbg (sex hormone-bin ding globulin), serum 2023 024 [facility] (Lab), [address], [place], [address], 4 18:53:43 testosteron e free/testos terone total, ratio, serum 2023 024 [facility] (Lab), [address], [place], [address], 4 18:53:43 TSH, serum or plasma 2023 024 [facility] (Lab), [address], [place], [address], 4 18:53:43 CBC w/ auto diff 2023 024 [facility] (Lab), [address], [place], [address], 4 18:53:40 Referral None recorded. Procedures None recorded. Surgeries None recorded. Imaging US, pelvis 2024 025 [address], [place], [address], 5 22:26:43 US, transvagina l 2024 025 [address], [place], [address], 5 22:26:43 US, transvagina l 2024 025 [facility], [address], [place], [address], 18:17:51 Medication Orders None recorded. Patient TargetsNo targets recorded. Patient InstructionsNo instructions recorded. Reason for Referral None Reported. Results Created Date Observation Date Name Description Value Unit Range Abnormal Flag Note LastModifiedBy Organization Detail LastModifiedTime 03/09/20 24 03/09/2024 CBC W/DIF F WBC 8.2 10'3/ uL 3.5-10 .5 Not Available [facility] (Lab) [address], [place], [address], 03/14/2024 18:53:40 03/09/20 24 03/09/2024 CBC W/DIF F RBC 4.72 10'6/ uL (based on docume nted legal sex) 3.80-5 .20 Not Available [facility] (Lab) [address], [place], [address], 03/14/2024 18:53:40 03/09/20 24 03/09/2024 CBC W/DIF F HGB 11.5 g/dL (based on docume nted legal sex) 11.6-1 5.4 low Not Available [facility] (Lab) [address], [place], [address], 03/14/2024 18:53:40 03/09/20 24 03/09/2024 CBC W/DIF F HCT 36.7 % (based on docume nted legal sex) 34.0-4 5.0 Not Available [facility] (Lab) [address], [place], [address], 03/14/2024 18:53:40 03/09/20 24 03/09/2024 CBC W/DIF F MCV 77.8 fL 80.0-9 9.0 low Not Available [facility] (Lab) [address], [place], [address], 03/14/2024 18:53:40 03/09/20 24 03/09/2024 CBC W/DIF F MCH 24.4 pg 27.0-3 4.0 low Not Available [facility] (Lab) [address], [place], [address], 03/14/2024 18:53:40 03/09/20 24 03/09/2024 CBC W/DIF F MCHC 31.3 g/dL 32.0-3 5.5 low Not Available [facility] (Lab) [address], [place], [address], 03/14/2024 18:53:40 03/09/20 24 03/09/2024 CBC W/DIF F RDW 15.6 % 11.0-1 5.0 high Not Available [facility] (Lab) [address], [place], [address], 03/14/2024 18:53:40 03/09/20 24 03/09/2024 CBC W/DIF F plt 273 10'3/ uL 150-40 0 Not Available [facility] (Lab) [address], [place], [address], 03/14/2024 18:53:40 03/09/20 24 03/09/2024 CBC W/DIF F MPV 11.2 fL 8.8-12 .1 Not Available [facility] (Lab) [address], [place], [address], 03/14/2024 18:53:40 03/09/20 24 03/09/2024 CBC W/DIF F NRBC's 0.0 % 0.0 Not Available [facility] (Lab) [address], [place], [address], 03/14/2024 18:53:40 03/09/20 24 03/09/2024 CBC W/DIF F absolute NRBCs 0.0 10'3/ uL no refere nce range establ ished Not Available [facility] (Lab) [address], [place], [address], 03/14/2024 18:53:40 03/09/20 24 03/09/2024 CBC W/DIF F neutrophils 67.2 % 34.0-7 3.0 Not Available [facility] (Lab) [address], [place], [address], 03/14/2024 18:53:40 03/09/20 24 03/09/2024 CBC W/DIF F lymphocytes 22.1 % 15.0-5 0.0 Not Available [facility] (Lab) [address], [place], [address], 03/14/2024 18:53:40 03/09/20 24 03/09/2024 CBC W/DIF F monocytes 7.3 % 1.0-15 .0 Not Available [facility] (Lab) [address], [place], [address], 03/14/2024 18:53:40 03/09/20 24 03/09/2024 CBC W/DIF F eosinophils 2.8 % 0.0-8. 0 Not Available [facility] (Lab) [address], [place], [address], 03/14/2024 18:53:40 03/09/20 24 03/09/2024 CBC W/DIF F basophils 0.4 % 0.0-2. 0 Not Available [facility] (Lab) [address], [place], [address], 03/14/2024 18:53:40 03/09/20 24 03/09/2024 CBC W/DIF F immature granulocytes 0.2 % no define d refere nce range Not Available [facility] (Lab) [address] [place], [address], 03/14/2024 18:53:40 03/09/20 24 03/09/2024 CBC W/DIF F absolute neutrophils 5.5 10'3/ uL 1.5-8. 0 Not Available [facility] (Lab) [address], [place], [address], 03/14/2024 18:53:40 03/09/20 24 03/09/2024 CBC W/DIF F absolute lymphocytes 1.8 10'3/ uL 1.0-4. 0 Not Available [facility] (Lab) [address], [place], [address], 03/14/2024 18:53:40 03/09/20 24 03/09/2024 CBC W/DIF F absolute monocytes 0.6 10'3/ uL 0.2-1. 0 Not Available [facility] (Lab) [address], [place], [address], 03/14/2024 18:53:40 03/09/20 24 03/09/2024 CBC W/DIF F absolute eosinophils 0.2 10'3/ uL 0.0-0. 6 Not Available [facility] (Lab) [address], [place], [address], 03/14/2024 18:53:40 03/09/20 24 03/09/2024 CBC W/DIF F absolute basophils 0.0 10'3/ uL 0.0-0. 3 Not Available [facility] (Lab) [address], [place], [address], 03/14/2024 18:53:40 03/09/20 24 03/09/2024 CBC W/DIF [...] resul ts are expec janneth. Not Available [facility] (Lab) [address], [place], [address], 03/14/2024 18:53:40 03/09/20 24 03/09/2024 HEMOG LOBIN A1C hemoglobin A1C 5.1 % 4.0-5. 6 The Ameri can Diabe natalie Assoc iatio n recom mends that a prima ry goal of thera py shoul d be a HBA1C of < 7% and that physi cians shoul d reeva luate the treat ment regim en in patie nts with HBA1C value s consi stent ly > 8%. <5.7% Valery l 5.7 - 6.4% Incre ased risk for diabe natalie >=6.5 % Diagn ostic of diabe natalie <7.0% Goal of thera py >8.0% Actio n sugge sted Not Available [facility] (Lab) [address], [place], [address], 03/14/2024 18:53:40 03/09/20 24 03/09/2024 DHEA SULFA TE DHEA-sulfate 74 ug/dL Femal e Range s Age(y ) Range (ug/d L) 10-15 34-28 0 15-20 65-36 8 20-25 148-4 07 25-35 99-34 0 35-45 61-33 7 45-55 35-25 6 55-65 19-20 5 65-75 9-246 > 75 12-15 4 Not Available [facility] (Lab) [address], [place], [address], 03/14/2024 18:53:41 03/09/20 24 03/09/2024 PROGE STERO NE progesterone 9.43 NG/mL This assay was perfo rmed using [employer] ratio n reage nts and test kits. Value s obtai aan with other assay metho ds or kits [...] Trime ster 58.70 -214. 00 Not Available [facility] (Lab) [address] [place], [address], 03/14/2024 18:53:41 03/09/20 24 03/09/2024 PROLA CTIN prolactin, total 11.00 NG/mL 4.79-2 3.30 This assay was perfo rmed using [employer] ratio n reage nts and test kits. Value s obtai ana with other assay metho ds or kits canno t be used [facility] . Not Available [facility] (Lab) [address] [place], [address], 03/14/2024 18:53:42 03/09/20 24 03/09/2024 FSH, LH, ESTRA DIOL estradiol 133.0 pg/mL This assay was perfo rmed using [employer] ratio n reage nts and test kits. Value s obtai ana with other assay metho ds or kits canno t be used [facility] . Femal e Estra diol Range s: Folli cular phase 12.4- 233 pg/mL Ovula tion phase 41.0- 398 pg/mL Lutea l phase 22.3- 341 pg/mL Postm enopa usal <5-13 8 pg/mL Healt hy Pregn ant Women 1st Trime ster 154-3 243 pg/mL 2nd Trime ster 1561- 99628 pg/mL 3rd Trime ster 8525- >3000 0 pg/mL Not Available [facility] (Lab) [address] [place], [address], 03/14/2024 18:53:42 03/09/20 24 03/09/2024 FSH, LH, ESTRA DIOL FSH 2.2 mIU/m L This assay was perfo rmed using [employer] ratio n reage nts and test kits. Value s obtai ana with other assay metho ds or kits canno t be used [facility] . Femal es Folli cular : 3.5-1 2.5 mIU/m L Ovula tion: 4.7-2 1.5 mIU/m L Lutea l: 1.7-7 .7 mIU/m L Postm enopa use: 25.8- 134.8 mIU/m L Not Available [facility] (Lab) [address], [place], [address], 03/14/2024 18:53:42 03/09/20 24 03/09/2024 FSH, LH, [...] use: 7.7-5 8.5 mIU/m L Not Available [facility] (Lab) [address], [place], [address], 03/14/2024 18:53:42 03/09/20 24 03/09/2024 TSH, REFLE X FREE T4 TSH 1.45 uIU/m L 0.30-5 .33 Not Available [facility] (Lab) [address] [place], [address], 03/14/2024 18:53:43 03/09/20 24 03/09/2024 HUMAN SEX HORMO NE HYACINTH NG GLOBU SANDRITA sex hormone binding globulin 32.1 nmole s/L 18.2-1 35.5 Not Available [facility] (Lab) [address] [place], [address], 03/14/2024 18:53:43 03/09/20 24 03/09/2024 TESTO STERO NE, FREE( DIALY SIS) AND TOTAL (LC/M S/MS) testosterone , total 22 NG/dL 2-45 For addit ional [facility] dawit cuevas e refer to http: //sergei hillque stdia gnost ics.c om/fa q/ Total Testo stero neLCM SMSFA Q165 (This link is being provi ded for infor matching nal/ educa sarita l purpo ses only. ) This test was devel oped and its jaxon tical perfo rmanc e vasyl cteri stics have been deter mined by [employer] [facility] [place], [place]. It has not been clear ed or appro trinidad by the U.S. Food and Drug Admin istra tion. This assay has been valid ated pursu ant to the CLIA regul ation s and is used for clini rafael purpo ses. Not Available [facility] (Lab) [address], [place], [address], 03/14/2024 18:53:43 03/09/20 24 03/09/2024 TESTO STERO NE, FREE( DIALY SIS) AND TOTAL (LC/M S/MS) testosterone , free 2.8 pg/mL 0.1-6. 4 This test was devel oped and its jaxon tical perfo rmanc e vasyl cteri stics have been deter mined by [employer] [facility] [place], [place]. It has not been clear ed or appro trinidad by the U.S. Food and Drug Admin istra tion. This assay has been valid ated pursu ant to the CLIA regul ation s and is used for clini rafael purpo ses. Perfo rming Organ izati on [facility]: Site ID: AMD Name: [employer] leslie lock [facility] [place]: [id number] [facility] [place] [place] Direc tor: Nichole Crespo MD PhD Not Available [facility] (Lab) [address], [place], [address], 03/14/2024 18:53:43 05/22/19 25 05/22/2024 pregn darrell test, urine HCG negati ve Not Available [facility] [address], [place], [address], 05/22/2024 16:33:46 02/17/20 24 02/17/2024 US, wilfredo t, bilat eral, compl ete No observ ation record ed. [email or web address] [facility] [address], [place], [address], 02/21/2024 16:38:50 05/22/19 25 05/23/2024 US, trans vagin al No observ ation record ed. ginette [facility] [address], [place], [address], 05/23/2024 18:17:51 05/25/19 25 05/25/2024 US, pelvi s No observ ation record ed. [email or web address] [facility] [address], [place], [address], 05/25/2024 18:39:14 05/25/19 25 05/25/2024 US, trans vagin al No observ ation record ed. [email or web address] [facility] [address], [place], [address], 05/25/2024 18:39:27 05/25/19 25 05/25/2024 US, pelvi s No observ ation record ed. Aaliyah [address], [place], [address], 05/30/2024 16:13:38 05/25/19 25 05/25/2024 US, pelvi s No observ ation record ed. [email or web address] [address], [place], [address], 05/30/2024 16:13:38 05/25/19 25 05/25/2024 US, pelvi s No observ ation record ed. [email or web address] [address], [place], [address], 05/30/2024 16:13:39 Result Notes None recorded. 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 10:28:[address] Concept Completed 201711/27/2020 Encntr for routine child health exam w/o abnormal findings ;Recorde d Elsewher e: No Locat ion: [facility] S ource: EHR Software Writer yuki: N Priscillati ce ID: 0001 Perico lable Time: 10:30:00 AM Emily Caruso MD [address], [place], [address], [facility] 1 10:28:45 Surveill ance of contrace ption Completed 201711/27/2020 Encounte r for surveill ance of contrace ptives, unspecif ied;Braden rded Elsewher e: No Locat ion: [facility] S ource: EHR Software Writer yuki: N Priscillati ce ID: 0001 Perico lable Time: 08:30:00 AM Emily Caruso MD [address], [place], [address], [facility] 10:28:53 Term pregnanc y delivere d [id number] Completed 201811/27/2020 Encounte r for full-ter m uncompli cated delivery ;Practic e ID: 0001 Emily Caruso MD [address], [place], [address], [facility] 10:28:55 Single live from singleto n pregnanc y [id number] Completed 201811/27/2020 Single live ;Pr actice ID: 0001 Emily Caruso MD [address], [place], [address], [facility] 10:28:44 Gestatio n period, 38 weeks [id number] Completed 201807/19/2020 38 weeks gestatio n of pregnanc y;Practi ce ID: 0001 Chasity fragoso, [facility] 14:38:03 Pregnanc y detectio n examinat ion Completed 201807/19/2020 Encounte r for pregnanc y test, result positive ;Recorde d Elsewher e: No Locat ion: [facility] S ource: EHR Software Writer yuki: N Practi ce ID: 0001 Perico lable Time: 11:00:00 AM Chasity fragoso, [facility] 14:38:16 Gestatio n period, 8 weeks 71012900 Completed 201807/19/2020 8 weeks gestatio n of pregnanc y;Practi ce ID: 0001 Chasity fragoso, [facility] 14:38:05 Antenata l screenin g Completed 201807/19/2020 Encounte r for other specifie d antenata l screenin g;Practi ce ID: 0001 Chasity Goldman null, [facility] 14:37:57 Pregnanc y, childbir th and puerperi um finding Completed 201811/27/2020 Encntr for suprvsn of normal first preg, first trimeste r;Practi ce ID: 0001 Emily Caruso MD [address], [place], [address], [facility] 10:28:39 Increase d frequenc y of urinatio n [id number] Completed 201807/19/2020 Frequenc y of micturit ion;Prac agustin ID: 0001 Chasity fragoso [facility] 14:38:07 Antenata l screenin g for malforma tion Completed 201807/19/2020 Encounte r for antenata l screenin g for malforma tions;Re corded Elsewher e: No Locat ion: [facility] S ource: EHR Software Writer yuki: N Practi ce ID: 0001 Perico lable Time: 02:45:00 PM Chasity fragoso [facility] 14:37:59 Pregnanc y, childbir th and puerperi um finding Completed 201811/27/2020 Encounte r for supervis ion of normal 1st pregnanc y;Record ed Elsewher e: No Locat ion: [facility] S ource: EHR Software Writer yuki: N Practi ce ID: 0001 Perico lable Time: 04:30:00 PM Emily Caruso MD [address], [place], [address], [facility] 10:28:36 Normal pregnanc y in multigra alex [id number] Completed 201807/19/2020 Encounte r for suprvsn of normal pregnanc y, third trimeste r;Record ed Elsewher e: No Locat ion: [facility] S ource: EHR Software Writer yuki: N Practi ce ID: 0001 Perico lable Time: 01:00:00 PM Chasity fragoso [facility] 14:38:14 Pregnanc y, childbir th and puerperi um finding Completed 201811/27/2020 Encntr for suprvsn of normal first preg, third trimeste r;Practi ce ID: 0001 Emily Caruso MD [address], [place], [address], [facility] 10:28:41 Lochia finding Completed 201907/19/2020 Encounte r for routine postpart um follow-u p;Practi ce ID: 0001 Chasity fragoso, [facility] 14:38:12 Insertio n of intraute rine contrace ptive device Completed 201907/19/2020 Encounte r for insertio n of intraute rine contrace ptive device;R ecorded Elsewher e: No Locat ion: [facility] S ource: EHR Software Writer yuki: N Practi ce ID: 0001 Perico lable Time: 01:45:00 PM Chasity fragoso, [facility] 14:38:10 Pregnanc y test negative [id number] Completed 201911/27/2020 Encounte r for pregnanc y test, result negative ;Recorde d Elsewher e: No Locat ion: [facility] S ource: EHR Software Writer yuki: N Practi ce ID: 0001 Perico lable Time: 01:45:00 PM Emily Caruso MD [address], [place], [address], [facility] 10:28:34 Contrace ptive sheath status [id number] Completed 201907/19/2020 Encounte r for routine checking of intraute rine contrace p dev;Prac agustin ID: 0001 Chasity fragoso, [facility] 14:38:[address] Concept Completed 201911/27/2020 Encounte r for other contrace ptive manageme nt;Pract ice ID: 0001 Emily Caruso MD [address], [place], [address], [facility] 10:28:51 Body mass index 40+ - severely obese 100352570 Completed 202001/23/2021 Cira Lewis [facility] 09:33:57 Problem Notes None recorded. Procedures Surgical History Date Name Laterality Status Provider Name and Address Organization Details Recorded Time 12/17/19 21 Date of Last Pap Smear completed Myranda Garrett [facility] 07/14/2023 17:53:18 01/29/20 20 IUD Removal completed Homero Hawthorne MD [address], [place], [address], [facility] 01/29/2020 19:15:11 02/03/20 16 Tonsillectomy completed Cira Lewis [facility] 01/23/2021 09:35:46 Imaging Results None recorded. Procedure Notes None recorded. Medical Equipment None Reported. Allergies Allergen ID Allergen Name Allergen Category Reaction Reaction Severity Criticality Documentation Date Start Date Code Code System Note Provider Name and Address Organization Details Recorded Time 07409 Benadryl medicatio n Not available Not available Not available 07/19/2020 01359 7 RxNorm Chasity Goldman [facility] 18:18:23 48286 Imitrex medicatio n Not available Not available Not available 07/19/2020 78025 3 RxNorm Chasity Goldman [facility] 18:19:08 1825 amoxicill in medicatio n Not available Not available Not available 11/21/2019 723 RxNorm Peggy Gardner [facility] 0 14:14:39 Medications Name Sig Start [...] Not Available Not Available Not Available Loestrin 1/20 (21) 1 mg-20 mcg tablet Take 1 [...] oral route every day 09/22 completed Prescrib rob Lord e: No Locat ion: [facility] M odify By: mario lowry DateTime [...] Body mass index (BMI) Body weight Systolic And Diastolic Provider Name and Address Organization Details Last Updated DateTime 05/22/2024 162.56 cm 38.4 kg/m2 877272.69 g 116/76 mm[Hg] [facility] 05/22/2024 16:32:19 Date Recorded Body height Body mass index (BMI) Body weight Systolic And Diastolic Provider Name and Address Organization Details Last Updated DateTime 06/05/2024 162.56 cm 38.1 kg/m2 881784.51 g 131/74 mm[Hg] Myranda Garrett [facility] 06/05/2024 16:26:24 Date Recorded Body height Body mass index (BMI) Body weight Systolic And Diastolic Provider Name and Address Organization Details Last Updated DateTime 02/12/2024 162.56 cm 37.1 kg/m2 88419.95 g 113/72 mm[Hg] [place]ia Swan [facility] 02/12/2024 11:08:56 Date Recorded Body height Body mass index (BMI) Body weight Systolic And Diastolic Provider Name and Address Organization Details Last Updated DateTime 03/09/2024 162.56 cm 37.4 kg/m2 41554.14 g 113/72 mm[Hg] [facility] 03/09/2024 10:49:17 Social History Question Answer Notes LastModified by Organizat ion Details LastModified Time Tobacco Smoking Status Never Smoker Madisyn Painting [place], [facility] 12/12/2021 16:18:47 Do You Have An Advance Directive? No [email or web address] Information n ot available 01/23/2021 How Many Years Have You Consumed Alcohol? 4 [email or web address] Information not available 05/22/2024 Are You Blind Or Do You Have Difficulty Seeing? No [email or web address] Information n ot available 01/23/2021 What Is Your Level Of Caffeine Consumption? Heavy [email or web address] Information not available 05/22/2024 How Much Tobacco Do You Chew? None [email or web address] Information not available 09/01/2021 In The 14 Days Before Symptom Onset, Have You Had Close Contact With A Laboratory-confirm ed COVID-19 While That Case Was Ill? No [email or web address] Information n ot available 01/23/2021 In The 14 Days Before Symptom Onset, Have You Had Close Contact With A Person Who Is Under Investigation For COVID-19 While That Person Was Ill? No [email or web address] Information not available 01/23/2021 Have You Been To An Area Known To Be High Risk For COVID-19? No [email or web address] Information not available 01/23/2021 Are You Deaf Or Do You Have Serious Difficulty Hearing? No [email or web address] Information not available 01/23/2021 What Type Of Diet Are You Following? REGULAR [email or web address] Information n ot available 01/23/2021 What Is The Highest Grade Or Level Of School You Have Completed Or The Highest Degree You Have Received? [id number] [email or web address] Information not available 01/23/2021 Are There Any Guns Present In Your Home? Yes [email or web address] Information not available 01/23/2021 Have You Ever Been Counseled For Unhealthy Alcohol Use? No [email or web address] Information not available 12/12/2021 Do You Use Protection During Sex? No [email or web address] Information not available 05/22/2024 Do You Use Your Seat Belt Or Car Seat Routinely? Yes [email or web address] Information not available 01/23/2021 Do You Have Smoke And Carbon Monoxide Detectors In Your Home? No Information not available 09/01/2021 How Much Tobacco Do You Smoke? No [email or web address] Information not available 01/23/2021 Do You Use Sunscreen Routinely? No [email or web address] Information not available 06/29/2023 Have You Used IV Drugs? No Information not available 01/23/2021 Do You Have Difficulty Walking Or Climbing Stairs? No [email or web address] Information not available 12/12/2021 Sex: Unknown Functional Status Question Answer Note LastModified by Organizat ion Details LastModified Time Do you use any illicit or recreational drugs? No Information not available 01/23/2021 What is your level of alcohol consumption? Occasional [email or web address] Information not available 05/22/2024 Are you able to walk independently without assistance or assistive devices? YESWOREST [email or web address] Information not available 01/23/2021 Are you able to care for yourself independently? 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 No [email or web address] Information not available 12/12/2021 What is your exercise level? Moderate [email or web address] Information not available 01/23/2021 Mental Status Question Answer Note LastModified by Organization D etails LastModified Time Do you feel stressed (tense, restless, nervous, or anxious, or unable to sleep at night)? [id number] [email or web address] Information not available 01/23/2021 Family History Relationship Description Onset Age of this Age Resolved Age Notes LastModified by Organization Details LastModified Time Mother Hyperlipidem ia [email or web address] Not available 2024 16:08:43 Father Diabetes mellitus [email or web address] Not available 2019 14:15:13 Father Hypertensive disorder [email or web address] Not available 2019 14:15:21 Paternal Grandfather Diabetes mellitus [email or web address] Not available 2019 14:15:13 Paternal Grandfather Malignant neoplasm of colon [email or web address] Not available 08/09 15:37:12 Maternal Aunt Carcinoma in situ of breast Not available 2024 16:08:43 Medical History Condition Response Allergies (Food, seasonal, environmental ) N Other N Breast Cancer N Drug/Latex Allergies/Reactions N Blood Transfusion N Dermatologic Disorders N Lung Disease N Defects or Inherited Disease N Breast Problem N Gestational Diabetes N Hematologic disorders N Anesthesia Complications N History of STI N Deep Vein Thrombosis N Polycystic ovary syndrome N Anxiety Disorder N Autoimmune disease N Arthritis N Infertility N Polyps N Acid Reflux (GERD) N History of abnormal pap N Cancer N Stroke N Varicosities N Neurologic/Epilepsy N Endometriosis N High Cholesterol N Headaches Y Fibromyalgia N Kidney Disease N Heart Problems N Kidney or Bladder Problems N Thyroid Problems Y GI Problems N Eating Disorder N Anemia N Art (IVF or FET) N Psychiatric Illness N Ovarian Cancer N Diabetes N Pulmonary (TB, Asthma) N Hepatitis/Liver Disease N No Past Medical History N Eczema N Urinary Tract Infection N Abuse/Domestic Violence N Asthma N Trauma/Violence N Depression/ depression N Heart Disease N Pre-Eclampsia N Hypertension N Osteoporosis N Thrombophilias N Gynecological History Statement/Question Response Date of Last Mammogram Flow Heavy Date of LMP 05/30/2024 N Was last menstrual period normal Y STIs/STDs N Desired Control Method None On BCP's at Conception? N HPV Vaccine N Duration of Flow (days) 4 Current Control Method Seeking Pre gnancy Age at First Child 18 Are cycles usually normal Y Frequency of Cycle (Q days) 26 Sexually Active? Y Menses Monthly Y Date of DEXA bone scan Age of first menstrual cycle 10 Date of Last Pap Smear 12/16/2020 Sexual Problems? N LMP Definite N Obstetrics History GPAL:G 3 P 1 0 2 1 Type Value Full Term 1 Induced 1 Spontaneous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
[2025-02-02] MEDS: KETOROLAC (*BKC) 60 MG/2 ML VIAL IM (09:55)
--- OUTSIDE RECORDS SUMMARY | 2025-02-02 10:18 | XMS_ITS | Clinical Summary ---
Author Organization [facility] Address [address] [place] [address] Care Team Providers Care Route Vending Machine Servicer Name Role Phone Ana Maria Liz MD Primary Care Provider [phone] Source Comments [facility],non-owned Affiliates and Associated Physician Practices is amultiple site organization consisting of ambulatory clinics and hospital sitesin [place], [place], [place] and [place]. This disclosure is being madepursuant to the Care Everywhere program and may not contain all information available regarding this patient. Last updated 17.[facility] Allergies Active Allergy Reactions Criticality Noted Date [...] patient's age to complete this topic Insurance [facility] [facility] Care Teams Route Vending Machine Servicer Relationship Specialty Start Date End Date Ana Maria Liz MD PCP - General Pediatrics 10/25/15
--- OUTSIDE RECORDS SUMMARY | 2025-02-02 10:18 | XMS_ITS | Clinical Summary ---
Author Organization [facility] Address [address] [facility], [address] [address] Phone Care Team Providers Care Plastics Seasoner Operator Name Role Phone Ana Maria Branham MD Primary Care Provider Social History Tobacco Use Types Packs/Day Years [...] age to complete this topic Insurance MEDICAID [place] Care Teams Plastics Seasoner Operator Relationship Specialty Start Date End Date Ana Maria Branham MD [address] [place] [address] DR GARZON [address] [place] [id number] PCP - General Pediatrics 07/27/17
--- OUTSIDE RECORDS SUMMARY | 2025-02-02 10:18 | XMS_ITS | Clinical Summary ---
Author Organization [facility] Address [address] Estradan: Epic Prelude ADT MATTEO MIKE [address] Care Team Providers Care Header Boss Name Role Phone Unavailable Primary Care Provider [...] days 2-5 6 Tablet 02/18/2022 2:18 PM FAILURE ANALYSIS TECHNICIAN 02/19/20 22 Active metroNIDAZOLE (FLAGYL) 500 mg [...]
[2025-02-02 10:48] VITALS: BP 116/70; PULSE 66; RESP 18; TEMP 36.6; O2SAT 100
== END 2025-02-02 10:54 | disposition home or self-care (01) ==
PROVIDERS: Emergency Provider Emergency Medicine; PCP Clinical Nurse Specialist
DX: S16.1XXA Strain of muscle, fascia and tendon at neck level, initial encounter (principal); M54.50 Low back pain, unspecified; F17.210 Nicotine dependence, cigarettes, uncomplicated; X58.XXXA Exposure to other specified factors, initial encounter
CPT/HCPCS: 72040; 72100; 72131; 96372; 99284; J1885

== ENCOUNTER 2025-03-07 13:21 | Emergency (ER) | payer BC, SELFPAY ==
[2025-03-07 13:25] VITALS: BP 125/70; PULSE 86; RESP 20; TEMP 37.2; O2SAT 98
--- NOTE | 2025-03-07 13:57 | ED.BACK ---
HPI - Back Pain/Injury General Chief Complaint: Back Pain/Injury Stated Complaint: BACK PAIN Time Seen by Provider: 03/07/25 13:56 Source: patient Mode of arrival: ambulatory Limitations: no limitations History of Present Illness HPI Narrative: 24 years old white female, history of chronic lower back pain for the last 16 years with intermittent flare. Patient came to the ED complaining of lower back pain prior to arrival after bending over to lift heavy stuff at work. [place] some stretch at the lower back. 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 History of anxiety / depression and chronic lower back pain Related Data Home Medications ?Medication ?Instructions ?Recorded ?Confirmed ?Last Taken ?Type methylphenidate HCl 20 mg tablet 20 mg PO DAILY 06/20/24 02/02/25 Unknown History Allergies Allergy/AdvReac Type Severity Reaction Status Date / Time ceftriaxone Allergy Severe Redness of Verified 03/07/25 14:50 Skin sumatriptan Allergy Mild Hives Verified 03/07/25 14:50 amoxicillin Allergy Unknown Hives / Verified 03/07/25 14:50 Red Face Penicillins Allergy Unknown Rash Verified 03/07/25 14:50 diphenhydramine (From Allergy Chest Pain Verified 03/07/25 14:50 Benadryl) Review of Systems Review of Systems: All systems reviewed & are unremarkable except as noted in HPI and below PMFSH Past Medical History Medical History in first trimester Missed menses Urinary tract infection symptoms Rash due to allergy Febrile leukopenia History of unprotected sex Acute renal insufficiency Rhabdomyolysis Encounter to establish care Difficulty concentrating Allergies Thyroid disorder Term delivered Endometritis following delivery Migraine Anxiety Depression Arthritis False labor Family History Family History Father Diabetes mellitus Cataract Grandparent Cataract Diabetes mellitus Hypertension Other Breast cancer Social History Social History Years smoked: 11 Smoking status: Former smoker Tobacco type: cigarettes Alcohol intake: current Alcohol use details: occasionally Substance use: current Substance use type: marijuana Last use: 08/03/2024 Lack of Transportation: No Lack of Food: Never True Current Housing: I Have Housing Concerned About Future Housing: No Difficulty Paying Gas/Electric Bills: No Difficulty Paying for Meds: No Currently Unemployed: No Education: High School Diploma/GED Difficulty w/ Childcare or Family Care: No Gender identity (if verbalized by the patient): Female Spiritual care concerns: Yes (Restoration) Exam Narrative: General appearance: Well-developed, well-nourished Skin: Normal color Head: Normocephalic, nontraumatic Eyes: Clear conjunctiva ENT: Oropharynx normal, ears normal, nose normal Neck: Supple, nontender Chest and respiratory: Airway patent, no respiratory distress, no accessory muscle use Heart: Regular rate/rhythm Abdomen: Soft, nontender, no organomegaly, quiet bowel sounds Vascular: Normal peripheral pulses, normal capillary refill. Musculoskeletal: Mild diffuse tenderness across lumbar area, no bruises, no swelling, no rash, slight limited range of motion at the lumbar area Neurologic: Alert and oriented ?3, SUPPORT GROUP MANAGER is normal as tested, no gross motor deficit Course Vital Signs Vital signs: Vital Signs Temperature 37.2 C 03/07/25 13:25 Pulse Rate 86 03/07/25 13:25 Respiratory Rate 20 03/07/25 13:25 Blood Pressure 125/70 03/07/25 13:25 Pulse Oximetry 98 03/07/25 13:25 Oxygen Delivery Room Air 03/07/25 13:25 Temperature 37.2 C 03/07/25 13:25 Pulse Rate 84 03/07/25 14:29 Respiratory Rate 20 03/07/25 14:29 Blood Pressure 120/72 03/07/25 14:29 Pulse Oximetry 98 03/07/25 14:29 Oxygen Delivery Room Air 03/07/25 14:29 MDM Differential Diagnosis Differential Diagnosis: lower back muscular strain /sprain Critical Care Time Critical Care Time Critical Care Time: No Discharge Plan Discharge Clinical Impression: Back pain Patient Disposition: Home Condition: Stable Instructions: Acute Low Back Pain (ED) Additional Instructions: Return if symptoms are worsening , call your family physician for appointment, take Tylenol as as needed for aches and pain, continue home medications. Patient Language: Ukrainian Prescriptions: New naproxen 500 mg tablet 500 mg PO BID PRN (Reason: pain) Qty: 14 0RF cyclobenzaprine 10 mg tablet 10 mg PO TID PRN (Reason: muscle spasm) Qty: 20 0RF No Action cyclobenzaprine 5 mg tablet 5 mg PO BID PRN (Reason: back pain) Qty: 30 0RF Rx Instructions: 1-2 tabs per dose epinephrine 0.3 mg/0.3 mL syringe 0.3 mg subcut ONCE Qty: 2 0RF Rx Instructions: as a single dose methylphenidate HCl 20 mg tablet 20 mg PO DAILY Rx Instructions: Prescribed by Adali Dickey with [facility] hydroxyzine HCl 25 mg tablet 25 mg PO TID Qty: 30 0RF fluoxetine [Prozac] 20 mg capsule 20 mg PO DAILY Qty: 90 1RF Follow-up/Referrals: Susanne Muhammad, EXTENSION SERVICE SPECIALIST IN CHARGE, [facility] RN-C [Primary Care Provider, Internal Medicine] Stand Alone Forms: Work/School Release IP
[2025-03-07 14:29] VITALS: BP 120/72; PULSE 84; RESP 20; O2SAT 98
--- OUTSIDE RECORDS SUMMARY | 2025-03-07 18:34 | XMS_ITS | Clinical Summary ---
Author Organization [facility] Address [address] [facility], [address] [address] Phone Care Team Providers Care Attenuator Name Role Phone Ana Maria Branham MD Primary Care Provider [phone] Social History Tobacco Use Types Packs/Day Years [...] age to complete this topic Insurance MEDICAID [place] Care Teams Attenuator Relationship Specialty Start Date End Date Ana Maria Branham MD [address] [place] [address] DR GARZON [address] [place] [id number] PCP - General Pediatrics 07/27/17
--- OUTSIDE RECORDS SUMMARY | 2025-03-07 18:35 | XMS_ITS | Clinical Summary ---
Author Organization [facility] Address [address] Estradan: Epic Prelude ADT MATTEO MIKE [address] Care Team Providers Care Diploma Pharmacy Technician Name Role Phone Unavailable Primary Care Provider [...] days 2-5 6 Tablet 02/18/2022 2:18 PM COOPER APPRENTICE 02/19/20 22 Active metroNIDAZOLE (FLAGYL) 500 mg [...]
--- OUTSIDE RECORDS SUMMARY | 2025-03-07 18:35 | XMS_ITS | Data Portability ---
Author Organization [facility] Address [address] [place] [address] [address] Care Team Providers Care Agricultural Sales Representative Name Role Phone MARILY RODRIGUEZ Primary Care Provider [phone] Assessment No assessment recorded. Plan of Treatment Reminders Order Date Submit Date Provider Last Modified By Organization Details Last Modified Time Details Appointments None recorded. Lab test, urine 2024 025 [email or web address] [address], [place], [address], 5 16:34:19 dhea-sulfat e, serum 2023 024 [facility] (Lab), [address], [place], [address], 4 18:53:41 hormone panel, serum or plasma 2023 024 [facility] (Lab), [address], [place], [address], 4 18:53:42 HbA1c (hemoglobin A1c), blood 2023 024 [facility] (Lab), [address], [place], [address], 4 18:53:40 progesteron e, serum 2023 024 [facility] (Lab), [address] [place], [address], 4 18:53:41 prolactin, serum 2023 024 [facility] (Lab), [address], [place], [address], 4 18:53:42 shbg (sex hormone-bin ding globulin), serum 2023 024 [facility] (Lab), [address], [place], [address], 4 18:53:43 testosteron e free/testos terone total, ratio, serum 2023 024 [facility] (Lab), [address], [place], [address], 4 18:53:43 TSH, serum or plasma 2023 024 [facility] (Lab), [address], [place], [address], 4 18:53:43 CBC w/ auto diff 2023 024 [facility] (Lab), [address], [place], [address], 4 18:53:40 Referral None recorded. Procedures None recorded. Surgeries None recorded. Imaging US, pelvis 2024 0[address], [place], [address], 5 22:26:43 US, transvagina l 2024 [address], [place], [address], 5 22:26:43 US, transvagina l 2024 025 [facility], [address], [place], [address], 18:17:51 Medication Orders None recorded. Patient TargetsNo targets recorded. Patient InstructionsNo instructions recorded. Reason for Referral None Reported. Results Created Date Observation Date Name Description Value Unit Range Abnormal Flag Note LastModifiedBy Organization Detail LastModifiedTime 03/09/20 24 03/09/2024 CBC W/DIF F WBC 8.2 10'3/ uL 3.5-10 .5 Not Available [facility] (Lab) [address], [place], [address], 03/14/2024 18:53:40 03/09/20 24 03/09/2024 CBC W/DIF F RBC 4.72 10'6/ uL (based on docume nted legal sex) 3.80-5 .20 Not Available [facility] (Lab) [address], [place], [address], 03/14/2024 18:53:40 03/09/20 24 03/09/2024 CBC W/DIF F HGB 11.5 g/dL (based on docume nted legal sex) 11.6-1 5.4 low Not Available [facility] (Lab) [address], [place], [address], 03/14/2024 18:53:40 03/09/20 24 03/09/2024 CBC W/DIF F HCT 36.7 % (based on docume nted legal sex) 34.0-4 5.0 Not Available [facility] (Lab) [address], [place], [address], 03/14/2024 18:53:40 03/09/20 24 03/09/2024 CBC W/DIF F MCV 77.8 fL 80.0-9 9.0 low Not Available [facility] (Lab) [address], [place], [address], 03/14/2024 18:53:40 03/09/20 24 03/09/2024 CBC W/DIF F MCH 24.4 pg 27.0-3 4.0 low Not Available [facility] (Lab) [address], [place], [address], 03/14/2024 18:53:40 03/09/20 24 03/09/2024 CBC W/DIF F MCHC 31.3 g/dL 32.0-3 5.5 low Not Available [facility] (Lab) [address], [place], [address], 03/14/2024 18:53:40 03/09/20 24 03/09/2024 CBC W/DIF F RDW 15.6 % 11.0-1 5.0 high Not Available [facility] (Lab) [address], [place], [address], 03/14/2024 18:53:40 03/09/20 24 03/09/2024 CBC W/DIF F plt 273 10'3/ uL 150-40 0 Not Available [facility] (Lab) [address], [place], [address], 03/14/2024 18:53:40 03/09/20 24 03/09/2024 CBC W/DIF F MPV 11.2 fL 8.8-12 .1 Not Available [facility] (Lab) [address], [place], [address], 03/14/2024 18:53:40 03/09/20 24 03/09/2024 CBC W/DIF F NRBC's 0.0 % 0.0 Not Available [facility] (Lab) [address], [place], [address], 03/14/2024 18:53:40 03/09/20 24 03/09/2024 CBC W/DIF F absolute NRBCs 0.0 10'3/ uL no refere nce range establ ished Not Available [facility] (Lab) [address], [place], [address], 03/14/2024 18:53:40 03/09/20 24 03/09/2024 CBC W/DIF F neutrophils 67.2 % 34.0-7 3.0 Not Available [facility] (Lab) [address], [place], [address], 03/14/2024 18:53:40 03/09/20 24 03/09/2024 CBC W/DIF F lymphocytes 22.1 % 15.0-5 0.0 Not Available [facility] (Lab) [address], [place], [address], 03/14/2024 18:53:40 03/09/20 24 03/09/2024 CBC W/DIF F monocytes 7.3 % 1.0-15 .0 Not Available [facility] (Lab) [address], [place], [address], 03/14/2024 18:53:40 03/09/20 24 03/09/2024 CBC W/DIF F eosinophils 2.8 % 0.0-8. 0 Not Available [facility] (Lab) [address], [place], [address], 03/14/2024 18:53:40 03/09/20 24 03/09/2024 CBC W/DIF F basophils 0.4 % 0.0-2. 0 Not Available [facility] (Lab) [address], [place], [address], 03/14/2024 18:53:40 03/09/20 24 03/09/2024 CBC W/DIF F immature granulocytes 0.2 % no define d refere nce range Not Available [facility] (Lab) [address] [place], [address], 03/14/2024 18:53:40 03/09/20 24 03/09/2024 CBC W/DIF F absolute neutrophils 5.5 10'3/ uL 1.5-8. 0 Not Available [facility] (Lab) [address], [place], [address], 03/14/2024 18:53:40 03/09/20 24 03/09/2024 CBC W/DIF F absolute lymphocytes 1.8 10'3/ uL 1.0-4. 0 Not Available [facility] (Lab) [address], [place], [address], 03/14/2024 18:53:40 03/09/20 24 03/09/2024 CBC W/DIF F absolute monocytes 0.6 10'3/ uL 0.2-1. 0 Not Available [facility] (Lab) [address], [place], [address], 03/14/2024 18:53:40 03/09/20 24 03/09/2024 CBC W/DIF F absolute eosinophils 0.2 10'3/ uL 0.0-0. 6 Not Available [facility] (Lab) [address], [place], [address], 03/14/2024 18:53:40 03/09/20 24 03/09/2024 CBC W/DIF F absolute basophils 0.0 10'3/ uL 0.0-0. 3 Not Available [facility] (Lab) [address], [place], [address], 03/14/2024 18:53:40 03/09/20 24 03/09/2024 CBC W/DIF [...] resul ts are expec janneth. Not Available [facility] (Lab) [address], [place], [address], 03/14/2024 18:53:40 03/09/20 24 03/09/2024 HEMOG LOBIN [...] >8.0% Actio n sugge sted Not Available [facility] (Lab) [address], [place], [address], 03/14/2024 18:53:40 03/09/20 24 03/09/2024 DHEA SULFA TE DHEA-sulfate 74 ug/dL Femal e Range s Age(y ) Range (ug/d L) 10-15 34-28 0 15-20 65-36 8 20-25 148-4 07 25-35 99-34 0 35-45 61-33 7 45-55 35-25 6 55-65 19-20 5 65-75 9-246 > 75 12-15 4 Not Available [facility] (Lab) [address], [place], [address], 03/14/2024 18:53:41 03/09/20 24 03/09/2024 PROGE STERO [...] Trime ster 58.70 -214. 00 Not Available [facility] (Lab) [address] [place], [address], 03/14/2024 18:53:41 03/09/20 24 03/09/2024 PROLA CTIN prolactin, total 11.00 NG/mL 4.79-2 3.30 This assay was perfo rmed using [employer] ratio n reage nts and test kits. Value s obtai ana with other assay metho ds or kits canno t be used [facility] . Not Available [facility] (Lab) [address] [place], [address], 03/14/2024 18:53:42 03/09/20 24 03/09/2024 FSH, LH, ESTRA DIOL estradiol 133.0 pg/mL This assay was perfo rmed using [employer] ratio n reage nts and test kits. Value s obtai ana with other assay metho ds or kits canno t be used [facility] . Femal e Estra diol Range s: Folli cular phase 12.4- 233 pg/mL Ovula tion phase 41.0- 398 pg/mL Lutea l phase 22.3- 341 pg/mL Postm enopa usal <5-13 8 pg/mL Healt hy Pregn ant Women 1st Trime ster 154-3 243 pg/mL 2nd Trime ster 1561- 94061 pg/mL 3rd Trime ster 8525- >3000 0 pg/mL Not Available [facility] (Lab) [address] [place], [address], 03/14/2024 18:53:42 03/09/20 24 03/09/2024 FSH, LH, ESTRA DIOL FSH 2.2 mIU/m L This assay was perfo rmed using [employer] ratio n reage nts and test kits. Value s obtai ana with other assay metho ds or kits canno t be used [facility] . Femal es Folli cular : 3.5-1 2.5 mIU/m L Ovula tion: 4.7-2 1.5 mIU/m L Lutea l: 1.7-7 .7 mIU/m L Postm enopa use: 25.8- 134.8 mIU/m L Not Available [facility] (Lab) [address], [place], [address], 03/14/2024 18:53:42 03/09/20 24 03/09/2024 FSH, LH, [...] use: 7.7-5 8.5 mIU/m L Not Available [facility] (Lab) [address], [place], [address], 03/14/2024 18:53:42 03/09/20 24 03/09/2024 TSH, REFLE X FREE T4 TSH 1.45 uIU/m L 0.30-5 .33 Not Available [facility] (Lab) [address] [place], [address], 03/14/2024 18:53:43 03/09/20 24 03/09/2024 HUMAN SEX HORMO NE HYACINTH NG GLOBU SANDRITA sex hormone binding globulin 32.1 nmole s/L 18.2-1 35.5 Not Available [facility] (Lab) [address] [place], [address], 03/14/2024 18:53:43 03/09/20 24 03/09/2024 TESTO STERO NE, FREE( DIALY SIS) AND TOTAL (LC/M S/MS) testosterone , total 22 NG/dL 2-45 For addit ional [facility] cuevas e refer to http: //sergei hillque stdia gnost ics.c om/fa q/ Total Testo stero neLCM SMSFA Q165 (This link is being provi ded for infor matching nal/ educa sarita l purpo ses only. ) This test was devel oped and its jaxon tical perfo rmanc e vasyl cteri stics have been deter mined by [employer] [facility] Juan Manuel ls [place], [place]. It has not been clear ed or appro trinidad by the U.S. Food and Drug Admin istra tion. This assay has been valid ated pursu ant to the CLIA regul ation s and is used for clini rafael purpo ses. Not Available [facility] (Lab) [address], [place], [address], 03/14/2024 18:53:43 03/09/20 24 03/09/2024 TESTO STERO NE, FREE( DIALY SIS) AND TOTAL (LC/M S/MS) testosterone , free 2.8 pg/mL 0.1-6. 4 This test was devel oped and its jaxon tical perfo rmanc e vasyl cteri stics have been deter mined by [employer] [facility] [place], [place]. It has not been clear ed or appro trinidad by the U.S. Food and Drug Admin istra tion. This assay has been valid ated pursu ant to the CLIA regul ation s and is used for clini rafael purpo ses. Perfo rming Organ izati on [facility] [place] [facility] n: Site ID: AMD Name: [employer] leslie lock [facility] Addre ss: [id number] [facility] [place], [place] Direc tor: Nichole Crespo MD PhD Not Available [facility] (Lab) [address], [place], [address], 03/14/2024 18:53:43 05/22/19 25 05/22/2024 pregn darrell test, urine HCG negati ve Not Available [place] [address], [place], [address], 05/22/2024 16:33:46 02/17/20 24 02/17/2024 US, wilfredo t, bilat eral, compl ete No observ ation record ed. [email or web address] [facility] [address], [place], [address], 02/21/2024 16:38:50 05/22/19 25 05/23/2024 US, trans vagin al No observ ation record ed. ginette [place] [address], [place], [address], 05/23/2024 18:17:51 05/25/19 25 05/25/2024 US, pelvi s No observ ation record ed. [email or web address] [place] [address], [place], [address], 05/25/2024 18:39:14 05/25/19 25 05/25/2024 US, trans vagin al No observ ation record ed. [email or web address] [place] [address], [place], [address], 05/25/2024 18:39:27 05/25/19 25 05/25/2024 US, pelvi s No observ ation record ed. [email or web address] [address], [place], [address], 05/30/2024 16:13:38 05/25/19 25 05/25/2024 US, pelvi s No observ ation record ed. [email or web address] [address], [place], [address], 05/30/2024 16:13:38 05/25/19 25 05/25/2024 US, pelvi s No observ ation record ed. [email or web address] [address], [place], [address], 05/30/2024 16:13:39 Result Notes None recorded. Problems Name Problem SNOMED Code Status Onset Date Resolution Date Notes Provider Name and Address Organization Details Recorded Time SNOMED CT Concept Completed 201711/27/2020 Encntr for cryogenics repairer exam (general ) (routine ) w/o abn findings ;Practic e ID: 0001 Emily Caruso MD [address], [place], [address], [facility] 10:28:[address] Concept Completed 201711/27/2020 Encntr for routine child health exam w/o abnormal findings ;Recorde d Elsewher e: No Locat ion: [facility] S ource: EHR Dynamiter yuki: N Priscillati ce ID: 0001 Perico lable Time: 10:30:00 AM Emily Caruso MD [address], [place], [address], [facility] 1 10:28:45 Surveill ance of contrace ption Completed 201711/27/2020 Encounte r for surveill ance of contrace ptives, unspecif ied;Braden rded Elsewher e: No Locat ion: [facility] S ource: EHR Dynamiter yuki: N Priscillati ce ID: 0001 Perico lable Time: 08:30:00 AM Emily Caruso MD [address], [place], [address], [facility] 10:28:53 Term pregnanc y delivere d [id number] Completed 201811/27/2020 Encounte r for full-ter m uncompli cated delivery ;Practic e ID: 0001 Emily Caruso MD [address], [place], [address], [facility] 10:28:55 Single live from singleto n pregnanc y [id number] Completed 201811/27/2020 Single live ;Pr actice ID: 0001 Emily Caruso MD [address], [place], [address], [facility] 10:28:44 Gestatio n period, 38 weeks [id number] Completed 201807/19/2020 38 weeks gestatio n of pregnanc y;Practi ce ID: 0001 Chasity fragoso, [facility] 14:38:03 Pregnanc y detectio n examinat ion Completed 201807/19/2020 Encounte r for pregnanc y test, result positive ;Recorde d Elsewher e: No Locat ion: [facility] S ource: EHR Dynamiter yuki: N Practi ce ID: 0001 Perico lable Time: 11:00:00 AM Chasity fragoso, [facility] 14:38:16 Gestatio n period, 8 weeks 58261190 Completed 201807/19/2020 8 weeks gestatio n of pregnanc y;Practi ce ID: 0001 Chasity fragoso, [facility] 14:38:05 Antenata l screenin g Completed 201807/19/2020 Encounte r for other specifie d antenata l screenin g;Practi ce ID: 0001 Chasity Goldman null, [facility] 14:37:57 Pregnanc y, childbir th and puerperi um finding Completed 201811/27/2020 Encntr for suprvsn of normal first preg, first trimeste r;Practi ce ID: 0001 Emily Caruso MD [address], [place], [address], [facility] 10:28:39 Increase d frequenc y of urinatio n [id number] Completed 201807/19/2020 Frequenc y of micturit ion;Prac agustin ID: 0001 Chasity fragoso [facility] 14:38:07 Antenata l screenin g for malforma tion Completed 201807/19/2020 Encounte r for antenata l screenin g for malforma tions;Re corded Elsewher e: No Locat ion: [facility] S ource: EHR Dynamiter yuki: N Practi ce ID: 0001 Perico lable Time: 02:45:00 PM Chasity fragoso [facility] 14:37:59 Pregnanc y, childbir th and puerperi um finding Completed 201811/27/2020 Encounte r for supervis ion of normal 1st pregnanc y;Record ed Elsewher e: No Locat ion: [facility] S ource: EHR Dynamiter yuki: N Practi ce ID: 0001 Perico lable Time: 04:30:00 PM Emily Caruso MD [address], [place], [address], [facility] 10:28:36 Normal pregnanc y in multigra alex [id number] 42351 Completed 201807/19/2020 Encounte r for suprvsn of normal pregnanc y, third trimeste r;Record ed Elsewher e: No Locat ion: [facility] S ource: EHR Dynamiter yuki: N Practi ce ID: 0001 Perico lable Time: 01:00:00 PM Chasity fragoso [facility] 14:38:14 Pregnanc y, childbir th and puerperi um finding Completed 201811/27/2020 Encntr for suprvsn of normal first preg, third trimeste r;Practi ce ID: 0001 Emily Caruso MD [address], [place], [address], [facility] 10:28:41 Lochia finding Completed 201907/19/2020 Encounte r for routine postpart um follow-u p;Practi ce ID: 0001 Chasity fragoso, [facility] 14:38:12 Insertio n of intraute rine contrace ptive device Completed 201907/19/2020 Encounte r for insertio n of intraute rine contrace ptive device;R ecorded Elsewher e: No Locat ion: [facility] S ource: EHR Dynamiter yuki: N Practi ce ID: 0001 Perico lable Time: 01:45:00 PM Chasity fragoso, [facility] 14:38:10 Pregnanc y test negative [id number] Completed 201911/27/2020 Encounte r for pregnanc y test, result negative ;Recorde d Elsewher e: No Locat ion: [facility] S ource: EHR Dynamiter yuki: N Practi ce ID: 0001 Perico lable Time: 01:45:00 PM Emily Caruso MD [address], [place], [address], [facility] 10:28:34 Contrace ptive sheath status [id number] Completed 201907/19/2020 Encounte r for routine checking of intraute rine contrace p dev;Prac agustin ID: 0001 Chasity fragoso, [facility] 14:38:[address] Concept Completed 201911/27/2020 Encounte r for other contrace ptive manageme nt;Pract ice ID: 0001 Emily Caruso MD [address], [place], [address], [facility] 10:28:51 Body mass index 40+ - severely obese [id number] Completed 202001/23/[address] [facility] 09:33:57 Problem Notes None recorded. Procedures Surgical History Date Name Laterality Status Provider Name and Address Organization Details Recorded Time 12/17/19 21 Date of Last Pap Smear completed Myranda Garrett [facility] 07/14/2023 17:53:18 01/29/20 20 IUD Removal completed Homero Hawthorne MD [address], [place], [address], [facility] 01/29/2020 19:15:11 02/03/20 16 Tonsillectomy completed Cira Lewis [facility] 01/23/2021 09:35:46 Imaging Results None recorded. Procedure Notes None recorded. Medical Equipment None Reported. Allergies Allergen ID Allergen Name Allergen Category Reaction Reaction Severity Criticality Documentation Date Start Date Code Code System Note Provider Name and Address Organization Details Recorded Time 24938 Benadryl medicatio n Not available Not available Not available 07/19/2020 53282 7 RxNorm Chasity Goldman [facility] 18:18:23 66130 Imitrex medicatio n Not available Not available Not available 07/19/2020 21460 3 RxNorm [address] [facility] 18:19:08 1825 amoxicill in medicatio n Not available Not available Not available 11/21/2019 723 RxNorm Peggy Gardner [facility] 0 14:14:39 Medications Name Sig [...] Lord e: No Locat ion: [facility] M odify By: mario lowry DateTime [...] Updated DateTime 05/22/2024 162.56 cm 38.4 kg/m2 029634.69 g 116/76 mm[Hg] [facility] 05/22/2024 16:32:19 Date Recorded Body height Body mass index (BMI) Body weight Systolic And Diastolic Provider Name and Address Organization Details Last Updated DateTime 06/05/2024 162.56 cm 38.1 kg/m2 042458.51 g 131/74 mm[Hg] Myranda Garrett [facility] 06/05/2024 16:26:24 Date Recorded Body height Body mass index (BMI) Body weight Systolic And Diastolic Provider Name and Address Organization Details Last Updated DateTime 02/12/2024 162.56 cm 37.1 kg/m2 96033.95 g 113/72 mm[Hg] [place]ia Swan [facility] 02/12/2024 11:08:56 Date Recorded Body height Body mass index (BMI) Body weight Systolic And Diastolic Provider Name and Address Organization Details Last Updated DateTime 03/09/2024 162.56 cm 37.4 kg/m2 04895.14 g 113/72 mm[Hg] [facility] 03/09/2024 10:49:17 Social History Question Answer Notes LastModified by Organizat ion Details LastModified Time Tobacco Smoking Status Never Smoker Madisyn Painting [place], [facility] 12/12/2021 16:18:47 Do You Have An Advance Directive? No [email or web address] Information n ot available 01/23/2021 How Many Years Have You Consumed Alcohol? 4 [email or web address] Information not available 05/22/2024 Are You Blind Or Do You Have Difficulty Seeing? No [email or web address] Information n ot available 01/23/2021 What Is Your Level Of Caffeine Consumption? Heavy [email or web address] Information not available 05/22/2024 How Much Tobacco Do You Chew? None [email or web address] Information not available 09/01/2021 In The 14 Days Before Symptom Onset, Have You Had Close Contact With A Laboratory-confirm ed COVID-19 While That Case Was Ill? No Information n ot available 01/23/2021 In The 14 Days Before Symptom Onset, Have You Had Close Contact With A Person Who Is Under Investigation For COVID-19 While That Person Was Ill? No Information not available 01/23/2021 Have You Been To An Area Known To Be High Risk For COVID-19? No [email or web address] Information not available 01/23/2021 Are You Deaf Or Do You Have Serious Difficulty Hearing? No [email or web address] Information not available 01/23/2021 What Type Of Diet Are You Following? REGULAR [email or web address] Information n ot available 01/23/2021 What Is The Highest Grade Or Level Of School You Have Completed Or The Highest Degree You Have Received? [id number] [email or web address] Information not available 01/23/2021 Are There Any Guns Present In Your Home? Yes [email or web address] Information not available 01/23/2021 Have You Ever Been Counseled For Unhealthy Alcohol Use? No Information not available 12/12/2021 Do You Use Protection During Sex? No [email or web address] Information not available 05/22/2024 Do You Use Your Seat Belt Or Car Seat Routinely? Yes [email or web address] Information not available 01/23/2021 Do You Have Smoke And Carbon Monoxide Detectors In Your Home? No [email or web address] Information not available 09/01/2021 How Much Tobacco Do You Smoke? No [email or web address] Information not available 01/23/2021 Do You Use Sunscreen Routinely? No [email or web address] Information not available 06/29/2023 Have You Used IV Drugs? No [email or web address] Information not available 01/23/2021 Do You Have Difficulty Walking Or Climbing Stairs? No [email or web address] Information not available 12/12/2021 Sex: Unknown Functional Status Question Answer Note LastModified by Organizat ion Details LastModified Time Do you use any illicit or recreational drugs? No [email or web address] Information not available 01/23/2021 What is your level of alcohol consumption? Occasional [email or web address] Information not available 05/22/2024 Are you able to walk independently without assistance or assistive devices? YESWOREST [email or web address] Information not available 01/23/2021 Are you able to care for yourself independently? 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 No [email or web address] Information not available 12/12/2021 What is your exercise level? Moderate [email or web address] Information not available 01/23/2021 Mental Status Question Answer Note LastModified by Organization D etails LastModified Time Do you feel stressed (tense, restless, nervous, or anxious, or unable to sleep at night)? [id number] [email or web address] Information not available 01/23/2021 Family History Relationship Description Onset Age of this Age Resolved Age Notes LastModified by Organization Details LastModified Time Mother Hyperlipidem ia [email or web address] Not available 2024 16:08:43 Father Diabetes mellitus [email or web address] Not available 2019 14:15:13 Father Hypertensive disorder [email or web address] Not available 2019 14:15:21 Paternal Grandfather Diabetes mellitus [email or web address] Not available 2019 14:15:13 Paternal Grandfather Malignant neoplasm of colon [email or web address] Not available 08/09 15:37:12 Maternal Aunt Carcinoma in situ of breast [email or web address] Not available 2024 16:08:43 Medical History Condition [...] ICD10 Code Diagnosis IMO Codes Diagnosis Note [id number] [facility] [address],[facility] [place] [address] 11/21/2019 14:12:46 11/21/2019 15:22:25 test negative [id number] Z32.02 [id number] [facility] [address],[facility] [place] [address] 12/13/2019 11:10:05 12/13/2019 13:23:57 Pain in pelvis 66220009 R10.2 We reviewed TVUS today which appears [...] counseling and review of plan of care. [id number] Homero Hawthorne MD [place] [address],[place] [address] 12/13/2019 11:10:34 12/13/2019 14:19:03 Pain in pelvis 11075829 R10.2 [id number] Homero Hawthorne MD [place] [address],[place] [address] 01/29/2020 16:11:50 01/30/2020 15:19:24 Contraception care management 026114151 Z30.9 IUD was removed without complicati ons. She tolerated well. [id number] Homero Hawthorne MD [place] [address],[place] [address] 07/19/2020 14:26:15 07/19/2020 15:18:01 Hidradenitis suppurativa 58883185 L73.2 This patient is a 19-year-ol d [...] up as needed. Venereal d isease screening 253191592 Z11.3 [id number] Emily Caruso MD [place] [address],[place] [address] 11/27/2020 10:15:58 11/27/2020 15:42:10 Venereal disease screening 485339621 Z11.3 Sexually t ransmitted infectious disease 9830857 A64 [id number] Emily Caruso MD [place] [address],[place] [address] 12/16/2020 11:11:22 12/16/2020 14:09:32 Gynecologic examination 42298829 Z01.419 [id number] Homero Hawthorne MD [place] [address],[place] [address] 01/23/2021 09:20:25 01/23/2021 10:14:53 Contraception care management 150716946 Z30.9 This patient is a 20-year-ol d [...] the methods we discussed. Gynecologi c examination 49944217 Z01.419 Obesity 799513027 E66.9 E66.01 [id number] Emily Caruso MD [place] [address],[place] [address] 02/14/2021 11:48:03 02/14/2021 12:13:14 Cyst of skin 601358216 L72.9 [id number] Jadyn Mccormack CNM [place] [address],[place] [address] 07/14/2021 12:21:26 07/15/2021 07:49:02 [id number] Homero Hawthorne MD [place] [address],[place] [address] 07/14/2021 12:20:49 07/14/2021 13:11:52 screening 445503453 Z36.87 O36.80X0 Z3A.01 10015 Homero Hawthorne MD [place] [address],[place] [address] 07/28/2021 13:51:16 07/28/2021 14:23:45 Uncertain viability of 881881176 O36.80X0 Z3A.01 [id number] Kat Almazan CNM [facility] [address],[place] [address] 08/08/2021 11:25:37 08/08/2021 12:09:46 Amenorrhea 78731938 N91.2 [id number] POORNIMA Whaley [facility] [address],[place] [address] 03/16/2023 10:59:46 03/16/2023 12:23:53 Gynecologic examination 81246276 Z01.419 WWEBC - condomspap due 11/2023gc/c t/trich [...] plan if desired. Venereal d isease screening 179239191 Z11.3 [id number]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
--- OUTSIDE RECORDS SUMMARY | 2025-03-07 18:35 | XMS_ITS | Clinical Summary ---
Author Organization [facility] Address [address] [place] [address] Care Team Providers Care Welt Drawer Name Role Phone Ana Maria Liz MD Primary Care Provider [phone] Source Comments [facility],non-owned Affiliates and Associated Physician Practices is amultiple site organization consisting of ambulatory clinics and hospital sitesin [place], [place], [place] and [place]. This disclosure is being madepursuant to the Care Everywhere program and may not contain all information available regarding this patient. Last updated 17.[facility] Allergies Active Allergy Reactions Criticality Noted Date [...] DEPRESSION SCREENING 03/29/2024 COVID-19 VACCINE (1 - 2024-2 6 season) 2024 INFLUENZA VACCINE (#1) 2024 ZOSTER [...] patient's age to complete this topic Insurance [facility] Care Teams Welt Drawer Relationship Specialty Start Date End Date Ana Maria Liz MD PCP - General Pediatrics 10/25/15
== END 2025-03-07 14:29 | disposition home or self-care (01) ==
PROVIDERS: Emergency Provider Emergency Medicine; PCP Clinical Nurse Specialist
DX: M54.50 Low back pain, unspecified (principal); Z87.891 Personal history of nicotine dependence
CPT/HCPCS: 99283